=== PATIENT | male | born 1945 | race Caucasian/White ===

== ENCOUNTER → 2016-06-12 | Outpatient (CLI) | payer OTHER, MEDICARE ==
[2016-06-12 10:16] LABS: BASO % 0.6 %; BASO ABS # 0.04 K/uL (0-0.2); COMPLETE YES; EOS % 1.4 %; IG% 0.3 %; LYMPH % 20.5 %; LYMPH ABS # 1.35 K/uL (1.2-3.4); MEAN CELL VOLUME 90.6 fL (80-100); MEAN CORPUSCULAR HEMOGLOBIN 31.3 pg (25-34); MEAN CORPUSCULAR HGB CONC 34.6 g/dl (32-36); MEAN PLATELET VOLUME 12.4 fL (7.4-10.4); MONO % 7.2 %; PLATELET COUNT 133 K/uL (130-400); RED BLOOD COUNT 5.08 M/uL (4.7-6.1); WHITE BLOOD COUNT 6.57 K/uL (4.8-10.8)
[2016-06-12 10:56] LABS: ALT/SGPT 29 U/L (12-78); AST/SGOT 14 U/L (15-37); BLOOD UREA NITROGEN 16 mg/dl (7-18); BUN/CREATININE RATIO 18.9 (10-20); CALCIUM 9.3 mg/dl (8.5-10.1); CARBON DIOXIDE 27 mmol/L (21-32); CHLORIDE 107 mmol/L (98-107); CREATININE 0.86 mg/dl (0.60-1.40); GLUCOSE 99 mg/dl (70-99); HDL CHOLESTEROL 58 mg/dl; POTASSIUM 4.3 mmol/L (3.5-5.1); SODIUM 141 mmol/L (136-145)
[2016-06-12 10:57] LABS: CHOLESTEROL 175 mg/dl (0-200); ESTIMATED AVERAGE GLUCOSE 111 mg/dl; HA1C FLAG Normal (Normal); LDL CHOLESTEROL CALCULATED 99 mg/dl; TRIGLYCERIDES 91 mg/dl (0-150); VERY LOW DENSITY LIPOPROT CALC 18 mg/dl
[2016-06-12 11:22] LABS: URINE APPEARANCE CLEAR (CLEAR); URINE BILIRUBIN NEG (NEG); URINE COLOR YELLOW; URINE NITRITE NEG (NEG); URINE SPECIFIC GRAVITY 1.017 (1.000-1.030); UROBILINOGEN NEG (NEG)
[2016-06-12 11:24] LABS: MANUAL MICROSCOPIC REQUIRED? NO; REVIEW REQ? NO
--- NOTE | 2016-06-16 13:52 | CODING QUERY MEDICAL NECESSITY ---
SUPPORTING DIAGNOSIS NEEDED Dr. Iniguez, A supporting diagnosis is required for the test/procedure performed on this patient in order for us to be reimbursed by the patient's insurance. Please provide a supporting diagnosis for the following test/procedure listed below next to the test name along with your signature. *If there is no additional diagnosis for this patient that would support the following test/procedure please document that below next to the test/procedure. Test(s)/Procedure(s) that require a supporting diagnosis: * 65037 GLYCATED HEMOGLOBIN DIAGNOSIS: DATE OF SERVICE: 06/12/16 Provider Signature: Date: Thank you Jaime And[facility] Information Management Once completed, please kindly fax back to [phone] For questions please call [phone]
== END | disposition home or self-care (01) ==
LOC: C.LAB1850 09:35
PROVIDERS: ATTEND Internal Medicine
DX: E78.00 Pure hypercholesterolemia, unspecified (principal); R73.9 Hyperglycemia, unspecified

== ENCOUNTER → 2017-06-22 | Outpatient (CLI) | payer OTHER, MEDICARE ==
[2017-06-22 10:33] LABS: HEMOGLOBIN A1C 5.4 % (4.5-5.6)
[2017-06-22 10:34] LABS: ALT/SGPT 32 U/L (12-78); AST/SGOT 16 U/L (15-37); BLOOD UREA NITROGEN 20 mg/dl (7-18); CALCIUM 9.6 mg/dl (8.5-10.1); CARBON DIOXIDE 27 mmol/L (21-32); CHOLESTEROL 159 mg/dl (0-200); CREATININE 0.84 mg/dl (0.60-1.40); GLUCOSE 82 mg/dl (70-99); POTASSIUM 4.5 mmol/L (3.5-5.1); SODIUM 139 mmol/L (136-145)
[2017-06-22 10:37] LABS: LDL CHOLESTEROL CALCULATED 94 mg/dl
[2017-06-22 10:46] LABS: BASO % 0.4 %; BASO ABS # 0.03 K/uL (0-0.2); EOS % 2.7 %; EOS ABS # 0.19 K/uL (0-0.5); HEMATOCRIT 46.7 % (42-52); HEMOGLOBIN 16.2 g/dL (14.0-18.0); IG# 0.02 K/uL (0.00-0.02); LYMPH % 18.8 %; LYMPH ABS # 1.32 K/uL (1.2-3.4); MEAN CELL VOLUME 93.6 fL (80-100); MEAN CORPUSCULAR HEMOGLOBIN 32.5 pg (25-34); MEAN CORPUSCULAR HGB CONC 34.7 g/dl (32-36); MONO % 7.5 %; MONO ABS # 0.53 K/uL (0.11-0.59); NEUT % 70.3 %; NEUT ABS # 4.94 K/uL (1.4-6.5); PLATELET COUNT 127 K/uL (130-400); RED CELL DISTRIBUTION WIDTH CV 12.6 % (11.5-14.5); RED CELL DISTRIBUTION WIDTH SD 42.7 fL (36.4-46.3); WHITE BLOOD COUNT 7.03 K/uL (4.8-10.8)
== END | disposition home or self-care (01) ==
LOC: C.LAB1850 09:18
PROVIDERS: ATTEND Internal Medicine
DX: E78.00 Pure hypercholesterolemia, unspecified (principal); R73.9 Hyperglycemia, unspecified

== ENCOUNTER 2022-01-20 13:55 | Inpatient (IN) ==
--- NOTE | 2022-01-20 14:33 | CT Scan Report ---
CT SCAN OF THE BRAIN WITHOUT IV CONTRAST CLINICAL HISTORY: Left upper and lower extremity numbness. COMPARISON STUDY: No priors. TECHNIQUE: Unenhanced axial CT scan of the brain is performed from the vertex to the skull base. A do se lowering technique was utilized adhering to the principles of ALARA. CT DOSE: 614.27 mGy.cm FINDINGS: Brain parenchyma: There is age-related involutional change noting moderate subcortical and periventri cular microangiopathic disease. There is no hemorrhage, mass effect, or evidence of acute territorial ischemia by CT criteria. A chronic lacunar infarct is noted in the left thalamus. Calixto-white matter differentiation is preserved. No extra-axial fluid collection is seen. Ventricles, sulci, cisterns: Prominent secondary to involutional change. Intracranial vasculature: There is atherosclerotic calcification of the cavernous carotid and vertebr al artery. Calvarium: Unremarkable. Sinuses and mastoids: The visualized paranasal sinuses are clear. The mastoid air cells are well pneu matized. Orbits: The bony orbits are grossly intact. IMPRESSION: There is no hemorrhage, mass effect, or evidence of acute territorial ischemia by CT antelmo olmedo. ACT 112: Negative or not required by law. Electronically signed by: Dewayne Cevallos M.D. 01/20/2022 2:30 PM
[2022-01-20 14:42] LABS: Hematocrit (blood only) 47.2 % (40.1-51.0); Hemoglobin 16.5 g/dl (14.0-18.0); Mean Corpuscular Hemoglobin 31.6 pg (25.0-34.0); Mean Corpuscular Volume 90.4 fL (80.0-100.0); Mean Platelet Volume 11.9 fL (9.4-12.4); Platelet Count 147 K/uL (130-400); RDW Coefficient of Variation 12.2 % (11.5-14.5); RDW Standard Deviation 40.4 fL (36.4-46.3); Red Blood Count 5.22 M/uL (4.63-6.08)
[2022-01-20 15:01] LABS: Partial Thromboplastin Ratio 1.1; Partial Thromboplastin Time 29.8 Seconds (21.0-31.0); Prothrombin Time 10.7 Seconds (9.0-12.0)
[2022-01-20 15:05] LABS: Alanine Aminotransferase 19 U/L (7-52); Albumin Globulin Ratio 1.7 (0.9-2); Albumin Level 4.7 gm/dl (3.4-5.0); Alkaline Phosphatase 99 U/L (34-104); Anion Gap 9 (3-11); Aspartate Aminotransferase 20 U/L (13-39); BUN Creatinine Ratio 20.5 (10-20); Blood Urea Nitrogen 17 mg/dl (6-23); Calcium 9.9 mg/dl (8.5-10.1); Carbon Dioxide 22 mmol/L (21-32); Chloride 106 mmol/L (98-107); Est GFR (African American) 100.5 ml/min; Est GFR (Non-African American) 86.7 ml/min; Globulin 2.7 gm/dl (2.5-4.0); Glucose 101 mg/dl (70-99(Fasting)); Magnesium 1.8 mg/dl (1.7-2.4); Potassium 4.1 mmol/L (3.5-5.1); Sodium 137 mmol/L (136-145); Total Protein 7.4 gm/dl (6.0-8.3)
--- NOTE | 2022-01-20 17:00 | Electrocardiogram Report ---
Test Reason : Blood Pressure : / mmHG Vent. Rate : 098 BPM Atrial Rate : 098 BPM P-R Int : 188 ms QRS Dur : 090 ms QT Int : 356 ms P-R-T Axes : 051 016 067 degrees QTc Int : 454 ms Poor data quality, interpretation may be adversely affected Sinus rhythm with occasional Premature ventricular complexes Possible Left atrial enlargement Left ventricular hypertrophy Nonspecific ST and T wave abnormality Abnormal ECG No previous ECGs available Confirmed by Vadim Mora ([id number]) on 01/20/2022 4:59:45 PM Referred By: Confirmed By:Kirt Mora
[2022-01-20] MEDS: SODIUM CHLORIDE 0.9% 1000ML 1,000 ML IV SCH ×2 (17:01→23:43)
--- NOTE | 2022-01-20 17:01 | Emergency Department Note ---
Impression & Plan Stroke-like symptoms, Hypertension, Acute left-sided muscle weakness ED Provider Note INFORMANT: Patient and family ED PROVIDER(S): Addi Ibrahim MD CHIEF COMPLAINT: Numbness and weakness PLAN: Disposition: Admitted Condition: Good Outpatient prescription management: none Referral: None MEDICAL DECISION MAKING: Patient presented because of left-sided weakness that had some mild numbness. This occurred yesterday. Patient is not within the window for TNKase. His physical examination was concerning for weakness. He had slight drift in the left upper and left lower extremities. There was some drooping of the left nasolabial fold. A CT scan did not show any acute evidence of ischemia. His CBC and chemistry panel were unremarkable. The patient's ECG showed a sinus rhythm. I discussed the patient's findings with him and family. In light of his symptoms and the concern that he may have had a CVA and it is just not seen on CT imaging. Further management in the hospital was felt to be appropriate. Patient and family were in agreement. Patient had taken aspirin prior to arrival. He was given gentle saline hydration. He was noted to be moderately hypertensive. No medications for his blood pressure were given. The patient had a consultation placed with the [facility]. I did discuss the case with Dr. Lopez. He excepted the patient for admission. He did request CT angiography performed of the head and neck. This was ordered. The patient was found to have stenosis in the left carotid and incidental aneurysm noted. Patient was admitted by internal medicine for further management. Triage Nursing notes reviewed and agree them. Vital Signs: reviewed and remarkable for hypertension Differential diagnosis: CVA, TIA, infection, dehydration, metabolic abnormality, hypo/hyperglycemia, electrolyte disturbance, anemia, hypoxia, cardiac sources, intracerebral event, toxicologic, neurologic, as well as other pathologies. Diagnostics interpreted by me: ECG: Twelve-lead ECG reveals a sinus rhythm at 90 bpm. PVCs present. Left atrial enlargement and LVH present. Nonspecific ST and T wave abnormality. No acute ST elevation. Cardiac Monitoring: Cardiac monitoring ordered by me: The patient was placed on continuous cardiac monitoring and observed. It revealed a sinus rhythm at 78 beats per minute without ectopy or evidence of dysrhythmia. Imaging studies: Head CT: A noncontrast CT scan of the head was performed and was negative for tumor, fracture, intracranial hemorrhage, or other acute pathology. HPI: The patient is a 76year old male who presents to the Emergency Room with complaints of left-sided weakness. This started yesterday and is noted in the arm and leg. Patient states that the leg started first and then by the evening he noted some difficulty with the left arm. The patient also notes the following associated symptoms, none. The patient has taken a dose of aspirin prior to arrival for relieving factors. Current pain is rated as 0/10. Patient has a history of hypertension but no history of CVA/TIA. Pt denies LOC, headache, fevers, chills, diaphoresis, visual changes, neck pain, chest pain, breathing difficulties, nausea, vomiting, abdominal pain, back pain, melena, hematochezia, urinary symptoms, lymphadenopathy, rash, or other complaints. ROS: See above HPI for pertinent positives & negatives. A total of 10 systems reviewed and were otherwise negative. 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 Oropharynx unremarkable. EYES: Normal conjunctiva. Sclera non-icteric. PERRLA. EOMI. NECK: Inspection normal. Non-tender. Supple. No nuchal rigidity. FROM. No masses. RESPIRATORY: Clear to auscultation. No wheezes. No rales. Normal respiratory effort. CARDIAC: Normal rate. Normal rhythm. No murmurs. No rubs. Extremities warm and well perfused. Pulses equal. No JVD. GI: Soft, non-distended. No tenderness to palpation. No rebound or guarding. No masses. RECTAL: Deferred. MUSCULOSKELETAL: Atraumatic. Chest examination reveals no tenderness. The back is symmetrical on inspection without obvious abnormality. There is no CVA tenderness to palpation. No joint edema. LOWER EXTREMITIES: Calves are equal size bilaterally and non-tender. No edema. No discoloration. NEURO: Normal sensorium. There is mild flattening of the left nasolabial fold. The patient has some slight drift in the left upper and left lower extremities. 4 out of 5 strength in the left upper and left lower extremity. No other sensory or motor deficits noted. SKIN: No rash or jaundice noted. Addi Ibrahim MD Past Med/Surg History Medical History BPH (benign prostatic hyperplasia) Dry skin History of colon polyps Hypercholesterolemia Hyperglycemia Hyperlipidemia Hypertension Hypertension Seborrheic keratosis Surgical History History of colonoscopy History of esophagogastroduodenoscopy (EGD) with polyp removal History of wisdom tooth extraction Laryngeal polyp benign polypectomy in the late Family History Mother Breast cancer Cancer Some urothilial cancer Father Heart disease Myocardial infarction Sister Multiple sclerosis Other No family history of adverse response to anesthesia Denies family history of Prostate cancer Coronary heart disease Colorectal cancer Social History Smoking Status: Never smoker Age Started Using Tobacco: 22; Age Quit Using Tobacco: 42; packs per day: 0.5; Second Hand Exposure: No; Hx Alcohol Use: Yes Alcohol type: beer Alcohol Intake Frequency Comment: about 3-4 beers on Fridays and Saturdays. 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 Feels Safe at Home: Yes Childhood Exposure to Second-Hand Smoke: Yes caffeine: Yes Dental Care, Regularly: Yes Physical Activity Frequency: 5-6 Times per Week Seatbelt Use: always Sunscreen Use: Yes Assistive Devices: Glasses Allergies Allergies Allergy/AdvReac Type Severity Reaction Status Date / Time No Known Allergies Allergy Verified 07/05/21 08:49 Home Meds Home Medications Medication Instructions Recorded Confirmed acetaminophen 500 mg tablet 1,000 mg PO Q6H PRN Pain 06/17/20 01/20/22 (Tylenol Extra Strength) Previous Rx's Medication Instructions Recorded ibuprofen 600 mg tablet 600 mg PO Q8H PRN pain #10 tabs 05/27/20 amoxicillin 500 mg tablet 2,000 mg PO UD PRN prior to dental 06/10/20 procedures #16 tabs lisinopril 20 mg tablet See Rx Instructions .Route 09/26/21 .COMPLEX #90 tabs simvastatin 80 mg tablet 80 mg PO .COMPLEX #90 tabs 11/25/21 Results & Data (ED) Vital Signs Vital Signs - 24 hr 01/20/22 14:03 01/20/22 14:26 01/20/22 16:18 Temperature 36.8 C Temperature Source Temporal Artery Scan Pulse Rate 98 H Pulse Rate [Right Finger] 90 Respiratory Rate 20 19 Respiratory Effort / Characteristics Non-Labored Respiratory Depth Normal Normal Blood Pressure 151/101 H Blood Pressure [Right Arm] 184/123 H Blood Pressure Mean 117 Blood Pressure Mean [Right Arm] 143 Pulse Oximetry 95 94 Oxygen Delivery Method Room Air Room Air Room Air Sepsis Recent Fever Within 48 Hours No Sepsis New/Unexplained Change in Mental Status N/A Sepsis Action Taken by Nursing No Action Required 01/20/22 16:18 01/20/22 16:39 Temperature Temperature Source Pulse Rate Pulse Rate [Right Finger] Respiratory Rate Respiratory Effort / Characteristics Respiratory Depth Blood Pressure Blood Pressure [Right Arm] 173/112 H Blood Pressure Mean Blood Pressure Mean [Right Arm] 132 Pulse Oximetry 94 Oxygen Delivery Method Room Air Sepsis Recent Fever Within 48 Hours Sepsis New/Unexplained Change in Mental Status Sepsis Action Taken by Nursing Laboratory Data Result diagrams: 01/20/22 14:20 01/20/22 14:20 Lab Results 01/20/22 01/20/22 01/20/22 Range/Units 14:20 14:20 14:20 WBC 8.30 (4.8-10.8) K/ul RBC 5.22 (4.63-6.08) M/uL Hgb 16.5 (14.0-18.0) g/dl Hct 47.2 (40.1-51.0) % MCV 90.4 (80.0-100.0) fL MCH 31.6 (25.0-34.0) pg MCHC 35.0 (32.0-36.0) g/dL RDW Std Deviation 40.4 (36.4-46.3) fL RDW Coeff of Tam 12.2 (11.5-14.5) % Plt Count 147 (130-400) K/uL MPV 11.9 (9.4-12.4) fL PT 10.7 (9.0-12.0) Seconds INR 1.0 (0.9-1.1) APTT 29.8 (21.0-31.0) Seconds PTT Ratio 1.1 Sodium 137 (136-145) mmol/L Potassium 4.1 (3.5-5.1) mmol/L Chloride 106 (98-107) mmol/L Carbon Dioxide 22 (21-32) mmol/L Anion Gap 9 (3-11) BUN 17 (6-23) mg/dl Creatinine 0.83 (0.6-1.4) mg/dl Est Cr Clr Drug Dosing Not Reportable Est GFR ( Amer) 100.5 ml/min Est GFR (Non-Af Amer) 86.7 ml/min BUN/Creatinine Ratio 20.5 H (10-20) Glucose 101 H (70-99(Fasting)) mg/dl Calcium 9.9 (8.5-10.1) mg/dl Magnesium 1.8 (1.7-2.4) mg/dl Total Bilirubin 1.0 (0.2-1.0) mg/dl AST 20 (13-39) U/L ALT 19 (7-52) U/L Alkaline Phosphatase 99 (34-104) U/L Total Protein 7.4 (6.0-8.3) gm/dl Albumin 4.7 (3.4-5.0) gm/dl Globulin 2.7 (2.5-4.0) gm/dl Albumin/Globulin Ratio 1.7 (0.9-2) Urine Color Urine Appearance (Clear) Urine pH (4.5-7.5) Ur Specific [place] (1.000-1.030) Urine Protein (Negative) Urine Glucose (UA) (Negative) Urine Ketones (Negative) Urine Blood (Negative) Urine Nitrite (Negative) Urine Bilirubin (Negative) Urine Urobilinogen (Negative) Ur Leukocyte Esterase (Negative) Urine WBC (Auto) (0-5) /hpf Urine RBC (Auto) (0-4) /hpf U Hyaline Cast (Auto) (0-5) /lpf U Epithel Cells (Auto) (0-5) /lpf Urine Bacteria (Auto) (Negative) SARS-CoV-2, RNA, NAAT (NEGATIVE) 01/20/22 01/20/22 Range/Units 16:59 17:20 WBC (4.8-10.8) K/ul RBC (4.63-6.08) M/uL Hgb (14.0-18.0) g/dl Hct (40.1-51.0) % MCV (80.0-100.0) fL MCH (25.0-34.0) pg MCHC (32.0-36.0) g/dL RDW Std Deviation (36.4-46.3) fL RDW Coeff of Tam (11.5-14.5) % Plt Count (130-400) K/uL MPV (9.4-12.4) fL PT (9.0-12.0) Seconds INR (0.9-1.1) APTT (21.0-31.0) Seconds PTT Ratio Sodium (136-145) mmol/L Potassium (3.5-5.1) mmol/L Chloride (98-107) mmol/L Carbon Dioxide (21-32) mmol/L Anion Gap (3-11) BUN (6-23) mg/dl Creatinine (0.6-1.4) mg/dl Est Cr Clr Drug Dosing Est GFR ( Amer) ml/min Est GFR (Non-Af Amer) ml/min BUN/Creatinine Ratio (10-20) Glucose (70-99(Fasting)) mg/dl Calcium (8.5-10.1) mg/dl Magnesium (1.7-2.4) mg/dl Total Bilirubin (0.2-1.0) mg/dl AST (13-39) U/L ALT (7-52) U/L Alkaline Phosphatase (34-104) U/L Total Protein (6.0-8.3) gm/dl Albumin (3.4-5.0) gm/dl Globulin (2.5-4.0) gm/dl Albumin/Globulin Ratio (0.9-2) Urine Color Dark Yellow Urine Appearance Clear (Clear) Urine pH 6.5 (4.5-7.5) Ur Specific [place] 1.026 (1.000-1.030) Urine Protein Trace H (Negative) Urine Glucose (UA) Negative (Negative) Urine Ketones 1+ H (Negative) Urine Blood Negative (Negative) Urine Nitrite Negative (Negative) Urine Bilirubin Negative (Negative) Urine Urobilinogen Negative (Negative) Ur Leukocyte Esterase Negative (Negative) Urine WBC (Auto) 1-5 (0-5) /hpf Urine RBC (Auto) 0-4 (0-4) /hpf U Hyaline Cast (Auto) 1-5 (0-5) /lpf U Epithel Cells (Auto) 10-20 H (0-5) /lpf Urine Bacteria (Auto) Negative (Negative) SARS-CoV-2, RNA, NAAT NEGATIVE (NEGATIVE) Administered Medications Sodium Chloride (Nss 1000ml) 1,000 mls @ 80 mls/hr IV .[id number] PATRICIO Stop: 02/19/22 16:59 Last Admin: 01/20/22 17:01 Dose: 80 mls/hr Documented By: LEANDRO Discontinued Medications Ioversol (Optiray 300 500ml) 104 ml IV ONCE ONE Stop: 01/20/22 17:28 Last Admin: 01/20/22 17:28 Dose: 104 ml Documented By: MODE Lisinopril (Lisinopril 20 Mg Tab) 20 mg PO NOW STA Stop: 01/20/22 20:23 Last Admin: 01/20/22 21:31 Dose: 20 mg Documented By: SAUMYA Imaging Data Radiologist's Impression: Head CT 01/20/22 14:08 CT SCAN OF THE BRAIN WITHOUT IV CONTRAST CLINICAL HISTORY: Left upper and lower extremity numbness. COMPARISON STUDY: No priors. TECHNIQUE: Unenhanced axial CT scan of the brain is performed from the vertex to the skull base. A dose lowering technique was utilized adhering to the principles of ALARA. CT DOSE: 614.27 mGy.cm FINDINGS: Brain parenchyma: There is age-related involutional change noting moderate subcortical and periventricular microangiopathic disease. There is no hemorrhage, mass effect, or evidence of acute territorial ischemia by CT criteria. A chronic lacunar infarct is noted in the left thalamus. Calixto-white matter differentiation is preserved. No extra-axial fluid collection is seen. Ventricles, sulci, cisterns: Prominent secondary to involutional change. Intracranial vasculature: There is atherosclerotic calcification of the cavernous carotid and vertebral artery. Calvarium: Unremarkable. Sinuses and mastoids: The visualized paranasal sinuses are clear. The mastoid air cells are well pneumatized. Orbits: The bony orbits are grossly intact. IMPRESSION: There is no hemorrhage, mass effect, or evidence of acute territorial ischemia by CT criteria. ACT 112: Negative or not required by law. Electronically signed by: Dewayne Cevallos M.D. 01/20/2022 2:30 PM Chest X-Ray 01/20/22 16:52 XR chest 1V portable CLINICAL HISTORY: stroke like symptoms TECHNIQUE: Single frontal radiograph of the chest was obtained. Comparison: Comparison is made to chest and abdomen radiograph 06/17/2020 FINDINGS: No lines and tubes are seen. Cardiomegaly is noted. There is prominence and cephalization of the vasculature with Jess B lines seen. No evidence of pleural effusion or pneumothorax. Stable obscuration of the left costophrenic angle is favored to represent prominent epicardial fat pad. IMPRESSION: Cardiomegaly and mild pulmonary edema. ACT 112: Negative or not required by law. Electronically signed by: Jacek Pena M.D. 01/20/2022 5:18 PM Head CTA 01/20/22 17:12 CT angio head w con CLINICAL HISTORY: left weakness, stroke symptoms TECHNIQUE: CT angiography of the head was performed following intravenous administration of iodinated contrast. Coronal and sagittal MIPS were obtained from the axial data set and were submitted for review. Automated dose lowering techniques and/or adjustment according to patient size were utilized for this examination. All measurements were calculated based on NASCET criteria. Comparison: Comparison is made to CT head 01/20/[address] neck 01/20/2022 FINDINGS: CTA Head: The anterior and posterior cerebral circulations are patent. Triple anterior cerebral arteries are noted. There is a 4 mm anterior inferiorly oriented aneurysm from the anterior communicating artery. Nonhemodynamically significant stenosis is seen in the left V4 segment. Atherosclerotic disease is noted. IMPRESSION: 1. No occlusion is seen. 2. 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 3. Additional findings as above. Assessment of stenosis of the internal carotid arteries is based on NASCET criteria. ACT 112: Negative or not required by law. Electronically signed by: Jacek Pena M.D. 01/20/2022 6:16 PM Neck CTA 01/20/22 17:12 NECK CTA HISTORY: left weakness, stroke symptoms TECHNIQUE: Multiaxial CT images of the neck were performed following the intravenous administration of contrast to evaluate the major cervical vessels. Maximum intensity projection images were also obtained. All measurements were calculated based on NASCET criteria. A dose lowering technique was utilized adhering to the principles of ALARA. COMPARISON STUDY: None. FINDINGS: The aortic arch and proximal great vessels are widely patent. Moderate focal narrowing of approximately 50% within the distal intracranial portion of the left vertebral artery. There is moderate to severe narrowing with in the proximal 2 cm of the right vertebral artery. The bilateral common carotid arteries are patent. No evidence for carotid or vertebral artery dissection. There is moderate atherosclerotic plaque within the bilateral carotid bifurcations resulting in up to 50% stenosis within the proximal 1.5 cm of the right internal carotid artery. There is high-grade stenosis of up to 90% narrowing at the takeoff of the left internal carotid artery best seen on image 241. The mid to distal bilateral internal carotid arteries are widely patent. A 1 cm nodular density within the right lung apex on image 108. This favors an area of scarring. However, follow-up chest CT in 6 months is recommended to ensure stability. IMPRESSION: 1. Focal high-grade stenosis of up to 90% narrowing at the takeoff of the left internal carotid artery. 2. There is approximately 50% narrowing at the proximal right internal carotid artery. 3. Moderate to severe narrowing within the proximal right vertebral artery. ACT 112: Negative or not required by law. Electronically signed by: Seng Lezama M.D. 01/20/2022 6:02 PM Discharge Plan Visit Data Chief Complaint: TIA Symptoms Stated Complaint: LEFT SIDE TINGLING AND LEG NUMB ED Provider: Addi Ibrahim Discharge Problem: Stroke-like symptoms, Hypertension, Acute left-sided muscle weakness Patient Disposition: Admitted As Inpatient Discharge Instructions Interventions: ED Discharge Assessment Last Done: 01/20/22 21:17
--- NOTE | 2022-01-20 17:20 | XRay Report ---
XR chest 1V portable CLINICAL HISTORY: stroke like symptoms TECHNIQUE: Single frontal radiograph of the chest was obtained. Comparison: Comparison is made to chest and abdomen radiograph 06/17/2020 FINDINGS: No lines and tubes are seen. Cardiomegaly is noted. There is prominence and cephalization of the vasc ulature with Jess B lines seen. No evidence of pleural effusion or pneumothorax. Stable obscuration of the left costophrenic angle is favored to represent prominent epicardial fat pad. IMPRESSION: Cardiomegaly and mild pulmonary edema. ACT 112: Negative or not required by law. Electronically signed by: Jacek Pena M.D. 01/20/2022 5:18 PM
[2022-01-20] MEDS ORDERED: OPTIRAY 300 500mL IV ONE (17:27)
--- NOTE | 2022-01-20 18:03 | CT Scan Report ---
NECK CTA HISTORY: left weakness, stroke symptoms TECHNIQUE: Multiaxial CT images of the neck were performed following the intravenous administration o f contrast to evaluate the major cervical vessels. Maximum intensity projection images were also obta ined. All measurements were calculated based on NASCET criteria. A dose lowering technique was utili zed adhering to the principles of ALARA. COMPARISON STUDY: None. FINDINGS: The aortic arch and proximal great vessels are widely patent. Moderate focal narrowing of approximately 50% within the distal intracranial portion of the left vertebral artery. There is moder ate to severe narrowing within the proximal 2 cm of the right vertebral artery. The bilateral common carotid arteries are patent. No evidence for carotid or vertebral artery dissection. There is moderat e atherosclerotic plaque within the bilateral carotid bifurcations resulting in up to 50% stenosis wi thin the proximal 1.5 cm of the right internal carotid artery. There is high-grade stenosis of up to 90% narrowing at the takeoff of the left internal carotid artery best seen on image 241. The mid to d istal bilateral internal carotid arteries are widely patent. A 1 cm nodular density within the right lung apex on image 108. This favors an area of scarring. However, follow-up chest CT in 6 months is r ecommended to ensure stability. IMPRESSION: 1. Focal high-grade stenosis of up to 90% narrowing at the takeoff of the left internal carotid arter y. 2. There is approximately 50% narrowing at the proximal right internal carotid artery. 3. Moderate to severe narrowing within the proximal right vertebral artery. ACT 112: Negative or not required by law. Electronically signed by: Seng Lezama M.D. 01/20/2022 6:02 PM
--- NOTE | 2022-01-20 18:19 | CT Scan Report ---
CT angio head w con CLINICAL HISTORY: left weakness, stroke symptoms TECHNIQUE: CT angiography of the head was performed following intravenous administration of iodinate d contrast. Coronal and sagittal MIPS were obtained from the axial data set and were submitted for re view. Automated dose lowering techniques and/or adjustment according to patient size were utilized f or this examination. All measurements were calculated based on NASCET criteria. Comparison: Comparison is made to CT head 01/20/[address] neck 01/20/2022 FINDINGS: CTA Head: The anterior and posterior cerebral circulations are patent. Triple anterior cerebral ambrocio michael are noted. There is a 4 mm anterior inferiorly oriented aneurysm from the anterior communicating artery. Nonhemodynamically significant stenosis is seen in the left V4 segment. Atherosclerotic dise ase is noted. IMPRESSION: 1. No occlusion is seen. 2. 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 3. Additional findings as above. Assessment of stenosis of the internal carotid arteries is based on NASCET criteria. ACT 112: Negative or not required by law. Electronically signed by: Jacek Pena M.D. 01/20/2022 6:16 PM
--- NOTE | 2022-01-20 18:20 | History & Physical Report ---
Date of Service January 20, 2022 Assessment & Plan (1) Stroke-like symptoms: Plan: - 24 hours of left hand and left leg weakness with decreased prominence of left nasolabial fold, let facial droop. - Took full dose of aspirin before presenting to ED today. - He is is out of the window for TNKase for mechanical thrombectomy. - Head CT without evidence of hemorrhage, ischemia, or mass. 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 - Risk factors for stroke include age, hypertension, hyperlipidemia. - MRI completed, results pending. - Echo in a.m. - CBC, BMP, HbA1c, PT/INR, lipid panel in a.m. - N.p.o. for now. - PT, OT, ST to evaluate. (2) Hypertension: Plan: - Patient takes lisinopril 20 mg daily, takes this in the morning, however this morning did not. - He is quite hypertensive in the ED, we will give his missed dose of lisinopril and can add on prn medications if he continues to be hypertensive overnight. - As he is 24+ hours from symptom onset, there is no longer a need to allow for permissive hypertension. (3) Hypercholesterolemia: Plan: - Continue simvastatin for now, dose recorded as 80 mg but max dose for this is 40 mg - As this is moderate intensity statin, he may benefit from being placed on high intensity stain such as atorvastatin or rosuvastatin. Will defer for now pending lipid panel in AM. (4) Hyperglycemia: Plan: - Reported history of by PCP of intermittently elevated blood sugars. - HgbA1c will be check in the AM as part of TIA/CVA workup. - BG 101 on admission--no need for Accucheks or SSI presently. Plan - OBS on med/tele. - SCDs, Lovenox for VTE ppx. - Full Code. History of Present Illness Chief Complaint: Left-sided weakness x 1 day Primary Care Provider: Vadim Wang MD Mr. Davis is a 76-year-old male with past medical history significant for hyp ertension and hyperlipidemia who presents today for evaluation of left-sided weakness since yesterday afternoon. At the end of workday, he was typing on his computer and noticed clumsiness with his left hand. Later on when he got up to walk, he also noticed that his left leg seemed to be dragging more. He chose to monitor to see if they would resolve by the morning, however when they did not he chose to present to the ED this afternoon for further evaluation. He did go to work today and was in several meetings and denies any difficulty with word finding or speech, he has had no falls has intact sensation, however feels like he is just a little off balance due to the left-sided weakness. He does thinks his symptoms have partially gotten better. In hindsight, he does think he had some difficulty buttoning his shirt yesterday morning due to left hand clumsiness. He said no visual changes or headache, nausea, or vomiting. Denies any chest pain or palpitations He has no history of strokes. He does take lisinopril in the morning and he reports compliance with these forget to take lisinopril this morning. BP is usually 130s/80s when he checks it at home, which he does often. Quit smoking 38 years ago, has occasional alcohol on the weekends. On presentation is hypertensive, otherwise vital signs within normal limits, he is hemodynamically stable. Labs unrevealing. Head CT is without evidence of hemorrhage, mass-effect, or for acute territorial ischemia. 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 neck CTA shows focal high- grade stenosis of the 90% narrowing at the takeoff of the left ICA, approximately 50% narrowing at the proximal right ICA, moderate to severe narrowing within the proximal right vertebral artery. He reports he did take a full dose of aspirin this afternoon before coming to the ED. Allergies Allergy/AdvReac Type Severity Reaction Status Date / Time No Known Allergies Allergy Verified 07/05/21 08:49 Home Medications Medication Instructions Recorded Confirmed Type ibuprofen 600 mg tablet 600 mg PO Q8H PRN pain #10 tabs 05/27/20 01/20/22 Rx amoxicillin 500 mg tablet 2,000 mg PO UD PRN prior to dental 06/10/20 01/20/22 Rx procedures #16 tabs acetaminophen 500 mg tablet 1,000 mg PO Q6H PRN Pain 06/17/20 01/20/22 History (Tylenol Extra Strength) lisinopril 20 mg tablet See Rx Instructions .Route 09/26/21 01/20/22 Rx .COMPLEX #90 tabs simvastatin 80 mg tablet 80 mg PO .COMPLEX #90 tabs 11/25/21 01/20/22 Rx Past Med/Surg History Medical History BPH (benign prostatic hyperplasia) Dry skin History of colon polyps Hypercholesterolemia Hyperglycemia Hyperlipidemia Hypertension Hypertension Seborrheic keratosis Surgical History History of colonoscopy History of esophagogastroduodenoscopy (EGD) with polyp removal History of wisdom tooth extraction Laryngeal polyp benign polypectomy in the late 1979' Family History Mother , age 86 of breast cancer Breast cancer Cancer Some urothilial cancer Father , age 57 of heart failure Heart disease Myocardial infarction Sister Multiple sclerosis Other No family history of adverse response to anesthesia Denies family history of Prostate cancer Coronary heart disease Colorectal cancer Social History Smoking Status: Former smoker Age Started Using Tobacco: 22; Age Quit Using Tobacco: 42; packs per day: 0.5; Second Hand Exposure: No; Hx Alcohol Use: Yes Alcohol type: beer and wine Alcohol Intake Frequency Comment: about 3-4 beers on Fridays and Saturdays. 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 Other Information That Helps Us Care for You: No Feels Safe at Home: No Is there a partner from a previous relationship who is making you feel unsafe now?: No Safety Concerns: Feels Safe At This Time Childhood Exposure to Second-Hand Smoke: Yes caffeine: Yes Dental Care, Regularly: Yes Physical Activity Frequency: 5-6 Times per Week Seatbelt Use: always Sunscreen Use: Yes Assistive Devices: Glasses Review of Systems Review of Systems: Constitutional: No fever/chills, weakness, fatigue, myalgias, anorexia, night sweats Eyes: No diplopia, no worsening or blurred vision ENT: normal hearing, no trouble swallowing Respiratory: No cough, sputum, dyspnea at rest or on exertion Cardiovascular: No chest pain, tightness or palpitations Abdomen: No pain, nausea, vomiting, diarrhea or constipation : Denies dysuria, hematuria, increased urgency/frequency, urinary retention Musculoskeletal: No joint pain, calf pain, swelling Neurologic: left leg and left hand "clumsiness" since afternoon; numbness/tingling, or balance problems Psychiatric: No anxiety or depression Skin: No rash or itch Physical Exam Physical Exam: General: awake, alert, no apparent distress Head: Normocephalic, atraumatic ENT: PERRL, EOMI, no pharyngeal exudate, mucous membranes moist Chest: Clear to auscultation, on room air, no adventitious breath sounds Cardiac: Regular rate and rhythm, no murmur, no JVD, normal peripheral pulses, good capillary refill Abdominal: NABS x 4 quadrants, soft, nontender to palpation, no rebound, guarding or tenderness Extremities: Normal inspection, no peripheral edema or erythema, calfs nontender to palpation Psych: Normal mood and affect Neuro: Left upper and lower extremity strength intact, however with some drift, there is some flattening of the left nasolabial fold droop; strength 5/5 on right side, both upper and lower extremities; AAO x 3,speech is clear, no peripheral sensory deficits Skin: no rash or erythema Results & Data Results & Data ([facility]) Vital Signs (Past 12 Hours) Vital Signs Temp Pulse Pulse Resp BP BP Pulse Ox 01/20/22 16:39 173/112 H 01/20/22 16:18 94 01/20/22 16:18 90 19 184/123 H 94 01/20/22 14:26 01/20/22 14:03 36.8 C 98 H 20 151/101 H 95 O2 Del Method 01/20/22 16:39 01/20/22 16:18 Room Air 01/20/22 16:18 Room Air 01/20/22 14:26 Room Air 01/20/22 14:03 Room Air Laboratory Results Abnormal lab results 01/20/22 Range/Units 14:20 BUN/Creatinine Ratio 20.5 H (10-20) Glucose 101 H (70-99(Fasting)) mg/dl Diagnostic Findings Head CT 01/20/22 14:08 CT SCAN OF THE BRAIN WITHOUT IV CONTRAST CLINICAL HISTORY: Left upper and lower extremity numbness. COMPARISON STUDY: No priors. TECHNIQUE: Unenhanced axial CT scan of the brain is performed from the vertex to the skull base. A dose lowering technique was utilized adhering to the principles of ALARA. CT DOSE: 614.27 mGy.cm FINDINGS: Brain parenchyma: There is age-related involutional change noting moderate subcortical and periventricular microangiopathic disease. There is no hemorrhage, mass effect, or evidence of acute territorial ischemia by CT criteria. A chronic lacunar infarct is noted in the left thalamus. Calixto-white matter differentiation is preserved. No extra-axial fluid collection is seen. Ventricles, sulci, cisterns: Prominent secondary to involutional change. Intracranial vasculature: There is atherosclerotic calcification of the cavernous carotid and vertebral artery. Calvarium: Unremarkable. Sinuses and mastoids: The visualized paranasal sinuses are clear. The mastoid air cells are well pneumatized. Orbits: The bony orbits are grossly intact. IMPRESSION: There is no hemorrhage, mass effect, or evidence of acute territorial ischemia by CT criteria. ACT 112: Negative or not required by law. Electronically signed by: Dewayne Cevallos M.D. 01/20/2022 2:30 PM Chest X-Ray 01/20/22 16:52 XR chest 1V portable CLINICAL HISTORY: stroke like symptoms TECHNIQUE: Single frontal radiograph of the chest was obtained. Comparison: Comparison is made to chest and abdomen radiograph 06/17/2020 FINDINGS: No lines and tubes are seen. Cardiomegaly is noted. There is prominence and cephalization of the vasculature with Jess B lines seen. No evidence of pleural effusion or pneumothorax. Stable obscuration of the left costophrenic angle is favored to represent prominent epicardial fat pad. IMPRESSION: Cardiomegaly and mild pulmonary edema. ACT 112: Negative or not required by law. Electronically signed by: Jacek Pena M.D. 01/20/2022 5:18 PM Head CTA 01/20/22 17:12 CT angio head w con CLINICAL HISTORY: left weakness, stroke symptoms TECHNIQUE: CT angiography of the head was performed following intravenous administration of iodinated contrast. Coronal and sagittal MIPS were obtained from the axial data set and were submitted for review. Automated dose lowering techniques and/or adjustment according to patient size were utilized for this examination. All measurements were calculated based on NASCET criteria. Comparison: Comparison is made to CT head 01/20/[address] neck 01/20/2022 FINDINGS: CTA Head: The anterior and posterior cerebral circulations are patent. Triple anterior cerebral arteries are noted. There is a 4 mm anterior inferiorly oriented aneurysm from the anterior communicating artery. Nonhemodynamically significant stenosis is seen in the left V4 segment. Atherosclerotic disease is noted. IMPRESSION: 1. No occlusion is seen. 2. 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 3. Additional findings as above. Assessment of stenosis of the internal carotid arteries is based on NASCET criteria. ACT 112: Negative or not required by law. Electronically signed by: Jacek Pena M.D. 01/20/2022 6:16 PM Neck CTA 01/20/22 17:12 NECK CTA HISTORY: left weakness, stroke symptoms TECHNIQUE: Multiaxial CT images of the neck were performed following the intravenous administration of contrast to evaluate the major cervical vessels. Maximum intensity projection images were also obtained. All measurements were calculated based on NASCET criteria. A dose lowering technique was utilized adhering to the principles of ALARA. COMPARISON STUDY: None. FINDINGS: The aortic arch and proximal great vessels are widely patent. Moderate focal narrowing of approximately 50% within the distal intracranial portion of the left vertebral artery. There is moderate to severe narrowing within the proximal 2 cm of the right vertebral artery. The bilateral common carotid arteries are patent. No evidence for carotid or vertebral artery dissection. There is moderate atherosclerotic plaque within the bilateral carotid bifurcations resulting in up to 50% stenosis within the proximal 1.5 cm of the right internal carotid artery. There is high-grade stenosis of up to 90% narrowing at the takeoff of the left internal carotid artery best seen on image 241. The mid to distal bilateral internal carotid arteries are widely patent. A 1 cm nodular density within the right lung apex on image 108. This favors an area of scarring. However, follow-up chest CT in 6 months is recommended to ensure stability. IMPRESSION: 1. Focal high-grade stenosis of up to 90% narrowing at the takeoff of the left internal carotid artery. 2. There is approximately 50% narrowing at the proximal right internal carotid artery. 3. Moderate to severe narrowing within the proximal right vertebral artery. ACT 112: Negative or not required by law. Electronically signed by: Seng Lezama M.D. 01/20/2022 6:02 PM Code Status & VTE Plan Code Status Full Code. Supervising Physician Co-Signing Physician Notes I personally saw and examined the patient. I verified all reyes points and agree with Jane Lawson PA-C with the following exceptions and/or additions: 76 year old right handed male admission for left sided weakness. Improving symptoms but still with some weakness in left leg and clumsiness of left hand O/E A&Ox3, HS1+2, no murmurs, Chest CTAB, Abdo SNT, CN2-> 12 intact, left proposal engineer strength 4/5, left sided pronator drift, left hip flexion 4/5 otherwise 5/5 b/l equal strength A/P Suspected CVA - not for tPA given duration of symptoms, CTA head/neck, MRI brain, HbA1C and lipid panel with AM labs. ASA 324mg PO took at home then 81mg PO daily, consult neuro, PT/OT PG Care Time/CCT Total # of Minutes Spent Total Time Spent with Patient: Total time spent is greater than 50% in coordination of care (as documented) at patient's floor/unit and/or counseling patient: Coding Level of Care Code INT OBSERVATION CARE 70M LVL 3 Diagnoses Stroke-like symptoms R29.90 Hypertension I10 Hypercholesterolemia E78.00 Hyperglycemia R73.9
[2022-01-20] MEDS ORDERED: lisinopril 20 MG TAB PO STA (20:22)
[2022-01-20] MEDS ORDERED: SIMVASTATIN 80 MG TAB PO SCH (21:15)
[2022-01-20] MEDS ORDERED: ACETAMINOPHEN 500 MG TAB PO PRN (21:15)
[2022-01-20] MEDS ORDERED: PHARMACIST DISCHARGE MED REC CONSULT PRN (21:15)
[2022-01-20 22:02] LABS: Appearance Urine Clear (Clear); Bacteria Urine Automated Negative (Negative); Bilirubin Urine Negative (Negative); Blood Urine Negative (Negative); Color Urine Dark Yellow; Glucose Urine UA Negative (Negative); Ketones Urine 1+ (Negative); Leukocyte Esterase Urine Negative (Negative); Nitrite Urine Negative (Negative); Protein Urine Trace (Negative); RBC Urine Automated 0-4 /hpf (0-4); Specific Gravity Urine 1.026 (1.000-1.030); Urobilinogen Urine Negative (Negative); pH Urine 6.5 (4.5-7.5)
--- NOTE | 2022-01-20 23:13 | Magnetic Resonance Report ---
MR brain wo con CLINICAL HISTORY: left sided weakness TECHNIQUE: Multiplanar and multisequence MR images of the brain were obtained without intravenous con trast. Comparison: Comparison is made to CT head 01/20/2022 FINDINGS: Focal restricted diffusion is in the right periventricular white matter with associated,. Foci of T2 and FLAIR hyperintensity are noted in the paraventricular areas consistent with chronic small vessel ischemic disease. Ex vacuo ventriculomegaly and sulcal enlargement is noted compatible with diffuse e ncephalomalacia. No mass is seen. There is no mass effect or midline shift. There is no evidence of a cute intraparenchymal hemorrhage. No extra axial fluid collections are seen. The corpus callosum, pit uitary gland, and cerebellar tonsils appear grossly unremarkable. Flow voids of the major intracranial arterial vessels are identified. The imaged portions of the para nasal sinuses, mastoid air cells, and orbits are unremarkable. IMPRESSION: There is an acute infarct in the right supraventricular white matter without evidence of hemorrhagic transformation. ACT 112: Negative or not required by law. Results were communicated to patient's physician Dr. Holguin at the time of the dictation. Electronically signed by: Jacek Pena M.D. 01/20/2022 11:10 PM
--- NOTE | 2022-01-21 04:48 | Communication Note ---
Date of Service: January 21, 2022 MRI brain showed acute right supraventricular stroke. Patient is out of window for tPA. Updated the patient. Patient states he took a full aspirin yesterday at home. Baby aspirin ordered for subsequent mornings. Holding BP meds for permissive HTN. L ICA w/ 90% stenosis noted on CTA.
[2022-01-21 06:37] LABS: Basophils # (auto) 0.04 K/uL (0-0.2); Basophils % (auto) 0.6 %; Eosinophils % (auto) 1.5 %; Hematocrit (blood only) 46.2 % (40.1-51.0); Immature Granulocytes # (auto) 0.02 K/uL (0.00-0.02); Immature Granulocytes % (auto) 0.3 %; Lymphocytes # (auto) 1.25 K/uL (1.2-3.4); Lymphocytes % (auto) 18.5 %; Mean Corpuscular Hemoglobin 32.1 pg (25.0-34.0); Mean Corpuscular Hgb Conc 34.6 g/dL (32.0-36.0); Mean Corpuscular Volume 92.6 fL (80.0-100.0); Mean Platelet Volume 12.2 fL (9.4-12.4); Monocytes # (auto) 0.49 K/uL (0.24-0.82); Monocytes % (auto) 7.2 %; Neutrophils # (auto) 4.87 K/uL (1.4-6.5); Neutrophils % (auto) 71.9 %; Platelet Count 137 K/uL (130-400); RDW Coefficient of Variation 12.2 % (11.5-14.5); RDW Standard Deviation 41.8 fL (36.4-46.3); Red Blood Count 4.99 M/uL (4.63-6.08); White Blood Count 6.77 K/ul (4.8-10.8)
[2022-01-21 06:56] LABS: BUN Creatinine Ratio 22.7 (10-20); Calcium 9.5 mg/dl (8.5-10.1); Chol HDL Ratio 3.7 (0-5); Creatinine Clr Calc Pharmacy 100.5 ml/min; Est GFR (African American) 104.7 ml/min; Est GFR (Non-African American) 90.4 ml/min; Potassium 3.9 mmol/L (3.5-5.1)
[2022-01-21 07:52] LABS: Estimated Average Glucose 117 mg/dl; Hemoglobin A1C 5.7 % (4.5-5.6)
[2022-01-21] MEDS: ENOXAPARIN INJ 40 MG/0.4 ML SYR SQ SCH (08:21)
[2022-01-21] MEDS: ASPIRIN 81 MG ECTAB PO SCH (08:21)
[2022-01-21] MEDS ORDERED: lisinopril 20 MG TAB PO SCH ×2 (09:00→21:00)
[2022-01-21] MEDS ORDERED: INSULIN ASPART PER UNIT ONE ×2 (09:12→11:05)
--- NOTE | 2022-01-21 11:00 | Neurology Consultation ---
Date of Consultation January 21, 2022 Assessment & Plan (1) Acute CVA (cerebrovascular accident): (2) Acute left hemiparesis: (3) Hypertension: (4) Aneurysm, cerebral, nonruptured: (5) Carotid stenosis, bilateral: Plan this patient has suffered a small, linear right periventricular acute stroke January 19 resulting in some mild left-sided ba paresis (mostly distal weakness/clumsiness). This is most likely small vessel ischemic in nature. The patient has considerable old diffuse small vessel ischemic disease noted on MRI . He has 90% stenosis at the origin of the left internal carotid artery and 50% on the right internal carotid artery. Vertebral is stenotic as well. Finally, his a 4 mm (incidental ) SHAUN aneurysm The etiology of his cerebral vascular disease is likely secondary to hypertensive small vessel ischemic disease. He does have a history of dysli pidemia which is controlled on simvastatin and he has a remote history of cigarette smoking. Recommendations: 1. given the extent of his small-vessel ischemic disease and stenosis, I would initiate clopidogrel 75 mg daily along with aspirin 81 mg daily for 3 weeks, then switch to clopidogrel alone. 2. Awaiting echocardiogram results. 3. Control blood pressure as you are doing, aiming for a mean arterial pressure of 95-100. 4. His lipids are controlled on current dose of simvastatin. 5. his aneurysm is tiny and likely incidental. This could be followed up as an outpatient over time. I do not believe he needs a neurosurgeon for this. 6. although the left internal carotid artery stenosis is severe it was not responsible for the stroke. He could get a vascular surgery opinion as an outpatient. 7. Increase activity as able. Overall, I spent a total of 75 minutes with this case including review of records, review of MRI films, direct evaluation the patient at bedside, and di scussing the case with the patient and RN at bedside, and Dr. Lopez, including differential diagnosis and treatment options. History of Present Illness Reason for Consultation: Patient is a 76-year-old, who I was asked to see at the request of Dr. Lopez, for neurologic consultation regarding stroke. Requesting Physician: Dr. Lopez Attending Physician: Pradeep Lopez MD History of Present Illness this patient has a 25+ year history of hypertension. He is on lisinopril 20 mg daily. He also has a 20 year history of dyslipidemia on simvastatin 80 mg daily. he was a cigarette smoker since high school quitting about 40 years ago. 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 He noticed that his left leg was a little weak in that it was hard to knot picker cloth his foot particularly going up stairs. He really did not have any other symptoms and went to bed with these issues. He woke up the morning of January 20 had the weakness of the left hand and foot were still present. He had some tingling in the left upper extremity with some numbness but no vision issues, speech problems, or cognitive difficulties. He did not believe his face was weak and he was not drooling. He had no pain. He arrived to the emergency room on January 20 at 2:03 p.m. with a temperature 36.8, pulse 90 and regular, respiratory rate 20, blood pressure 151/101 but her remained elevated in the emergency room. Okay to saturation was 95%. On neurologic examination there was flattening of the left nasolabial fold and drift in the left arm and leg. His strength is graded as 4/5 in the left arm and leg. CBC, Chem profile, and urinalysis were largely unremarkable. Chest x-ray shows some cardiomegaly. CT scan of the head was unremarkable for acute changes. CT angiography of the head showed no significant vascular stenoses but there was a 4 mm SHAUN aneurysm present. CT angiography of the neck revealed a 90% stenosis at the origin of the left internal carotid artery with 50% stenosis proximally in the right internal carotid artery. There was stenosis in the right vertebral artery as well. MRI of the brain showed a small linear right acute stroke in the periventricular white matter. Additionally there was moderate old small vessel ischemic change and mild generalized atrophy. I reviewed these films with the patient. echocardiogram is pending This morning, he has no numbness or tingling in the left arm but still has the weakness and clumsiness as before. There is nothing new. CBC and Chem profile largely unremarkable. Total cholesterol is 146 and triglycerides 78. hemoglobin A1c is 5.7. Blood pressure remains elevated at 180 9/96. Allergies Allergy/AdvReac Type Severity Reaction Status Date / Time No Known Allergies Allergy Verified 07/05/21 08:49 Home Medications Medication Instructions Recorded Confirmed Type ibuprofen 600 mg tablet 600 mg PO Q8H PRN pain #10 tabs 05/27/20 01/20/22 Rx amoxicillin 500 mg tablet 2,000 mg PO UD PRN prior to dental 06/10/20 01/20/22 Rx procedures #16 tabs acetaminophen 500 mg tablet 1,000 mg PO Q6H PRN Pain 06/17/20 01/20/22 History (Tylenol Extra Strength) lisinopril 20 mg tablet See Rx Instructions .Route 09/26/21 01/20/22 Rx .COMPLEX #90 tabs simvastatin 80 mg tablet 80 mg PO .COMPLEX #90 tabs 11/25/21 01/20/22 Rx Patient History Medical History BPH (benign prostatic hyperplasia) Dry skin History of colon polyps Hypercholesterolemia Hyperglycemia Hyperlipidemia Hypertension Hypertension Seborrheic keratosis Surgical History History of colonoscopy History of esophagogastroduodenoscopy (EGD) with polyp removal History of wisdom tooth extraction Laryngeal polyp benign polypectomy in the late Family History Mother , age 86 of breast cancer Breast cancer Cancer Some urothilial cancer Father , age 57 of heart failure Heart disease Myocardial infarction Sister Multiple sclerosis Other No family history of adverse response to anesthesia Denies family history of Prostate cancer Coronary heart disease Colorectal cancer Social History Smoking Status: Former smoker Age Started Using Tobacco: 22; Age Quit Using Tobacco: 42; packs per day: 0.5; Second Hand Exposure: No; Hx Alcohol Use: Yes Alcohol type: beer and wine Alcohol Intake Frequency Comment: about 3-4 beers on Fridays and Saturdays. Hx Substance Use: No Preferred Language: [place] Communication Ability: Effective Hearing Ability: Normal General Farmer Required: No Beliefs That Will Affect Care: None marital status: Current Living Situation: Alone current occupational status: employed current occupation: [employer] Other Information That Helps Us Care for You: No Feels Safe at Home: No Is there a partner from a previous relationship who is making you feel unsafe now?: No Safety Concerns: Feels Safe At This Time Childhood Exposure to Second-Hand Smoke: Yes caffeine: Yes Dental Care, Regularly: Yes Physical Activity Frequency: 5-6 Times per Week Seatbelt Use: always Sunscreen Use: Yes Assistive Devices: Glasses Review of Systems Constitutional: no fever, no fatigue and no weakness Eyes: no diplopia, no eye pain and no worsening vision Ear, Nose, Mouth, Throat: no ear pain, no tinnitus, no hearing loss, no dizziness, no snoring, no hoarseness and no dysphagia Respiratory: no cough and no dyspnea Cardiovascular: no chest pain, no palpitations and no lightheadedness Gastrointestinal: no abdominal pain, no nausea and no vomiting Musculoskeletal: no back pain, no neck pain, no radicular pain, no joint pain and no myalgia Integumentary: no rash and no lesions Neurologic: + gait abnormality and + localized weakness; no generalized weakness, no tingling, no numbness, no tremor(s), no abnormal movements, no headache(s), no abnormal speech, no confusion and no memory loss Psychiatric: no depression, no irritability, no anxiety, no difficulty concentrating, no confusion and no hallucinations Endocrine: no fatigue and no flushing Hematologic / Lymphatic: no easy bleeding and no easy bruising Allergy / Immunological: no urticaria and no problem reported Exam (Neuro) Physical Exam: The patient is right-handed. The patient is awake, alert, and attentive. Speech is normal without any aphasia or dysarthria. The patient can name objects, repeat phrases, and has normal spontaneous speech. Mentation and thought processes are intact, with orientat ion to person, place and time, and normal fund of knowledge. Attention and concentration are normal. Mood and affect are normal and appropriate. General appearance and grooming are normal. Short and long-term memory are intact. Pupils are 4 mm bilaterally and reactive to light. Extraocular eye muscles are intact without nystagmus. Visual acuity and visual schneider seem normal grossly to confrontation. There are no deficits to sensation in the face in all 3 distributions of the fifth cranial nerve bilaterally. Corneal reflexes are positive bilaterally. Facial movement and strength seems normal diffusely although there is a slight droop /weakness of the corner of the mouth On the left. Hearing seems normal bilaterally. Palate moves well without asymmetry. There is normal sternocleidomastoid and trapezius (shoulder shrug) strength bilaterally. Tongue is midline with good strength bilaterally. Neck has a full range of motion without discomfort. There are no cervical bruits bilaterally. There are no cranial or ocular bruits. Heart is without murmur. There is a regular rhythm and rate. Cervical, thoracic, and lumbar spine are nontender to palpation. Gait is narrow based and cautious and he limps favoring the left leg. He is somewhat unstable because of the foot clumsiness. Stance is reasonable eyes open. With outstretched arms there is no drift. There are no resting, postural, or action tremors. There is no ataxia with finger to nose testing. There is Decreased facility in the left hand compared to the right which is normal. No other abnormal involuntary movements are noted. Motor strength is 5/5 diffusely in the right arm and leg both proximally distally diffusely. Strength is closer to 5/5 proximally in the left arm and leg but distally in the hand and foot strength is 4/5 and the left foot is clumsy. The limbs have good tone without rigidity or spasticity. There is no atrophy noted in the muscles. Muscle bulk is normal, there is no tenderness to pal pation, no myotonia to percussion, and no fasciculations seen. Sensory examination is intact to touch and pin throughout all 4 limbs diffusely. Vibratory and position sense testing is normal bilaterally as well. There is normal sensation to temperature. Reflexes are 2/4 in the biceps, triceps, brachioradialis, quadriceps, and Achilles tendons bilaterally. There is no clonus bilaterally. Toes are downgoing with plantar stimulation On the right and upgoing on plantar stimulation on the left. Peripheral pulses are present and of normal quality distally in all 4 limbs. There is no peripheral edema noted in the limbs. Results [facility] Data ([facility]) Vital Signs (Past 12 Hours) Vital Signs Temp Pulse Pulse Resp BP BP Pulse Ox 01/21/22 07:37 36.7 C 63 18 189/96 H 95 01/21/22 06:26 88 01/21/22 04:45 77 01/21/22 03:55 36.6 C 60 18 160/73 H 98 01/20/22 23:06 177/88 H O2 Del Method 01/21/22 07:37 Room Air 01/21/22 06:26 01/21/22 04:45 01/21/22 03:55 Room Air 01/20/22 23:06 PG Care Time/CCT Total # of Minutes Spent Total Time Spent with Patient: Total time spent is greater than 50% in coordination of care (as documented) at patient's floor/unit and/or counseling patient: Coding Level of Care Code 21919 Initial Inpt Care Lvl 3 Diagnoses Acute CVA (cerebrovascular accident) I63.9 Acute left hemiparesis G81.94 Hypertension I10 Aneurysm, cerebral, nonruptured I67.1 Carotid stenosis, bilateral I65.23 Time Spent (min) 75
--- NOTE | 2022-01-21 11:51 | Hospitalist Progress Note ---
Date of Service January 21, 2022 Assessment & Plan (1) Acute CVA (cerebrovascular accident): Plan: - 24 hours of left hand and left leg weakness with decreased prominence of left nasolabial fold, let facial droop. - Took full dose of aspirin before presenting to ED. Continue ASA 81mg PO daily - Add clopidogrel 75mg PO daily for 21 days - He is is out of the window for TNKase for mechanical thrombectomy. - Head CT without evidence of hemorrhage, ischemia, or mass. - Risk factors for stroke include age, hypertension, hyperlipidemia. - TTE without embolus - HbA1C 5.7 - at risk for diabetes, LDL 90 -> will switch simvastatin to atorvastatin 80mg - OT recommending rehab although patient wishes to go home - recommend staying overnight to see if hypertension is just stroke related and after allowing permissive HTN unknown if we need to increase his BP medications (2) Carotid stenosis, bilateral: Plan: Not consider contributory to current CVA but left sided stenosis will need vascular outpatient follow up on discharge ASA, clopidogrel + atorvastatin (3) Hypertension: Plan: - Patient takes lisinopril 20 mg daily, takes this in the morning, however this morning did not. - Continue his usual lisinopril dosing, will aim to slowly lower his BP and increase this tomorrow if still elevated (4) Hypercholesterolemia: Plan: - Switch to atorvastatin 80mg PO daily as above (5) Hyperglycemia: Plan: - Reported history of by PCP of intermittently elevated blood sugars. - HgbA1c 5.7 at risk of diabetes. Will consider metformin on discharge - BG 101 on admission--no need for Accucheks or SSI presently. (6) Aneurysm, cerebral, nonruptured: Plan: Incidental finding. Does not need neurosurg follow up per neurology Plan - continue admission to med/tele. - SCDs, Lovenox for VTE ppx. - Full Code. Admission and Anticipated Discharge Date Admission Date: January 21, 2022 Subjective Patient reports improvement in his weakness in leg and hand. Still having some clumsiness. Discussed with Dr Vanessa and adding clopidogrel. Review of Systems Review of Systems: All systems reviewed & are unremarkable except as noted in Subjective Physical Exam Constitutional: WD/WN, vitals as above Eyes: PERRL, conjunctivae normal, anicteric sclerae ENMT: external ear and nose normal, oropharynx normal Neck: trachea midline, no thyromegaly Respiratory: normal respiratory effort, lungs clear to auscultation Cardiovascular: RRR, no murmur, no edema Gastrointestinal (Abdomen): normal bowel sounds, soft, nontender, no hepatosplenomegaly Skin: no rashes, warm and dry Neurologic: moves all extremities, + focal motor deficit (left hip flexion 4+, left maintenance associate strength 4+) and awake; not confused Speech / Cognition: normal speech Motor/Sensory: + pronator drift (left); no sensory deficit Psychiatric: A+Ox3, euthymic affect Results & Data Results & Data ([facility]) Vital Signs (Past 12 Hours) Vital Signs Temp Pulse Pulse Resp BP BP Pulse Ox 01/21/22 11:39 83 17 169/97 H 96 01/21/22 07:37 36.7 C 63 18 189/96 H 95 01/21/22 06:26 88 01/21/22 04:45 77 01/21/22 03:55 36.6 C 60 18 160/73 H 98 O2 Del Method 01/21/22 11:39 Room Air 01/21/22 07:37 Room Air 01/21/22 06:26 01/21/22 04:45 01/21/22 03:55 Room Air PG Care Time/CCT Total # of Minutes Spent Total Time Spent with Patient: Total time spent is greater than 50% in coordination of care (as documented) at patient's floor/unit and/or counseling patient: Coding Level of Care Code 11789 Subseq Hosp Care Lvl 2 Diagnoses Acute CVA (cerebrovascular accident) I63.9 Carotid stenosis, bilateral I65.23 Hypertension I10 Hypercholesterolemia E78.00 Hyperglycemia R73.9 Aneurysm, cerebral, nonruptured I67.1
[2022-01-21] MEDS ORDERED: GLUCAGON FOR INJ 1 MG VIAL SQ PRN (11:54)
[2022-01-21] MEDS ORDERED: GLUCOSE 10 TAB/TUBE PO PRN (11:54)
[2022-01-21] MEDS ORDERED: DEXTROSE 50% 50 ML SYRINGE IV PRN (11:54)
[2022-01-21] MEDS ORDERED: CARBOHYDRATES FOR HYPOGLYCEMIA PO PRN (11:54)
[2022-01-21] MEDS ORDERED: GLUCOSE 40% GEL 15 GM TUBE PO PRN (11:54)
[2022-01-21] MEDS: CLOPIDOGREL BISULFATE 75 MG TAB PO SCH (12:49)
--- NOTE | 2022-01-21 12:49 | XCELERA ---
[id number]
[2022-01-21] MEDS: ATORVASTATIN 40 MG TAB PO SCH (19:46)
[2022-01-21] MEDS ORDERED: CALCIUM CARBONATE 500 MG CHEWABLE TAB PO PRN (20:47)
[2022-01-22 07:04] LABS: Basophils # (auto) 0.03 K/uL (0-0.2); Basophils % (auto) 0.4 %; Eosinophils # (auto) 0.08 K/uL (0-0.50); Eosinophils % (auto) 1.1 %; Hematocrit (blood only) 46.6 % (40.1-51.0); Hemoglobin 15.9 g/dl (14.0-18.0); Immature Granulocytes # (auto) 0.02 K/uL (0.00-0.02); Immature Granulocytes % (auto) 0.3 %; Lymphocytes # (auto) 1.29 K/uL (1.2-3.4); Mean Corpuscular Hemoglobin 31.8 pg (25.0-34.0); Mean Corpuscular Hgb Conc 34.1 g/dL (32.0-36.0); Mean Corpuscular Volume 93.2 fL (80.0-100.0); Mean Platelet Volume 12.1 fL (9.4-12.4); Monocytes # (auto) 0.55 K/uL (0.24-0.82); Monocytes % (auto) 7.3 %; Neutrophils # (auto) 5.61 K/uL (1.4-6.5); Neutrophils % (auto) 73.9 %; Platelet Count 125 K/uL (130-400); RDW Coefficient of Variation 12.3 % (11.5-14.5); RDW Standard Deviation 42.4 fL (36.4-46.3); White Blood Count 7.58 K/ul (4.8-10.8)
[2022-01-22 07:25] LABS: BUN Creatinine Ratio 27.2 (10-20); Calcium 9.8 mg/dl (8.5-10.1); Est GFR (African American) 101.5 ml/min; Est GFR (Non-African American) 87.6 ml/min
[2022-01-22] MEDS: ENOXAPARIN INJ 40 MG/0.4 ML SYR SQ SCH (08:29)
[2022-01-22] MEDS: ASPIRIN 81 MG ECTAB PO SCH (08:30)
[2022-01-22] MEDS: CLOPIDOGREL BISULFATE 75 MG TAB PO SCH (08:30)
[2022-01-22] MEDS: lisinopril 20 MG TAB PO SCH ×2 (10:33→19:47)
--- NOTE | 2022-01-22 12:13 | Hospitalist Progress Note ---
Date of Service January 22, 2022 Assessment & Plan (1) Acute CVA (cerebrovascular accident): Plan: - 24 hours of left hand and left leg weakness with decreased prominence of left nasolabial fold, let facial droop. - Took full dose of aspirin before presenting to ED. Continue ASA 81mg PO daily - Add clopidogrel 75mg PO daily for 21 days - He is is out of the window for TNKase for mechanical thrombectomy. - Head CT without evidence of hemorrhage, ischemia, or mass. - Risk factors for stroke include age, hypertension, hyperlipidemia. - TTE without embolus - HbA1C 5.7 - at risk for diabetes, LDL 90 -> will switch simvastatin to atorvastatin 80mg - Patient now wishing to go to inpatient rehab. (2) Carotid stenosis, bilateral: Plan: Not consider contributory to current CVA but left sided stenosis will need vascular outpatient follow up on discharge ASA, clopidogrel + atorvastatin (3) Hypertension: Plan: - Despite increase of lisinopril 20 mg twice daily he still remains significantly hypertensive with systolic blood pressure greater than 180. We will add amlodipine 5 mg p.o. daily (4) Hypercholesterolemia: Plan: - Switch to atorvastatin 80mg PO daily as above (5) Hyperglycemia: Plan: - Reported history of by PCP of intermittently elevated blood sugars. - HgbA1c 5.7 at risk of diabetes. Will consider metformin on discharge - BG 101 on admission--no need for Accucheks or SSI presently. (6) Aneurysm, cerebral, nonruptured: Plan: Incidental finding. Does not need neurosurg follow up per neurology Plan - continue admission to med/tele. Likely will be medically stable for discharge tomorrow. - SCDs, Lovenox for VTE ppx. - Full Code. Admission and Anticipated Discharge Date Admission Date: January 21, 2022 Subjective Patient reports not wanting to go to acute inpatient rehab. Significant improvement in his left leg weakness. However his left applications coordinator strength and pronator drift is still significant present. Still remains hypertensive. Review of Systems Review of Systems: All systems reviewed & are unremarkable except as noted in Subjective Physical Exam Constitutional: WD/WN, vitals as above ENMT: external ear and nose normal, oropharynx normal Neck: trachea midline, no thyromegaly Respiratory: normal respiratory effort, lungs clear to auscultation Cardiovascular: RRR, no murmur, no edema Gastrointestinal (Abdomen): normal bowel sounds, soft, nontender, no hepatosplenomegaly Skin: no rashes, warm and dry Neurologic: moves all extremities, + focal motor deficit (left hip flexion 4+, left applications coordinator strength 4) and awake; not confused Speech / Cognition: normal speech Motor/Sensory: + pronator drift (left); no sensory deficit Psychiatric: A+Ox3, euthymic affect Results & Data Results & Data ([facility]) Vital Signs (Past 12 Hours) Vital Signs Temp Pulse Pulse Resp BP BP Pulse Ox 01/22/22 11:55 178/96 H 01/22/22 11:46 37.1 C 93 H 18 205/106 H 97 01/22/22 07:25 61 01/22/22 06:57 36.5 C 66 18 175/85 H 95 01/22/22 03:42 36.7 C 66 18 137/60 97 O2 Del Method 01/22/22 11:55 01/22/22 11:46 Room Air 01/22/22 07:25 01/22/22 06:57 Room Air 01/22/22 03:42 Room Air PG Care Time/CCT Total # of Minutes Spent Total Time Spent with Patient: Total time spent is greater than 50% in coordination of care (as documented) at patient's floor/unit and/or counseling patient: Coding Level of Care Code 54868 Subseq Hosp Care Lvl 2 Diagnoses Acute CVA (cerebrovascular accident) I63.9 Carotid stenosis, bilateral I65.23 Hypertension I10 Hypercholesterolemia E78.00 Hyperglycemia R73.9 Aneurysm, cerebral, nonruptured I67.1
[2022-01-22] MEDS: amLODIPine BESYLATE 5 MG TAB PO SCH (19:46)
[2022-01-22] MEDS: ATORVASTATIN 40 MG TAB PO SCH (19:48)
[2022-01-23] MEDS: DOCUSATE SODIUM 100 MG CAP PO PRN (06:24)
[2022-01-23 06:36] LABS: Basophils # (auto) 0.04 K/uL (0-0.2); Basophils % (auto) 0.5 %; Eosinophils # (auto) 0.08 K/uL (0-0.50); Hematocrit (blood only) 46.8 % (40.1-51.0); Hemoglobin 16.3 g/dl (14.0-18.0); Immature Granulocytes # (auto) 0.03 K/uL (0.00-0.02); Immature Granulocytes % (auto) 0.4 %; Lymphocytes # (auto) 1.26 K/uL (1.2-3.4); Lymphocytes % (auto) 15.3 %; Mean Corpuscular Hemoglobin 32.1 pg (25.0-34.0); Mean Corpuscular Hgb Conc 34.8 g/dL (32.0-36.0); Mean Corpuscular Volume 92.1 fL (80.0-100.0); Mean Platelet Volume 12.1 fL (9.4-12.4); Monocytes # (auto) 0.58 K/uL (0.24-0.82); Neutrophils # (auto) 6.25 K/uL (1.4-6.5); Neutrophils % (auto) 75.8 %; Platelet Count 141 K/uL (130-400); RDW Coefficient of Variation 12.2 % (11.5-14.5); RDW Standard Deviation 41.4 fL (36.4-46.3); Red Blood Count 5.08 M/uL (4.63-6.08); White Blood Count 8.24 K/ul (4.8-10.8)
[2022-01-23 06:55] LABS: BUN Creatinine Ratio 35.1 (10-20); Calcium 9.8 mg/dl (8.5-10.1); Creatinine Clr Calc Pharmacy 101.8 ml/min; Est GFR (African American) 105.3 ml/min; Est GFR (Non-African American) 90.9 ml/min; Potassium 3.7 mmol/L (3.5-5.1)
[2022-01-23] MEDS: ENOXAPARIN INJ 40 MG/0.4 ML SYR SQ SCH (07:41)
[2022-01-23] MEDS: lisinopril 20 MG TAB PO SCH ×2 (07:41→19:57)
[2022-01-23] MEDS: ASPIRIN 81 MG ECTAB PO SCH (07:41)
[2022-01-23] MEDS: CLOPIDOGREL BISULFATE 75 MG TAB PO SCH (07:41)
--- NOTE | 2022-01-23 12:17 | Neurology Progress Note ---
Date of Service January 23, 2022 Assessment & Plan (1) Acute CVA (cerebrovascular accident): (2) Acute left hemiparesis: (3) Hypertension: (4) Aneurysm, cerebral, nonruptured: (5) Carotid stenosis, bilateral: Plan This patient has suffered a small, linear, right periventricular acute stroke January 19, resulting in some mild left-sided ba paresis (mostly distal weakness/clumsiness). This is most likely small vessel ischemic in nature. The patient has considerable old diffuse small vessel ischemic disease noted on MRI . He has 90% stenosis at the origin of the left internal carotid artery and 50% on the right internal carotid artery. Vertebral is stenotic as well. Finally, his a 4 mm (incidental ) SHAUN aneurysm The etiology of his cerebral vascular disease is likely secondary to hypertensive small vessel ischemic disease. He does have a history of dyslipide sagar which is controlled on simvastatin and he has a remote history of cigarette smoking. Recommendations: 1. Continue clopidogrel 75 mg daily along with aspirin 81 mg daily for 3 weeks total, then switch to clopidogrel alone. 2. Control blood pressure as you are doing, aiming for a mean arterial pressure of 95-100. 3. His lipids are controlled on current dose of simvastatin. 4. The SHAUN aneurysm is tiny and likely incidental. This could be followed up as an outpatient. I do not believe he needs a neurosurgeon for this at this time. 5. Although the left internal carotid artery stenosis is severe, it was not responsible for the stroke. He could get a vascular surgery opinion as an outpatient. 7. Increase activity as able. he still has significant weakness and I believe he would benefit from a rehabilitation hospital stay. Otherwise continue physical and occupational therapy Overall, I spent a total of 40 minutes with this case including review of records, direct evaluation the patient at bedside, and discussion of the case with the patient and RN at bedside, including differential diagnosis and treatment options. Admission and Anticipated Discharge Date Admission Date: January 21, 2022 Subjective patient feels that his left arm may be slightly weaker than it was before. His left leg is doing better. He is speaking and swallowing without difficulty. He has no pain or headache. Blood pressure is 152/84 this morning. Previously was 163/85. CBC and Chem profile were unremarkable today. Echocardiogram showed no significant abnormalities. Nursing reports no new issues. Results & Data ([facility]) Vital Signs (Past 12 Hours) Vital Signs Temp Pulse Pulse Resp BP Pulse Ox O2 Del Method 01/23/22 12:03 36.8 C 73 18 152/84 H 96 Room Air 01/23/22 08:25 83 01/23/22 07:43 36.7 C 87 18 163/85 H 95 Room Air 01/23/22 03:43 36.8 C 79 18 148/91 H 97 Room Air Exam (Neuro) Physical Exam: He is awake and alert. Speech is without aphasia or dysarthria. Mood and affect seem normal appropriate. Thought processes are intact with good long and short-term memory. extraocular muscles are intact without nystagmus. He has no facial droop on the left. His strength and symmetry are normal. Tongue is midline. Coordination is normal in the right upper extremity and he has a drift on the left arm with decreased facility in the hand. Strength is 4/5 diffusely in the left arm and seems close to 5/5 diffusely in the left lower extremity. His foot is improved compared to 2 days ago. He needs a walker to help support his gait. their no abnormal involuntary movements. PG Care Time/CCT Total # of Minutes Spent Total Time Spent with Patient: Total time spent is greater than 50% in coordination of care (as documented) at patient's floor/unit and/or counseling patient: Coding Level of Care Code 48029 Subseq Hosp Care Lvl 3 Diagnoses Acute CVA (cerebrovascular accident) I63.9 Acute left hemiparesis G81.94 Hypertension I10 Aneurysm, cerebral, nonruptured I67.1 Carotid stenosis, bilateral I65.23 Time Spent (min) 40
--- NOTE | 2022-01-23 13:22 | Hospitalist Progress Note ---
Date of Service January 23, 2022 Assessment & Plan (1) Acute CVA (cerebrovascular accident): Plan: - 24 hours of left hand and left leg weakness with decreased prominence of left nasolabial fold, let facial droop. - Took full dose of aspirin before presenting to ED. Continue ASA 81mg PO daily - Added clopidogrel 75mg PO daily for 21 days - He is is out of the window for TNKase for mechanical thrombectomy. - Head CT without evidence of hemorrhage, ischemia, or mass. - Risk factors for stroke include age, hypertension, hyperlipidemia. - TTE without embolus - HbA1C 5.7 - at risk for diabetes, LDL 90 -> will switch simvastatin to atorvastatin 80mg - Patient now wishing to go to inpatient rehab. He is medically stable pending rehab placement at this time. Suspect his increased weakness is combination of evolving infarct and tiredness from PT exercises. (2) Carotid stenosis, bilateral: Plan: Not consider contributory to current CVA but left sided stenosis will need vascular outpatient follow up on discharge ASA, clopidogrel + atorvastatin (3) Hypertension: Plan: - Appears improved with MAP aim 95-100 er neurology with increased dose of lisinopril 20mg PO BID and addition of amlodipine 5mg PO daily (4) Hypercholesterolemia: Plan: - Switch to atorvastatin 80mg PO daily as above (5) Hyperglycemia: Plan: - Reported history of by PCP of intermittently elevated blood sugars. - HgbA1c 5.7 at risk of diabetes. Will consider metformin on discharge - BG 101 on admission--no need for Accucheks or SSI presently. (6) Aneurysm, cerebral, nonruptured: Plan: Incidental finding. Does not need neurosurg follow up per neurology Plan - continue admission to med/tele. Medically stable for discharge pending placement at this time. - SCDs, Lovenox for VTE ppx. - Full Code. Admission and Anticipated Discharge Date Admission Date: January 21, 2022 Subjective Left hand and arm he feels are weaker today. BP appears improved and more at goal after introduction of amlodipine. He has been walking around the wards without significant foot drop but also hasn't tried stairs yet. Review of Systems Review of Systems: All systems reviewed & are unremarkable except as noted in Subjective Physical Exam Constitutional: WD/WN, vitals as above Respiratory: normal respiratory effort, lungs clear to auscultation Cardiovascular: RRR, no murmur, no edema Gastrointestinal (Abdomen): normal bowel sounds, soft, nontender, no hepatosplenomegaly Skin: no rashes, warm and dry Neurologic: moves all extremities, + focal motor deficit (left hip flexion 4+, left carboy filler strength 4) and awake; not confused Speech / Cognition: normal speech Motor/Sensory: + pronator drift (left, more pronounced than yesterday); no sensory deficit Psychiatric: A+Ox3, euthymic affect Results & Data Results & Data ([facility]) Vital Signs (Past 12 Hours) Vital Signs Temp Pulse Pulse Resp BP Pulse Ox O2 Del Method 01/23/22 12:03 36.8 C 73 18 152/84 H 96 Room Air 01/23/22 08:25 83 01/23/22 07:43 36.7 C 87 18 163/85 H 95 Room Air 01/23/22 03:43 36.8 C 79 18 148/91 H 97 Room Air PG Care Time/CCT Total # of Minutes Spent Total Time Spent with Patient: Total time spent is greater than 50% in coordination of care (as documented) at patient's floor/unit and/or counseling patient: Coding Level of Care Code 06848 Subseq Hosp Care Lvl 2 Diagnoses Acute CVA (cerebrovascular accident) I63.9 Carotid stenosis, bilateral I65.23 Hypertension I10 Hypercholesterolemia E78.00 Hyperglycemia R73.9 Aneurysm, cerebral, nonruptured I67.1
[2022-01-23] MEDS: ATORVASTATIN 40 MG TAB PO SCH (19:58)
[2022-01-23] MEDS: amLODIPine BESYLATE 5 MG TAB PO SCH (19:58)
[2022-01-24] MEDS: DOCUSATE SODIUM 100 MG CAP PO PRN (05:34)
[2022-01-24] MEDS: ENOXAPARIN INJ 40 MG/0.4 ML SYR SQ SCH (09:07)
[2022-01-24] MEDS: CLOPIDOGREL BISULFATE 75 MG TAB PO SCH (09:07)
[2022-01-24] MEDS: lisinopril 20 MG TAB PO SCH (09:07)
[2022-01-24] MEDS: ASPIRIN 81 MG ECTAB PO SCH (09:07)
--- NOTE | 2022-01-24 11:42 | Hospitalist Progress Note ---
Date of Service January 24, 2022 Assessment & Plan (1) Acute CVA (cerebrovascular accident): Plan: - 24 hours of left hand and left leg weakness with decreased prominence of left nasolabial fold, let facial droop. - Took full dose of aspirin before presenting to ED. Continue ASA 81mg PO daily - Added clopidogrel 75mg PO daily for 21 days - He is is out of the window for TNKase for mechanical thrombectomy. - Head CT without evidence of hemorrhage, ischemia, or mass. - Risk factors for stroke include age, hypertension, hyperlipidemia. - TTE without embolus - HbA1C 5.7 - at risk for diabetes, LDL 90 -> will switch simvastatin to atorvastatin 80mg - Patient now wishing to go to inpatient rehab. He is medically stable pending rehab placement at this time. Suspect his increased weakness is combination of evolving infarct and tiredness from PT exercises. (2) Carotid stenosis, bilateral: Plan: Not consider contributory to current CVA but left sided stenosis will need vascular outpatient follow up on discharge ASA, clopidogrel + atorvastatin (3) Hypertension: Plan: - Appears improved with MAP aim 95-100 er neurology with increased dose of lisinopril 20mg PO BID and addition of amlodipine 5mg PO daily (4) Hypercholesterolemia: Plan: - Switch to atorvastatin 80mg PO daily as above (5) Hyperglycemia: Plan: - Reported history of by PCP of intermittently elevated blood sugars. - HgbA1c 5.7 at risk of diabetes. Will consider metformin on discharge - BG 101 on admission--no need for Accucheks or SSI presently. (6) Aneurysm, cerebral, nonruptured: Plan: Incidental finding. Does not need neurosurg follow up per neurology Plan - continue admission to med/tele. Medically stable for discharge pending placement at this time. - SCDs, Lovenox for VTE ppx. - Full Code. Admission and Anticipated Discharge Date Admission Date: January 21, 2022 Subjective He feels his left hand is slightly improved from yesterday but still significantly weak. No problems noticed walking but is yet to try stairs. Review of Systems Review of Systems: All systems reviewed & are unremarkable except as noted in Subjective Physical Exam Constitutional: WD/WN, vitals as above Eyes: PERRL, conjunctivae normal, anicteric sclerae ENMT: external ear and nose normal, oropharynx normal Neck: trachea midline, no thyromegaly Respiratory: normal respiratory effort, lungs clear to auscultation Cardiovascular: RRR, no murmur, no edema Gastrointestinal (Abdomen): normal bowel sounds, soft, nontender, no hepatosplenomegaly Skin: no rashes, warm and dry Neurologic: moves all extremities, + focal motor deficit (left hip flexion 4+, left button bradder strength 4) and awake; not confused Speech / Cognition: normal speech Motor/Sensory: + pronator drift (left, more pronounced than yesterday); no sensory deficit Psychiatric: A+Ox3, euthymic affect Results & Data Results & Data ([facility]) Vital Signs (Past 12 Hours) Vital Signs Temp Pulse Pulse Resp BP Pulse Ox O2 Del Method 01/24/22 07:48 36.7 C 69 18 155/72 H 95 Room Air 01/24/22 07:22 65 01/24/22 02:51 36.7 C 81 20 171/93 H 96 Room Air PG Care Time/CCT Total # of Minutes Spent Total Time Spent with Patient: Total time spent is greater than 50% in coordination of care (as documented) at patient's floor/unit and/or counseling patient: Coding Diagnoses Acute CVA (cerebrovascular accident) I63.9 Carotid stenosis, bilateral I65.23 Hypertension I10 Hypercholesterolemia E78.00 Hyperglycemia R73.9 Aneurysm, cerebral, nonruptured I67.1
[2022-01-24] MEDS ORDERED: STROKE PATIENT DISCHARGE STA (12:29)
[2022-01-24] MEDS ORDERED: lisinopril 20 MG TAB PO STA (12:30)
[2022-01-25] MEDS ORDERED: lisinopril 40 MG TAB PO SCH (09:00)
--- NOTE | 2022-01-27 13:58 | Discharge Summary ---
Date of Service January 24, 2022 Admission HPI Per Admitting Provider Mr. Davis is a 76-year-old male with past medical history significant for hypertension and hyperlipidemia who presents today for evaluation of left-sided weakness since yesterday afternoon. At the end of workday, he was typing on his computer and noticed clumsiness with his left hand. Later on when he got up to walk, he also noticed that his left leg seemed to be dragging more. He chose to monitor to see if they would resolve by the morning, however when they did not he chose to present to the ED this afternoon for further evaluation. He did go to work today and was in several meetings and denies any difficulty with word finding or speech, he has had no falls has intact sensation, however feels like he is just a little off balance due to the left-sided weakness. He does thinks his symptoms have partially gotten better. In hindsight, he does think he had some difficulty buttoning his shirt yesterday morning due to left hand clumsiness. He said no visual changes or headache, nausea, or vomiting. Denies any chest pain or palpitations He has no history of strokes. He does take lisinopril in the morning and he reports compliance with these forget to take lisinopril this morning. BP is usually 130s/80s when he checks it at home, which he does often. Quit smoking 38 years ago, has occasional alcohol on the weekends. On presentation is hypertensive, otherwise vital signs within normal limits, he is hemodynamically stable. Labs unrevealing. Head CT is without evidence of hemorrhage, mass-effect, or for acute territorial ischemia. 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 neck CTA shows focal high- grade stenosis of the 90% narrowing at the takeoff of the left ICA, approximately 50% narrowing at the proximal right ICA, moderate to severe narrowing within the proximal right vertebral artery. He reports he did take a full dose of aspirin this afternoon before coming to the ED. Principal Diagnosis Right periventricular acute stroke Left carotid artery stenosis Discharge Exam He feels his left hand is slightly improved from yesterday but still signi ficantly weak. No problems noticed walking but is yet to try stairs. 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, otherwise 5/5 throughout) and awake; not confused Motor/Sensory: + pronator drift (left) Cranial Nerves: normal facial strength Coordination: + abnormal [id number] test (left) Psychiatric A+Ox3, euthymic affect Discharge Data Allergies Allergy/AdvReac Type Severity Reaction Status Date / Time No Known Allergies Allergy Verified 07/05/21 08:49 Consultations 01/20/22 17:14 ED Decision to Admit Stat 01/20/22 21:15 Consult Neurology Routine Ordered Studies 01/20/22 14:08 CT head/brain wo con Stat IMPRESSION: There is no hemorrhage, mass effect, or evidence of acute territorial ischemia by CT criteria. 01/20/22 17:07 MRI Brain [MR brain wo con] Routine IMPRESSION: There is an acute infarct in the right supraventricular white matter without evidence of hemorrhagic transformation. 01/20/22 17:12 CTA head w con [CT angio head w con] Stat IMPRESSION: 1. No occlusion is seen. 2. 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 3. Additional findings as above. CTA neck with con [CT angio neck with con] Stat IMPRESSION: 1. Focal high-grade stenosis of up to 90% narrowing at the takeoff of the left internal carotid artery. 2. There is approximately 50% narrowing at the proximal right internal carotid artery. 3. Moderate to severe narrowing within the proximal right vertebral artery. Hospital Course (1) Acute CVA (cerebrovascular accident): Yakov Davis is a 76 year old male admitted to [facility] from January 20 - 2021 due to left sided weakness. He was diagnosed with a right periventricular acute stroke. He arrived outside the time window for thrombolytics therefore this was treated with aspirin and clopidogrel alone. He should continue on both of these for 21 days then aspirin alone. His simvastatin was switched to atorvastatin to increase the intensity given significant plaque disease on CT angiogram. No atrial fibrillation was seen on telemetry. He should follow up with neurology in approximately 4 weeks on discharge. His blood pressure remained elevated after 48 hours therefore his lisinopril was increased to 40mg PO daily and he was subsequently started on amlodipine 5mg PO daily. Recommend BP is further controlled over the next week at [facility] to aim systolic blood pressure <= 130 diastolic blood pressure <=90. He was advised to follow up with his PCP for ongoing management on discharge from physical rehabilitation. CT neck angiogram showed an incidental severe left sided carotid artery stenosis. This is the opposite side to his stroke therefore just recommend outpatient follow up with vascular surgery in 2-4 weeks. His symptoms improved over the course of admission but he still has significant left hand and arm weakness and difficulty ambulating with his left leg weakness. Therefore he was discharged for further inpatient rehabilitation to [facility]. (2) Carotid stenosis, bilateral: (3) Hypertension: (4) Hypercholesterolemia: (5) Hyperglycemia: (6) Aneurysm, cerebral, nonruptured: Total Time Total Time Spent Total Time Spent (In Minutes): 40 Discharge Plan Discharge Items Patient Disposition: Transfer Inpatient Rehab Fac Reason For Visit: LEFT SIDE TINGLING AND LEG NUMB Discharge Diagnosis: Right periventricular acute stroke Left carotid artery stenosis Activity: Resume your previous activity Non-emergency contact: Neurologist Call non-emergency contact if: you have any medication questions and your symptoms worsen Follow-up/Referrals: Vadim Wang MD [Primary Care Provider] - Eduardo Vanessa MD [Physician] - (Follow up in 4 weeks for stroke) Dawood Mejia MD [Physician] - (Follow up in 2-4 weeks for severe carotid artery stenosis) Diet: Heart Healthy Addtl Attending Provider Instructions: You were admitted to [facility] from January 20 - 2021 due to left sided weakness. You were diagnosed with a right periventricular acute stroke. You were outside the time window for thrombolytics therefore this was treated with aspirin and clopidogrel alone. You should continue on both of these for 21 days then aspirin alone. Your simvastatin was switched to atorvastatin to increase the intensity given significant plaque disease. No atrial fibrillation was seen on telemetry. Please follow up with neurology in approximately 4 weeks on discharge. Your lisinopril was increased to 40mg PO daily and you were started on amlodipine 5mg PO daily to help with blood pressure control to decrease your risk of a further stroke. Recommend BP is further controlled over the next week at [facility] to aim systolic blood pressure <= 130 diastolic blood pressure <=90. Please continue to follow up with your primary care provider for blood pressure management. You were also noted to have severe left sided carotid artery stenosis. This did not cause your stroke but recommend following up with vascular surgery for this. The number for Dr Mejia is included above. Please call the office to arrange a follow up appointment in 2-4 weeks. Pending Studies at Discharge: No Stand-Alone Forms: Medications to Prevent Stroke, [facility] Skilled Items Patient informed of condition?: Yes DNR: No Discharge Level of Care: Acute rehab Communicable Disease: No Discharge Prognosis: Stable Lines: None Urinary Catheter: No Medications and DC Order Prescriptions: New clopidogrel 75 mg Tablet 75 mg PO QAM 17 Days Qty: 17 0RF lisinopril 40 mg tablet 40 mg PO DAILY Qty: 30 0RF amlodipine 5 mg tablet 5 mg PO HS Qty: 30 0RF aspirin 81 mg Tablet,Delayed Release (Dr/Ec) 81 mg PO QAM Qty: 30 0RF atorvastatin 80 mg tablet 80 mg PO HS Qty: 30 0RF Continued amoxicillin 500 mg tablet 2,000 mg PO UD PRN (Reason: prior to dental procedures) Qty: 16 2RF acetaminophen [Tylenol Extra Strength] 500 mg Tablet 1,000 mg PO Q6H PRN (Reason: Pain) Discontinued lisinopril 20 mg tablet See Rx Instructions .ROUTE .COMPLEX Qty: 90 3RF Dose Instruction: TAKE 1 TABLET BY MOUTH IN THE MORNING Rx Instructions: TAKE 1 TABLET BY MOUTH IN THE MORNING simvastatin 80 mg tablet 80 mg PO .COMPLEX Qty: 90 1RF Rx Instructions: 80 mg PO at bedtime; 1 tablet every night ibuprofen 600 mg tablet 600 mg PO Q8H PRN (Reason: pain) Qty: 10 0RF Rx Instructions: 1 tablet with food every 8 hours x 2-3 days as needed Discharge Orders: Discharge Order (Routine); Ordered 01/24/22 Ordered By: Pradeep Hartman/Other Patient Handouts: Discharge Instructions for Stroke Admission Data Admit Date/Time: 01/21/22 09:05 Attending Provider: Pradeep Lopez Admit Provider: Pradeep Lopez Primary Care Provider: Vadim Wang Other Providers: Pradeep Lopez ; [facility] ; Eduardo Vanessa Coding Level of Care Code D/C DAY MANAGEMENT >30 MINS Diagnoses Acute CVA (cerebrovascular accident) I63.9 Carotid stenosis, bilateral I65.23 Hypertension I10 Hypercholesterolemia E78.00 Hyperglycemia R73.9 Aneurysm, cerebral, nonruptured I67.1
== END 2022-01-24 14:30 | DRG 65 ==
LOC: ED 13:55 → EDINP 13:55 → 2N 21:17

== ENCOUNTER 2023-10-25 00:20 | Inpatient (IN) ==
[2023-10-25] MEDS: SODIUM CHLORIDE 0.9% 1,000 ML IV ONE ×2 (00:35→01:12)
--- NOTE | 2023-10-25 00:36 | Emergency Department Note ---
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 Patient reports he had an appointment with his PCP today which he changed for tomorrow. He reports he figured he was having a flare of musculoskeletal pain which tends to happen when he is sick. He reports he went to go to the bathroom today and got up from bed and felt lightheaded where he fell but did not completely lose consciousness but landed with his sternum on the edge of his nightstand. Reports he was able to eventually set himself back up using the better support. He denies any head strike. He denies any cough, congestion, nausea, vomiting, diarrhea patient has any blood in his urine or burning with urination. Patient reports he did have a tick that he found on his body 2 weeks ago that was present for no more than a day. On evaluation the patient is fatigued appearing but no distress, afebrile with heart in the 100s and atrial fibrillation with blood pressure 90s-100s/60s-90s. He appears clinically dry. He has no focal neurologic deficits. He has a minor skin tear to the dorsum of the left forearm without gross deformity or hematoma. EKG demonstrates atrial fibrillation which appears to be new and otherwise no overt ST elevation or depression. WBC within normal limits. H/H similar to prior. Platelets low at 70 K. VBG with pH of 7.3 with component of respiratory compensation with pCO2 of 30. Chemistry demonstrates increased anion gap metabolic acidosis with anion gap of 16 and bicarbonate of 17. Creatinine is acutely elevated at 6.4 with BUN of 118. Lactic acid 1.2, within normal limits. Total liver 1.6, AST 68 and ALT 87, nonspecific but in setting of the patient's thrombocytopenia raises suspicion for tickborne illness such as anaplasmosis. Lipase is not elevated. Procalcitonin is elevated 8.4. TSH within normal limits. CT of the head, C-spine, chest and pelvis were performed. CT of the head and C- spine negative for acute abnormalities. CT of the chest demonstrates fracture involving the lower aspect of the sternum with mild separation through the fracture line with mild retrosternal swelling/hematoma. CT of the abdomen pelvis demonstrates mild bilateral perinephric stranding is nonspecific. Description of tiny calcifications on the posterior right bladder wall suggestive of previously passed small calculi. Given thrombocytopenia with transaminitis and elevated procalcitonin testing for tickborne illness was ordered and peripheral smear for anaplasmosis was positive. Patient had been ordered empiric cefepime as well as doxycycline. The patient was treated with 30+cc/kg of IV fluid with normal saline and LR and was subsequently fluid responsive. Levophed was ordered to the bedside, but did not require initiation current patient was updated and agrees with plan for admission for further management. Zazueta catheter was placed. UA subsequently with 2+ bacteria though with epithelial cells present and negative nitrites. Case was discussed with Dr. De León [facility] hospitalist, who will evaluate the patient for admission. Further management per admitting team. Triage Nursing notes reviewed and agree them. Prior/external medical records reviewed Vital Signs: reviewed Differential diagnosis: Vasovagal event, dehydration, infection, hypoglycemia, electrolyte abnormalities, cardiac sources, intracerebral event, pulmonary embolism, seizure, toxicologic, neurologic, as well as other pathologies. ER treatment provided: See below. Diagnostics interpreted by me: ECG: Atrial fibrillation with RVR, 102 bpm, PVCs, nonspecific T wave abnormality, no overt ST elevation or depression. QTc 463, QRS 120. Cardiac Monitoring: An order for continuous cardiac monitoring was placed and demonstrated Atrial fibrillation with RVR, 102 bpm, PVCs. Laboratory studies: See below Imaging studies: See below Consultation(s): JIM [place] hospitalist. 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 Patient reports he had an appointment with his PCP today which he changed for tomorrow. He reports he figured he was having a flare of musculoskeletal pain which tends to happen when he is sick. He reports he went to go to the bathroom today and got up from bed and felt lightheaded where he fell but did not completely lose consciousness but landed with his sternum on the edge of his nightstand. Reports he was able to eventually set himself back up using the better support. He denies any head strike. He denies any cough, congestion, nausea, vomiting, diarrhea patient has any blood in his urine or burning with urination. Patient reports he did have a tick that he found on his body 2 weeks ago that was present for no more than a day. ROS: See above HPI for pertinent positives & negatives. A total of 10 systems reviewed and were otherwise negative. VITALS:See Below PHYSICAL EXAMINATION: GENERAL: Awake, alert, fatigued-appearing, in no distress HENT: Normocephalic, atraumatic. Oropharynx with dry mucous membranes and otherwise unremarkable. EYES: Normal conjunctiva. Sclera non-icteric. EOMI. No nystamgus. PEARRL. NECK: Supple. No nuchal rigidity. FROM. No JVD. RESPIRATORY: Clear to auscultation. CARDIAC: Tachycardic rate, irregular rhythm. Extremities warm and well perfused. Pulses equal. ABDOMEN: Soft, non-distended. No tenderness to palpation. No rebound or guarding. No masses. MUSCULOSKELETAL: Chest examination reveals no tenderness. The back is symmetrical on inspection without obvious abnormality. There is no CVA tenderness to palpation. No joint edema. LOWER EXTREMITIES: Calves are equal size bilaterally and non-tender. No edema. No discoloration. NEURO: Normal sensorium. No sensory or motor deficits noted. 5/5 strength in bilateral upper and right lower extremities. 4+/5 of left lower extremity. SKIN: No rash or jaundice noted. ED COURSE: Critical Care: I have personally spent greater than 45 minutes of critical care time in the direct management of this patient. This includes bedside care, interpretation of diagnostic studies, and testing, discussion with consultants, patient, and family members, and other required patient management activities. This 45 minutes is in excess of all separately billable procedures. 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 cerebrovascular accident History of CVA (cerebrovascular accident) January 2022 Carotid stenosis, bilateral Aneurysm, cerebral, nonruptured Hypercholesterolemia (Chronic) Hyperglycemia (Chronic) Hypertension (Chronic) History of colon polyps Mitral regurgitation Medical History Dry skin Seborrheic keratosis BPH (benign prostatic hyperplasia) Hypertension Hyperlipidemia Surgical History Laryngeal polyp benign polypectomy in the late History of colonoscopy History of esophagogastroduodenoscopy (EGD) with polyp removal History of wisdom tooth extraction Family History Mother , age 86 of breast cancer Breast cancer Cancer Some urothilial cancer Father , age 57 of heart failure Heart disease Myocardial infarction Sister Multiple sclerosis Other No family history of adverse response to anesthesia Denies family history of Prostate cancer Coronary heart disease Colorectal cancer Social History Smoking Status: Former smoker Age Started Using Tobacco: 22; Age Quit Using Tobacco: 42; packs per day: 0.5; Second Hand Exposure: No; Do You Dip or Chew Tobacco: No; Hx Alcohol Use: Yes Alcohol type: beer and wine Alcohol Intake Frequency Comment: about 3-4 beers on Fridays and Saturdays. 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 Feels Safe at Home: Yes Safety Concerns: Feels Safe At This Time Childhood Exposure to Second-Hand Smoke: Yes Diet: regular caffeine: Yes Dental Care, Regularly: Yes Physical Activity Frequency: 5-6 Times per Week Seatbelt Use: always Sunscreen Use: Yes Assistive Devices: Cane Allergies Allergies Allergy/AdvReac Type Severity Reaction Status Date / Time No Known Allergies Allergy Verified 10/25/23 01:10 Home Meds Home Medications Medication Instructions Recorded Confirmed acetaminophen 500 mg tablet 1,000 mg PO Q6H PRN Pain 06/17/20 10/25/23 (Tylenol Extra Strength) chlorthalidone 25 mg tablet 25 mg PO HS 10/25/23 10/25/23 ezetimibe 10 mg tablet (Zetia) 10 mg PO HS 10/25/23 10/25/23 rosuvastatin 40 mg tablet 40 mg PO HS 10/25/23 10/25/23 triamcinolone acetonide 0.025 % 1 applic topical BID PRN Skin 10/25/23 10/25/23 topical cream Irritation Previous Rx's Medication Instructions Recorded mecobalamin (vitamin B12) 1,000 1,000 mcg PO DAILY #30 tabs 06/09/22 mcg chewable tablet clopidogrel 75 mg tablet (Plavix) 75 mg PO DAILY #90 tabs 12/22/22 amoxicillin 500 mg tablet 2,000 mg (4 x 500 mg) PO UD PRN 05/09/23 prior to dental procedures #16 tabs amlodipine 10 mg tablet 10 mg PO DAILY #90 tabs 08/08/23 lisinopril 40 mg tablet 40 mg PO DAILY #90 tabs 09/05/23 Results & Data (ED) Vital Signs Vital Signs - 24 hr 10/25/23 00:26 10/25/23 00:28 10/25/23 00:45 Pulse Rate 103 H 98 H 86 Pulse Rate [Apical] Pulse Rate from SpO2 Sensor 90 Respiratory Rate 19 20 Respiratory Effort / Characteristics Non-Labored Respiratory Depth Normal Respiratory Pattern Regular Blood Pressure 109/93 104/59 L Blood Pressure [Right Arm] Blood Pressure Mean 98 61 Blood Pressure Mean [Right Arm] Pulse Oximetry 95 96 Oxygen Delivery Method Room Air Sepsis Recent Fever Within 48 Hours No Sepsis New/Unexplained Change in Mental Status N/A Sepsis Action Taken by Nursing No Action Required 10/25/23 00:53 10/25/23 00:53 10/25/23 00:53 Pulse Rate Pulse Rate [Apical] 95 H Pulse Rate from SpO2 Sensor Respiratory Rate 18 Respiratory Effort / Characteristics Non-Labored Spontaneous Respiratory Depth Normal Respiratory Pattern Regular Blood Pressure Blood Pressure [Right Arm] 104/59 L Blood Pressure Mean Blood Pressure Mean [Right Arm] 74 Pulse Oximetry 95 95 95 Oxygen Delivery Method Room Air Room Air Room Air Sepsis Recent Fever Within 48 Hours Sepsis New/Unexplained Change in Mental Status Sepsis Action Taken by Nursing 10/25/23 01:00 10/25/23 01:39 10/25/23 02:03 Pulse Rate 90 98 H 86 Pulse Rate [Apical] Pulse Rate from SpO2 Sensor 101 H 77 Respiratory Rate 20 24 22 Respiratory Effort / Characteristics Respiratory Depth Respiratory Pattern Blood Pressure 97/68 L 89/67 L Blood Pressure [Right Arm] Blood Pressure Mean 75 74 Blood Pressure Mean [Right Arm] Pulse Oximetry 96 97 95 Oxygen Delivery Method Sepsis Recent Fever Within 48 Hours Sepsis New/Unexplained Change in Mental Status Sepsis Action Taken by Nursing 10/25/23 02:30 10/25/23 03:00 10/25/23 03:15 Pulse Rate 92 H 95 H 93 H Pulse Rate [Apical] Pulse Rate from SpO2 Sensor 92 H 95 H 93 H Respiratory Rate 22 20 22 Respiratory Effort / Characteristics Respiratory Depth Respiratory Pattern Blood Pressure 89/67 L 107/58 L 112/60 Blood Pressure [Right Arm] Blood Pressure Mean 72 60 87 Blood Pressure Mean [Right Arm] Pulse Oximetry 95 96 95 Oxygen Delivery Method Sepsis Recent Fever Within 48 Hours Sepsis New/Unexplained Change in Mental Status Sepsis Action Taken by Nursing 10/25/23 03:30 10/25/23 03:45 10/25/23 04:03 Pulse Rate 92 H 100 H 104 H Pulse Rate [Apical] Pulse Rate from SpO2 Sensor 96 H 104 H Respiratory Rate 20 22 20 Respiratory Effort / Characteristics Respiratory Depth Respiratory Pattern Blood Pressure 108/53 L 96/54 L 97/63 L Blood Pressure [Right Arm] Blood Pressure Mean 71 75 74 Blood Pressure Mean [Right Arm] Pulse Oximetry 95 98 97 Oxygen Delivery Method Sepsis Recent Fever Within 48 Hours Sepsis New/Unexplained Change in Mental Status Sepsis Action Taken by Nursing Laboratory Data Attestation: I reviewed the patient's lab results. 10/25/23 07:21 10/25/23 07:21 Lab Results 10/25/23 10/25/23 10/25/23 Range/Units 00:37 02:43 02:49 WBC 8.04 (4.8-10.8) K/ul RBC 4.00 L (4.70-6.10) M/uL Hgb 12.5 L (14.0-18.0) g/dl Hct 35.1 L (42.0-52.0) % MCV 87.8 (80.0-100.0) fL MCH 31.3 (25.0-34.0) pg MCHC 35.6 (32.0-36.0) g/dL RDW Std Deviation 40.4 (36.4-46.3) fL RDW Coeff of Tam 12.5 (11.5-14.5) % Plt Count 70 L (130-400) K/uL MPV 14.4 H (9.4-12.4) fL Immature Gran % (Auto) 0.6 % Neut % (Auto) 78.7 % Lymph % (Auto) 15.4 % [place] % (Auto) 5.1 % Eos % (Auto) 0.0 % Baso % (Auto) 0.2 % Neut # (Auto) 6.32 (1.40-6.50) K/uL Lymph # (Auto) 1.24 (1.20-3.40) K/uL [place] # (Auto) 0.41 (0.11-0.59) K/uL Eos # (Auto) 0.00 (0.00-0.50) K/uL Baso # (Auto) 0.02 (0.00-0.20) K/uL Immature Gran # (Auto) 0.05 (0.01-0.20) K/uL Platelet Estimate Decreased L (Normal) Ovalocytes 1+ Echinocytes 3+ PT 11.3 (9.0-12.0) Seconds INR 1.0 (0.9-1.1) VBG pH 7.31 L (7.36-7.41) VBG pCO2 30 L (38-50) mmHg VBG pO2 35 mmHg VBG HCO3 15 mmol/L VBG O2 Saturation < 60.0 % VBG Base Excess -9.8 mEq/L Sodium 134 L (136-145) mmol/L Potassium 3.4 L (3.5-5.1) mmol/L Chloride 101 (98-107) mmol/L Carbon Dioxide 17 L (21-32) mmol/L Anion Gap 16 H (3-11) BUN 118 H (6-23) mg/dl Creatinine 6.47 H* (0.6-1.4) mg/dl Est Cr Clr Drug Dosing 17.6 ml/min Est GFR ( Amer) 8.8 ml/min Est GFR (Non-Af Amer) 7.6 ml/min BUN/Creatinine Ratio 18.2 (10-20) Glucose 164 H (70-99(Fasting)) mg/dl Lactate 1.2 (0.4-2.0) mmol/L Calcium 8.2 L (8.6-10.3) mg/dl Total Bilirubin 1.6 H (0.2-1.0) mg/dl AST 68 H (13-39) U/L ALT 87 H (7-52) U/L Alkaline Phosphatase 138 H (34-104) U/L Total Creatine Kinase 102 (30-223) U/L Troponin I High Sens 15.8 (0-20) pg/ml Total Protein 6.3 (6.0-8.3) gm/dl Albumin 3.4 (3.4-5.0) gm/dl Globulin 2.9 (2.5-4.0) gm/dl Albumin/Globulin Ratio 1.2 (0.9-2) Lipase 69 (11-82) U/L Procalcitonin 8.47 H (0-0.5) ng/ml TSH 1.216 (0.300-4.500) uIu/ml Urine Color Urine Appearance (Clear) Urine pH (4.5-7.5) Ur Specific [place] (1.000-1.030) Urine Protein (Negative) Urine Glucose (UA) (Negative) Urine Ketones (Negative) Urine Blood (Negative) Urine Nitrite (Negative) Urine Bilirubin (Negative) Urine Urobilinogen (Negative) Ur Leukocyte Esterase (Negative) Urine WBC (Auto) (0-5) /hpf Urine RBC (Auto) (0-2) /hpf U Hyaline Cast (Auto) (0-2) /lpf U Epithel Cells (Auto) (0-2) /hpf Urine Bacteria (Auto) (None Seen) Amorphous Sediment (None Prsent) Granular Casts (None Prsent) /lpf Ur Random Creatinine mg/dl Ur Random Sodium mmol/L Nasal Screen MRSA (PCR) (Negative) Adenovirus (PCR) Not Detected (NotDetected) Anaplasma Smear See Comment A Cancelled Babesia Smear See Comment Cancelled B. pertussis DNA (PCR) Not Detected (NotDetected) B.parapertussis DNA PCR Not Detected (NotDetected) Lyme Disease Screen Cancelled Negative C. pneumoniae DNA (PCR) Not Detected (NotDetected) Coronavirus OC43 (PCR) Not Detected (NotDetected) Coronavirus HKU1 (PCR) Not Detected (NotDetected) Coronavirus 229E (PCR) Not Detected (NotDetected) SARS-CoV-2 (PCR) Not Detected (NotDetected) Coronavirus NL63 (PCR) Not Detected (NotDetected) Human Metapneumovir PCR Not Detected (NotDetected) Influenza Type A (PCR) Not Detected (NotDetected) Influenza Type B (PCR) Not Detected (NotDetected) M. pneumoniae (PCR) Not Detected (NotDetected) Parainfluenza 1 (PCR) Not Detected (NotDetected) Parainfluenza 2 (PCR) Not Detected (NotDetected) Parainfluenza 3 (PCR) Not Detected (NotDetected) Parainfluenza 4 (PCR) Not Detected (NotDetected) RSV (PCR) Not Detected (NotDetected) Entero/Rhino (PCR) Not Detected (NotDetected) 10/25/23 10/25/23 Range/Units 03:17 03:45 WBC (4.8-10.8) K/ul RBC (4.70-6.10) M/uL Hgb (14.0-18.0) g/dl Hct (42.0-52.0) % MCV (80.0-100.0) fL MCH (25.0-34.0) pg MCHC (32.0-36.0) g/dL RDW Std Deviation (36.4-46.3) fL RDW Coeff of Tam (11.5-14.5) % Plt Count (130-400) K/uL MPV (9.4-12.4) fL Immature Gran % (Auto) % Neut % (Auto) % Lymph % (Auto) % [place] % (Auto) % Eos % (Auto) % Baso % (Auto) % Neut # (Auto) (1.40-6.50) K/uL Lymph # (Auto) (1.20-3.40) K/uL [place] # (Auto) (0.11-0.59) K/uL Eos # (Auto) (0.00-0.50) K/uL Baso # (Auto) (0.00-0.20) K/uL Immature Gran # (Auto) (0.01-0.20) K/uL Platelet Estimate (Normal) Ovalocytes Echinocytes PT (9.0-12.0) Seconds INR (0.9-1.1) VBG pH (7.36-7.41) VBG pCO2 (38-50) mmHg VBG pO2 mmHg VBG HCO3 mmol/L VBG O2 Saturation % VBG Base Excess mEq/L Sodium (136-145) mmol/L Potassium (3.5-5.1) mmol/L Chloride (98-107) mmol/L Carbon Dioxide (21-32) mmol/L Anion Gap (3-11) BUN (6-23) mg/dl Creatinine (0.6-1.4) mg/dl Est Cr Clr Drug Dosing ml/min Est GFR ( Amer) ml/min Est GFR (Non-Af Amer) ml/min BUN/Creatinine Ratio (10-20) Glucose (70-99(Fasting)) mg/dl Lactate (0.4-2.0) mmol/L Calcium (8.6-10.3) mg/dl Total Bilirubin (0.2-1.0) mg/dl AST (13-39) U/L ALT (7-52) U/L Alkaline Phosphatase (34-104) U/L Total Creatine Kinase (30-223) U/L Troponin I High Sens (0-20) pg/ml Total Protein (6.0-8.3) gm/dl Albumin (3.4-5.0) gm/dl Globulin (2.5-4.0) gm/dl Albumin/Globulin Ratio (0.9-2) Lipase (11-82) U/L Procalcitonin (0-0.5) ng/ml TSH (0.300-4.500) uIu/ml Urine Color Dark Yellow Urine Appearance Turbid A (Clear) Urine pH 5.0 (4.5-7.5) Ur Specific [place] 1.018 (1.000-1.030) Urine Protein 2+ H (Negative) Urine Glucose (UA) Negative (Negative) Urine Ketones Trace H (Negative) Urine Blood 2+ H (Negative) Urine Nitrite Negative (Negative) Urine Bilirubin 1+ H (Negative) Urine Urobilinogen Negative (Negative) Ur Leukocyte Esterase Trace H (Negative) Urine WBC (Auto) 0-5 (0-5) /hpf Urine RBC (Auto) 6-10 H (0-2) /hpf U Hyaline Cast (Auto) >20 H (0-2) /lpf U Epithel Cells (Auto) >20 H (0-2) /hpf Urine Bacteria (Auto) 2+ H (None Seen) Amorphous Sediment Present A (None Prsent) Granular Casts Present A (None Prsent) /lpf Ur Random Creatinine 149.6 mg/dl Ur Random Sodium 41 mmol/L Nasal Screen MRSA (PCR) Negative (Negative) Adenovirus (PCR) (NotDetected) Anaplasma Smear Babesia Smear B. pertussis DNA (PCR) (NotDetected) B.parapertussis DNA PCR (NotDetected) Lyme Disease Screen C. pneumoniae DNA (PCR) (NotDetected) Coronavirus OC43 (PCR) (NotDetected) Coronavirus HKU1 (PCR) (NotDetected) Coronavirus 229E (PCR) (NotDetected) SARS-CoV-2 (PCR) (NotDetected) Coronavirus NL63 (PCR) (NotDetected) Human Metapneumovir PCR (NotDetected) Influenza Type A (PCR) (NotDetected) Influenza Type B (PCR) (NotDetected) M. pneumoniae (PCR) (NotDetected) Parainfluenza 1 (PCR) (NotDetected) Parainfluenza 2 (PCR) (NotDetected) Parainfluenza 3 (PCR) (NotDetected) Parainfluenza 4 (PCR) (NotDetected) RSV (PCR) (NotDetected) Entero/Rhino (PCR) (NotDetected) Administered Medications Acetaminophen (Acetaminophen 325 Mg Tab) 650 mg PO Q4H PRN PRN Reason: Pain or Fever Stop: 11/24/23 04:05 Last Admin: 10/25/23 09:08 Dose: 650 mg Documented By: GRADY Hydromorphone HCl (Hydromorphone Inj 0.5 Mg/0.5 Ml Syr) 0.5 mg IV Q3H PRN PRN Reason: Pain (6,7,8,9,10) Stop: 11/08/23 07:13 Last Admin: 10/25/23 11:06 Dose: 0.5 mg Documented By: Admin: 10/25/23 07:35 Dose: 0.5 mg Documented By: TANIYA Lactated Ringer's (Lr) 1,000 mls @ 125 mls/hr IV .Q8H PATRICIO Stop: 10/25/23 20:59 Last Admin: 10/25/23 05:25 Dose: 125 mls/hr Documented By: VANESSA Discontinued Medications Sodium Chloride (Nss) 1,000 mls @ 999 mls/hr IV .Q1H1M ONE Stop: 10/25/23 01:26 Last Infusion: 10/25/23 01:47 Dose: Infused Documented By: Admin: 10/25/23 00:35 Dose: 999 mls/hr Documented By: VANESSA Sodium Chloride (Nss) 1,000 mls @ 999 mls/hr IV .Q1H1M ONE Stop: 10/25/23 01:51 Last Infusion: 10/25/23 01:12 Dose: Infused Documented By: Admin: 10/25/23 01:12 Dose: 999 mls/hr Documented By: SANJAY Acetaminophen (Ofirmev) 1,000 mg in 100 mls @ 400 mls/hr IV NOW STA Stop: 10/25/23 01:06 Last Infusion: 10/25/23 01:26 Dose: Infused Documented By: Admin: 10/25/23 01:12 Dose: 400 mls/hr Documented By: SANJAY Sodium Chloride (Nss) 500 mls @ 999 mls/hr IV .Q31M ONE Stop: 10/25/23 03:04 Last Infusion: 10/25/23 03:46 Dose: Infused Documented By: Admin: 10/25/23 02:51 Dose: 999 mls/hr Documented By: VANESSA Cefepime HCl (Maxipime) 2,000 mg in 20 mls @ 5 mls/min IV NOW STA; Protocol Stop: 10/25/23 02:37 Last Admin: 10/25/23 02:51 Dose: 5 mls/min Documented By: VANESSA Norepinephrine Bitartrate (Levophed/D5w) 4 mg in 250 mls @ 36.938 mls/hr IV .Q6H47M [facility]; Protocol Stop: 11/24/23 02:44 Last Admin: 10/25/23 04:29 Dose: Not Given Documented By: VANESSA Doxycycline Hyclate 100 mg/ (Dextrose) 100 mls @ 50 mls/hr IV NOW STA Stop: 10/25/23 04:39 Last Infusion: 10/25/23 04:39 Dose: Infused Documented By: Admin: 10/25/23 02:52 Dose: 50 mls/hr Documented By: VANESSA Lactated Ringer's (Lr) 500 mls @ 999 mls/hr IV .Q31M ONE Stop: 10/25/23 03:42 Last Infusion: 10/25/23 04:20 Dose: Infused Documented By: Admin: 10/25/23 03:44 Dose: 999 mls/hr Documented By: VANESSA Lidocaine (Lidocaine 5% 1 Patch) 1 patch TD NOW STA Stop: 10/25/23 04:32 Last Admin: 10/25/23 05:08 Dose: 1 patch Documented By: VANESSA Miscellaneous (Stat Iv Infusion Titration Per Protocol) 1 each N/A NOW STA Stop: 10/25/23 02:39 Last Admin: 10/25/23 04:29 Dose: Not Given Documented By: VANESSA Imaging Data Radiologist's Impression: Chest X-Ray 10/25/23 00:25 XR chest 1V portable HISTORY: syncope COMPARISON: Chest 01/20/2022. FINDINGS: No pneumothorax. The heart remains enlarged. No new focal lung consolidations to suggest a pneumonia. No evidence for pulmonary edema. No pleural effusions. IMPRESSION: Stable cardiomegaly. Otherwise, no acute process within the chest. ACT 112: Negative or not required by law. Electronically signed by: Seng Lezama M.D. 10/25/2023 7:[address] 10/25/23 00:51 Exam(s): CT C SPINE EXAM: CT Cervical Spine Without Intravenous Contrast CLINICAL HISTORY: Reason for exam: syncope/fall/pain. TECHNIQUE: Axial computed tomography images of the cervical spine without intravenous contrast. CTDI is 26.96 mGy and DLP is 495.77 mGy-cm. Automated exposure control was utilized for the study. A dose lowering technique was utilized adhering to the principles of ALARA. COMPARISON: None. FINDINGS: Vertebrae: Diffuse osteopenia with multilevel disc degenerative disease, more significant at C5-C6 with narrowing of disc height and vacuum phenomenon. Normal cervical lordosis with normal alignment of the vertebral bodies. Normal vertebral body height and posterior elements with no acute fracture. Discs/spinal canal/neural foramina: Calcified disc disease of bilateral carotid arteries. No central canal stenosis or neuroforaminal encroachment. Soft tissues: Unremarkable. IMPRESSION: Degenerative disease as described with no acute fracture or subluxation. Electronically signed by: Julite Lambert MD 10/25/23 02:[address] 10/25/23 00:51 Exam(s): CT HEAD Without Contrast EXAM: CT Head Without Intravenous Contrast CLINICAL HISTORY: Reason for exam: syncope/fall/pain. TECHNIQUE: Axial computed tomography images of the head/brain without intravenous contrast. CTDI is 38.55 mGy and DLP is 624.41 mGy-cm. Automated exposure control was utilized for the study. A dose lowering technique was utilized adhering to the principles of ALARA. COMPARISON: None. FINDINGS: Brain: Moderate generalized brain atrophy. Decreased attenuation within the deep right matter compatible with microangiopathic disease. No hemorrhage. No significant white matter disease. Ventricles: Unremarkable. No ventriculomegaly. Bones/joints: Unremarkable. No acute fracture. Soft tissues: Unremarkable. Sinuses: Unremarkable as visualized. No acute sinusitis. Mastoid air cells: Unremarkable as visualized. No mastoid effusion. IMPRESSION: Chronic changes as described with no acute intracranial hemorrhage or space-occupying lesion. Electronically signed by: Juliet Lambert MD 10/25/23 02:37 AM Abdomen/Pelvis CT 10/25/23 01:37 Exam(s): CT ABDOMEN + PELVIS Without Contrast EXAM: CT Abdomen and Pelvis Without Intravenous Contrast CLINICAL HISTORY: Reason for exam: syncope/fall/lumbar pain, ARF. TECHNIQUE: Axial computed tomography images of the abdomen and pelvis without intravenous contrast. CTDI is 24.66 mGy and DLP is 1400.36 mGy-cm. Automated exposure control was utilized for the study. A dose lowering technique was utilized adhering to the principles of ALARA. COMPARISON: None. FINDINGS: Lung bases: Bilateral lower lobe atelectasis. Heart: Unremarkable. No cardiomegaly. No significant pericardial effusion. Normal cardiac size with coronary artery calcifications. ABDOMEN: Liver: Unremarkable. Gallbladder and bile ducts: Slightly over distended gallbladder. No calcified stones. No ductal dilation. Pancreas: Unremarkable. No ductal dilation. Spleen: Splenic granulomata. Adrenals: Unremarkable. No mass. Kidneys and ureters: Mild bilateral perinephric stranding otherwise normal bilateral kidneys. No obstructing stones. No hydronephrosis. Stomach and bowel: Unremarkable. No obstruction. No mucosal thickening. PELVIS: Appendix: Normal appendix. Bladder: Tiny calcifications along the posterior aspect of the urinary bladder suggestive of previously passed. No stones. Reproductive: Unremarkable as visualized. ABDOMEN and PELVIS: Intraperitoneal space: Unremarkable. No free air. No significant fluid collection. Bones/joints: Multilevel degenerative disease of the spine, bilateral SI joints and hips with no distinct fracture or subluxation. Soft tissues: Unremarkable. Vasculature: Atherosclerotic disease of aorta with no aneurysm. Lymph nodes: Unremarkable. No enlarged lymph nodes. IMPRESSION: 1. No evidence of visceral or intra-abdominal injury. 2. Tiny calcifications along the posterior right bladder wall suggestive of previously passed small calculi. 3. Splenic granulomata suggestive of old blood in vomitus infection. Nonspecific bilateral perinephric stranding. Otherwise unremarkable abdominal viscera. Electronically signed by: Juliet Lambert MD 10/25/23 02:[address] 10/25/23 01:37 Exam(s): CT CHEST Without Contrast EXAM: CT Chest Without Intravenous Contrast CLINICAL HISTORY: Reason for exam: syncope/fall/sternal pain. TECHNIQUE: Axial computed tomography images of the chest without intravenous contrast. CTDI is 24.53 mGy and DLP is 988.32 mGy-cm. Automated exposure control was utilized for the study. A dose lowering technique was utilized adhering to the principles of ALARA. COMPARISON: 10/25/2023. FINDINGS: Lungs: Mild bilateral lower lobe atelectasis. No mass. Pleural space: Unremarkable. No pleural effusion or pneumothorax. Heart: Unremarkable. No cardiomegaly. No significant pericardial effusion. Normal cardiac size with coronary artery calcifications. Bones/joints: Diffuse osteopenia. There is a fracture involving the inferior aspect of the sternum with mild separation and adjacent soft tissue swelling/mild hematoma in the retrosternal region. Slight increased kyphosis of thoracic spinal degenerative disease. No distinct fracture or subluxation seen. Soft tissues: See above. Vasculature: Atherosclerotic disease of aorta with no aneurysm. Lymph nodes: Unremarkable. No enlarged lymph nodes. Spleen: Upper abdomen revealed splenic granulomata, remainder of the visualized upper abdominal structures are unremarkable. IMPRESSION: 1. Fracture involving the lower aspect of the sternum with mild separation through the fracture line and mild retrosternal swelling/hematoma. 2. Mild bilateral lower lobe atelectasis, otherwise no acute cardiopulmonary disease. 3. No pleural effusion or pneumothorax. Electronically signed by: Juliet Lambert MD 10/25/23 02:50 AM Discharge Plan Visit Data Chief Complaint: Weakness Stated Complaint: WEAKNESS X COUPLE DAYS, ?SYNCOPE TONIGHT ED Provider: Yohan Nath Discharge Problem: Sepsis, Anaplasmosis, Transaminitis, Metabolic acidosis, increased anion gap, Sternal fracture with retrosternal contusion, Acute renal failure, Syncope, Atrial fibrillation, new onset Patient Disposition: Admitted As Inpatient Discharge Instructions Interventions: ED Discharge Assessment Last Done: 10/25/23 08:09 Discharge Problem: Sepsis Qualifiers: Sepsis type: sepsis due to unspecified organism Sepsis acute organ dysfunction status: with acute organ dysfunction Severe sepsis acute organ dysfunction type: acute renal failure Acute renal failure type: unspecified Severe sepsis shock status: without septic shock Qualified Code(s): A41.9 - Sepsis, unspecified organism Sternal fracture with retrosternal contusion Qualifiers: Encounter type: initial encounter Fracture type: closed Qualified Code(s): S 22.20XA - Unspecified fracture of sternum, initial encounter for closed fracture Acute renal failure Qualifiers: Acute renal failure type: unspecified Qualified Code(s): N17.9 - Acute kidney failure, unspecified Syncope Qualifiers: Syncope type: unspecified Qualified Code(s): R55 - Syncope and collapse
[2023-10-25] MEDS: ACETAMINOPHEN 1,000 MG/100 ML VIAL IV STA (01:12)
[2023-10-25 01:25] LABS: Prothrombin Time 11.3 Seconds (9.0-12.0)
[2023-10-25 01:28] LABS: Basophils # (auto) 0.02 K/uL (0.00-0.20); Basophils % (auto) 0.2 %; Echinocytes 3+; Hematocrit (blood only) 35.1 % (42.0-52.0); Hemoglobin 12.5 g/dl (14.0-18.0); Immature Granulocytes # (auto) 0.05 K/uL (0.01-0.20); Immature Granulocytes % (auto) 0.6 %; Lymphocytes # (auto) 1.24 K/uL (1.20-3.40); Lymphocytes % (auto) 15.4 %; Mean Corpuscular Hemoglobin 31.3 pg (25.0-34.0); Mean Corpuscular Hgb Conc 35.6 g/dL (32.0-36.0); Mean Corpuscular Volume 87.8 fL (80.0-100.0); Mean Platelet Volume 14.4 fL (9.4-12.4); Monocytes # (auto) 0.41 K/uL (0.11-0.59); Monocytes % (auto) 5.1 %; Neutrophils # (auto) 6.32 K/uL (1.40-6.50); Neutrophils % (auto) 78.7 %; Platelet Count 70 K/uL (130-400); Platelet Estimate Decreased (Normal); RDW Coefficient of Variation 12.5 % (11.5-14.5); RDW Standard Deviation 40.4 fL (36.4-46.3); White Blood Count 8.04 K/ul (4.8-10.8)
[2023-10-25 01:34] LABS: Albumin Globulin Ratio 1.2 (0.9-2); Albumin Level 3.4 gm/dl (3.4-5.0); BUN Creatinine Ratio 18.2 (10-20); Bilirubin,Total 1.6 mg/dl (0.2-1.0); Calcium 8.2 mg/dl (8.6-10.3); Creatinine Clr Calc Pharmacy 17.6 ml/min; Est GFR (African American) 8.8 ml/min; Est GFR (Non-African American) 7.6 ml/min; Globulin 2.9 gm/dl (2.5-4.0); Potassium 3.4 mmol/L (3.5-5.1); Thyroid Stimulating Hormone 1.216 uIu/ml (0.300-4.500); Total Protein 6.3 gm/dl (6.0-8.3); Troponin I High Sensitivity 15.8 pg/ml (0-20)
[2023-10-25 01:51] LABS: Adenovirus PCR Not Detected (NotDetected); Bordetella parapertussis PCR Not Detected (NotDetected); Bordetella pertussis PCR Not Detected (NotDetected); Chlamydia pneumoniae PCR Not Detected (NotDetected); Coronavirus 229E PCR Not Detected (NotDetected); Coronavirus CoV-2 (COVID19)PCR Not Detected (NotDetected); Coronavirus HKU1 PCR Not Detected (NotDetected); Coronavirus NL63 PCR Not Detected (NotDetected); Coronavirus OC43PCR Not Detected (NotDetected); Human Metapneumovirus PCR Not Detected (NotDetected); Influenza A PCR Not Detected (NotDetected); Influenza B PCR Not Detected (NotDetected); Mycoplasma pneumoniae PCR Not Detected (NotDetected); Parainfluenza Virus 1 PCR Not Detected (NotDetected); Parainfluenza Virus 2 PCR Not Detected (NotDetected); Parainfluenza Virus 3 PCR Not Detected (NotDetected); Parainfluenza Virus 4 PCR Not Detected (NotDetected); Respiratory Syncytial VirusPCR Not Detected (NotDetected); Rhinovirus/Enterovirus PCR Not Detected (NotDetected)
--- NOTE | 2023-10-25 02:37 | CT Scan Report ---
Exam(s): CT HEAD Without Contrast EXAM: CT Head Without Intravenous Contrast CLINICAL HISTORY: Reason for exam: syncope/fall/pain. TECHNIQUE: Axial computed tomography images of the head/brain without intravenous contrast. CTDI is 38.55 mGy and DLP is 624.41 mGy-cm. Automated exposure control was utilized for the study. A dose lowering technique was utilized adhering to the principles of ALARA. COMPARISON: None. FINDINGS: Brain: Moderate generalized brain atrophy. Decreased attenuation within the deep right matter compatible with microangiopathic disease. No hemorrhage. No significant white matter disease. Ventricles: Unremarkable. No ventriculomegaly. Bones/joints: Unremarkable. No acute fracture. Soft tissues: Unremarkable. Sinuses: Unremarkable as visualized. No acute sinusitis. Mastoid air cells: Unremarkable as visualized. No mastoid effusion. IMPRESSION: Chronic changes as described with no acute intracranial hemorrhage or space-occupying lesion. Electronically signed by: Juliet Lambert MD 10/25/23 02:37 AM
--- NOTE | 2023-10-25 02:47 | CT Scan Report ---
Exam(s): CT C SPINE EXAM: CT Cervical Spine Without Intravenous Contrast CLINICAL HISTORY: Reason for exam: syncope/fall/pain. TECHNIQUE: Axial computed tomography images of the cervical spine without intravenous contrast. CTDI is 26.96 mGy and DLP is 495.77 mGy-cm. Automated exposure control was utilized for the study. A dose lowering technique was utilized adhering to the principles of ALARA. COMPARISON: None. FINDINGS: Vertebrae: Diffuse osteopenia with multilevel disc degenerative disease, more significant at C5-C6 with narrowing of disc height and vacuum phenomenon. Normal cervical lordosis with normal alignment of the vertebral bodies. Normal vertebral body height and posterior elements with no acute fracture. Discs/spinal canal/neural foramina: Calcified disc disease of bilateral carotid arteries. No central canal stenosis or neuroforaminal encroachment. Soft tissues: Unremarkable. IMPRESSION: Degenerative disease as described with no acute fracture or subluxation. Electronically signed by: Juliet Lambert MD 10/25/23 02:46 AM
[2023-10-25] MEDS: CEFEPIME 2,000 MG/20 ML VIAL IV STA (02:51)
[2023-10-25] MEDS: SODIUM CHLORIDE 0.9% 500 ML IV ONE (02:51)
--- NOTE | 2023-10-25 02:51 | CT Scan Report ---
Exam(s): CT CHEST Without Contrast EXAM: CT Chest Without Intravenous Contrast CLINICAL HISTORY: Reason for exam: syncope/fall/sternal pain. TECHNIQUE: Axial computed tomography images of the chest without intravenous contrast. CTDI is 24.53 mGy and DLP is 988.32 mGy-cm. Automated exposure control was utilized for the study. A dose lowering technique was utilized adhering to the principles of ALARA. COMPARISON: 10/25/2023. FINDINGS: Lungs: Mild bilateral lower lobe atelectasis. No mass. Pleural space: Unremarkable. No pleural effusion or pneumothorax. Heart: Unremarkable. No cardiomegaly. No significant pericardial effusion. Normal cardiac size with coronary artery calcifications. Bones/joints: Diffuse osteopenia. There is a fracture involving the inferior aspect of the sternum with mild separation and adjacent soft tissue swelling/mild hematoma in the retrosternal region. Slight increased kyphosis of thoracic spinal degenerative disease. No distinct fracture or subluxation seen. Soft tissues: See above. Vasculature: Atherosclerotic disease of aorta with no aneurysm. Lymph nodes: Unremarkable. No enlarged lymph nodes. Spleen: Upper abdomen revealed splenic granulomata, remainder of the visualized upper abdominal structures are unremarkable. IMPRESSION: 1. Fracture involving the lower aspect of the sternum with mild separation through the fracture line and mild retrosternal swelling/hematoma. 2. Mild bilateral lower lobe atelectasis, otherwise no acute cardiopulmonary disease. 3. No pleural effusion or pneumothorax. Electronically signed by: Juliet Lambert MD 10/25/23 02:50 AM
[2023-10-25] MEDS: DOXYCYCLINE HYCLATE 100 MG in DEXTROSE 5% MINI-B 100 ML IV STA (02:52)
--- NOTE | 2023-10-25 02:53 | CT Scan Report ---
Exam(s): CT ABDOMEN + PELVIS Without Contrast EXAM: CT Abdomen and Pelvis Without Intravenous Contrast CLINICAL HISTORY: Reason for exam: syncope/fall/lumbar pain, ARF. TECHNIQUE: Axial computed tomography images of the abdomen and pelvis without intravenous contrast. CTDI is 24.66 mGy and DLP is 1400.36 mGy-cm. Automated exposure control was utilized for the study. A dose lowering technique was utilized adhering to the principles of ALARA. COMPARISON: None. FINDINGS: Lung bases: Bilateral lower lobe atelectasis. Heart: Unremarkable. No cardiomegaly. No significant pericardial effusion. Normal cardiac size with coronary artery calcifications. ABDOMEN: Liver: Unremarkable. Gallbladder and bile ducts: Slightly over distended gallbladder. No calcified stones. No ductal dilation. Pancreas: Unremarkable. No ductal dilation. Spleen: Splenic granulomata. Adrenals: Unremarkable. No mass. Kidneys and ureters: Mild bilateral perinephric stranding otherwise normal bilateral kidneys. No obstructing stones. No hydronephrosis. Stomach and bowel: Unremarkable. No obstruction. No mucosal thickening. PELVIS: Appendix: Normal appendix. Bladder: Tiny calcifications along the posterior aspect of the urinary bladder suggestive of previously passed. No stones. Reproductive: Unremarkable as visualized. ABDOMEN and PELVIS: Intraperitoneal space: Unremarkable. No free air. No significant fluid collection. Bones/joints: Multilevel degenerative disease of the spine, bilateral SI joints and hips with no distinct fracture or subluxation. Soft tissues: Unremarkable. Vasculature: Atherosclerotic disease of aorta with no aneurysm. Lymph nodes: Unremarkable. No enlarged lymph nodes. IMPRESSION: 1. No evidence of visceral or intra-abdominal injury. 2. Tiny calcifications along the posterior right bladder wall suggestive of previously passed small calculi. 3. Splenic granulomata suggestive of old blood in vomitus infection. Nonspecific bilateral perinephric stranding. Otherwise unremarkable abdominal viscera. Electronically signed by: Juliet Lambert MD 10/25/23 02:52 AM
[2023-10-25 03:03] LABS: Base Excess VBG -9.8 mEq/L; HCO3 VBG 15 mmol/L; Oxygen Saturation VBG < 60.0 %; PCO2 VBG 30 mmHg (38-50); PO2 VBG 35 mmHg; pH VBG 7.31 (7.36-7.41)
[2023-10-25 03:29] LABS: Ovalocytes 1+
--- NOTE | 2023-10-25 03:39 | History & Physical Report ---
Date of Service October 25, 2023 Assessment & Plan (1) Anaplasmosis: Plan: Patient with recent tick bite and 4 days of generally feeling unwell. BioFire negative. Lyme negative. Edilia smear negative. Patient positive for anaplasmosis. Started on doxy in the ED Continue 100 mg BID for at least 14 days. f/u BCx/UCx f/u tick borne panel abx - doxycycline: start date 10/24 monitor transaminitis, anemia, thrombocytopenia (2) Hypotension: Plan: Presumed hypovolemic hypotension with compensatory tachycardia. Moderate improvement with 3L of fluid resuscitation. Could consider albumin infusion. May need vasopressive support if MAPs consistently < 65. Continue to monitor. (3) ELANA (acute kidney injury): Plan: No baseline kidney disease. Cr 6.47. Etiology unclear. Presumed pre-renal. No signs of obstruction on CT. Ordered urine lytes to calculate FeNa. Zazueta in place and draining. 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 f/u CK, urine lytes Continue to monitor Stricts Is and Os Zazueta placed in ED (4) Atrial fibrillation with rapid ventricular response: Plan: Reportedly patient in a fib about 25 years ago that self resolved. Not on blood thinners at that time. Did have a CVA about 2 years ago and is now back in a fib. Ventricular rate 90-100s at present. As patient hypotensive and HR < 120s would hold off on rate control for now. Likely in the setting of acute illness. Monitor on tele. Hold on starting DOAC as platelets 70 and patient has a retrosternal hematoma. Will also hold on ECHO for now. With patient's stroke history would strongly recommend some sort of anticoagulation plan prior to discharge. monitor on tele hold on rate control/DOAC initiation hold on ECHO (5) Metabolic acidosis, increased anion gap: Plan: Likely in the setting of significant ELANA. ABG acidotic with decreased CO2. Acute metabolic acidosis with partial respiratory compensation. Continue to monitor. (6) Sternal fracture with retrosternal contusion: Plan: Post traumatic sternal fracture with retrosternal contusion. Mild soft tissue swelling seen on CT. Ordered lidocaine patch. Avoid opioids while hypotensive and acidotic. Has Tylenol as needed. Repeat trop ordered for 06:00 to eval for cardiac contusion. f/u HsTrop (7) Hemiparesis affecting left side as late effect of cerebrovascular accident: Plan: Stable. Holding plavix for now as platelets 70. PT/OT ordered (8) Hypercholesterolemia: Plan: Hold statin for now. Can resume once HDS stable. (9) Hypertension: Plan: Hold antihypertensives for now. Can resume once HDS stable. (10) Transaminitis: Plan: Likely in the setting of Anaplasmosis (11) Anemia: Plan: Likely in the setting of Anaplasmosis Plan Code status: full DVT ppx: SCDs, ambulation, hold plavix as platelets 70 FENGI: heart healthy diet - s/p 3 L fluid resuscitation now mIVF @ 125 mL/hr LR x2L Dispo: PCU/Tele History of Present Illness Chief Complaint: malaise Primary Care Provider: Vadim Wang MD 78 y/o male with a PMHx of CVA with residual left sided weakness, HLD, and HTN presents with generalized weakness and malaise. Patient with MSK complaints started 3-4 days ago describes as lower back pain. Decreased appetite and PO intake. Did have some dizziness throughout the day and very slight shortness of breath. When getting out of bed today he felt dizzy and "collapsed" striking his chest on the bedside table. Did not strike his head. No LOC. Patient with significant pain in that area since the incident. No CP, nausea, vomiting, abdominal pain. Has not been eating much so he has not been moving his bowels. No pain or burning with urination. No blood in his urine. Allergies Allergy/AdvReac Type Severity Reaction Status Date / Time No Known Allergies Allergy Verified 10/25/23 01:10 Home Medications Medication Instructions Recorded Confirmed Type acetaminophen 500 mg tablet 1,000 mg PO Q6H PRN Pain 06/17/20 10/25/23 History (Tylenol Extra Strength) mecobalamin (vitamin B12) 1,000 1,000 mcg PO DAILY #30 tabs 06/09/22 10/25/23 Rx mcg chewable tablet clopidogrel 75 mg tablet (Plavix) 75 mg PO DAILY #90 tabs 12/22/22 10/25/23 Rx amoxicillin 500 mg tablet 2,000 mg (4 x 500 mg) PO UD PRN 05/09/23 10/25/23 Rx prior to dental procedures #16 tabs amlodipine 10 mg tablet 10 mg PO DAILY #90 tabs 08/08/23 10/25/23 Rx lisinopril 40 mg tablet 40 mg PO DAILY #90 tabs 09/05/23 10/25/23 Rx chlorthalidone 25 mg tablet 25 mg PO HS 10/25/23 10/25/23 History ezetimibe 10 mg tablet (Zetia) 10 mg PO HS 10/25/23 10/25/23 History rosuvastatin 40 mg tablet 40 mg PO HS 10/25/23 10/25/23 History triamcinolone acetonide 0.025 % 1 applic topical BID PRN Skin 10/25/23 10/25/23 History topical cream Irritation Past Med/Surg History Problem List (Updated 10/25/23 @ 11:50 by Yohan Nath MD) Sepsis (Acute) Atrial fibrillation, new onset (Acute) Syncope (Acute) Acute renal failure (Acute) Anaplasmosis (Acute) Sternal fracture with retrosternal contusion (Acute) Sternal fracture Atrial fibrillation with rapid ventricular response Metabolic acidosis, increased anion gap (Acute) Anemia Transaminitis (Acute) Hypotension ELANA (acute kidney injury) Anaplasmosis B12 deficiency High prostate specific antigen (PSA) Hemiparesis affecting left side as late effect of cerebrovascular accident History of CVA (cerebrovascular accident) January 2022 Carotid stenosis, bilateral Aneurysm, cerebral, nonruptured Hypercholesterolemia (Chronic) Hyperglycemia (Chronic) Hypertension (Chronic) History of colon polyps Mitral regurgitation Medical History Dry skin Seborrheic keratosis BPH (benign prostatic hyperplasia) Hypertension Hyperlipidemia Surgical History Laryngeal polyp benign polypectomy in the late History of colonoscopy History of esophagogastroduodenoscopy (EGD) with polyp removal History of wisdom tooth extraction Family History Mother , age 86 of breast cancer Breast cancer Cancer Some urothilial cancer Father , age 57 of heart failure Heart disease Myocardial infarction Sister Multiple sclerosis Other No family history of adverse response to anesthesia Denies family history of Prostate cancer Coronary heart disease Colorectal cancer Social History Smoking Status: Former smoker Age Started Using Tobacco: 22; Age Quit Using Tobacco: 42; packs per day: 0.5; Second Hand Exposure: No; Do You Dip or Chew Tobacco: No; Tobacco Cessation Education Requested by Patient: No Hx Alcohol Use: Yes Alcohol type: beer Alcohol Intake Frequency Comment: about 3-4 beers on Fridays and Saturdays. 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 Other Information That Helps Us Care for You: No Feels Safe at Home: Yes Safety Concerns: Feels Safe At This Time Childhood Exposure to Second-Hand Smoke: Yes Diet: regular caffeine: Yes Dental Care, Regularly: Yes Physical Activity Frequency: 5-6 Times per Week Seatbelt Use: always Sunscreen Use: Yes Assistive Devices: Cane and Glasses Review of Systems 2 Review of Systems: See HPI Physical Exam 2 Physical Exam: Gen: ill appearing, non-toxic patient in NAD HEENT: AT NC MMM OP clear no lymphadenopathy Resp: CTAB no wheezing no increased work of breathing CV: tachycardic, regular rate, no m/r/g clinically well perfused, TTP over the sternum with some swelling and light ecchymosis Abd: +BS, soft, non-tender, non-distended MSK: no obvious deformities Skin: no rashes or bruising Neuro: alert and oriented Psych: appropriate mood and affect Results & Data Results & Data Vital Signs (Past 12 Hours) Vital Signs Pulse Pulse Resp BP BP Pulse Ox O2 Del Method 10/25/23 03:30 92 H 20 108/53 L 95 10/25/23 03:15 93 H 22 112/60 95 10/25/23 03:00 95 H 20 107/58 L 96 10/25/23 02:30 92 H 22 89/67 L 95 10/25/23 02:03 86 22 89/67 L 95 10/25/23 01:39 98 H 24 97 10/25/23 01:00 90 20 97/68 L 96 10/25/23 00:53 95 Room Air 10/25/23 00:53 95 H 18 104/59 L 95 Room Air 10/25/23 00:53 95 Room Air 10/25/23 00:45 86 20 104/59 L 96 10/25/23 00:28 98 H 19 109/93 95 Room Air 10/25/23 00:26 103 H Laboratory Results 10/25/23 00:37 10/25/23 00:37 Diagnostic Findings Cervical Spine CT 10/25/23 00:51 FINDINGS: Vertebrae: Diffuse osteopenia with multilevel disc degenerative disease, more significant at C5-C6 with narrowing of disc height and vacuum phenomenon. Normal cervical lordosis with normal alignment of the vertebral bodies. Normal vertebral body height and posterior elements with no acute fracture. Discs/spinal canal/neural foramina: Calcified disc disease of bilateral carotid arteries. No central canal stenosis or neuroforaminal encroachment. Soft tissues: Unremarkable. IMPRESSION: Degenerative disease as described with no acute fracture or subluxation. Head CT 10/25/23 00:51 FINDINGS: Brain: Moderate generalized brain atrophy. Decreased attenuation within the deep right matter compatible with microangiopathic disease. No hemorrhage. No significant white matter disease. Ventricles: Unremarkable. No ventriculomegaly. Bones/joints: Unremarkable. No acute fracture. Soft tissues: Unremarkable. Sinuses: Unremarkable as visualized. No acute sinusitis. Mastoid air cells: Unremarkable as visualized. No mastoid effusion. IMPRESSION: Chronic changes as described with no acute intracranial hemorrhage or space- occupying lesion. Abdomen/Pelvis CT 10/25/23 01:37 FINDINGS: Lung bases: Bilateral lower lobe atelectasis. Heart: Unremarkable. No cardiomegaly. No significant pericardial effusion. Normal cardiac size with coronary artery calcifications. ABDOMEN: Liver: Unremarkable. Gallbladder and bile ducts: Slightly over distended gallbladder. No calcified stones. No ductal dilation. Pancreas: Unremarkable. No ductal dilation. Spleen: Splenic granulomata. Adrenals: Unremarkable. No mass. Kidneys and ureters: Mild bilateral perinephric stranding otherwise normal bilateral kidneys. No obstructing stones. No hydronephrosis. Stomach and bowel: Unremarkable. No obstruction. No mucosal thickening. PELVIS: Appendix: Normal appendix. Bladder: Tiny calcifications along the posterior aspect of the urinary bladder suggestive of previously passed. No stones. Reproductive: Unremarkable as visualized. ABDOMEN and PELVIS: Intraperitoneal space: Unremarkable. No free air. No significant fluid collection. Bones/joints: Multilevel degenerative disease of the spine, bilateral SI joints and hips with no distinct fracture or subluxation. Soft tissues: Unremarkable. Vasculature: Atherosclerotic disease of aorta with no aneurysm. Lymph nodes: Unremarkable. No enlarged lymph nodes. IMPRESSION: 1. No evidence of visceral or intra-abdominal injury. 2. Tiny calcifications along the posterior right bladder wall suggestive of previously passed small calculi. 3. Splenic granulomata suggestive of old blood in vomitus infection. Nonspecific bilateral perinephric stranding. Otherwise unremarkable abdominal viscera. Chest CT 10/25/23 01:37 FINDINGS: Lungs: Mild bilateral lower lobe atelectasis. No mass. Pleural space: Unremarkable. No pleural effusion or pneumothorax. Heart: Unremarkable. No cardiomegaly. No significant pericardial effusion. Normal cardiac size with coronary artery calcifications. Bones/joints: Diffuse osteopenia. There is a fracture involving the inferior aspect of the sternum with mild separation and adjacent soft tissue swelling/mild hematoma in the retrosternal region. Slight increased kyphosis of thoracic spinal degenerative disease. No distinct fracture or subluxation seen. Soft tissues: See above. Vasculature: Atherosclerotic disease of aorta with no aneurysm. Lymph nodes: Unremarkable. No enlarged lymph nodes. Spleen: Upper abdomen revealed splenic granulomata, remainder of the visualized upper abdominal structures are unremarkable. IMPRESSION: 1. Fracture involving the lower aspect of the sternum with mild separation through the fracture line and mild retrosternal swelling/hematoma. 2. Mild bilateral lower lobe atelectasis, otherwise no acute cardiopulmonary disease. 3. No pleural effusion or pneumothorax. Supervising Physician Co-Signing Physician Notes Patient seen and examined, chart reviewed, case discussed with Dr. Ruiz and I agree with the assessment and plan as documented above. In brief, patient is a 78yo male presenting with Anaplasmosis infection - known tick bite. Laboratory findings consistent with such - elevation of LFTs, Anemia and thrombocytopenia. Also with significant ELANA Patient with AF on EKG Fall resulting in fracture of sternum On exam he is in discomfort from sternal fracture, no additional complaints No rash NC/AT, PERRL, MMM +S1/S2, irregularly irregular, tachycardic, no m/r/g CTA, no rales/rhonchi Abd soft, NT/ND Assessment/Plan -Doxycycline -IVF -Closely monitor CBC, BMP and LFTs for resolution -Avoid nephrotoxins -Pain control for sternal fracture -Remainder as above -Will need anticoagulation with new AF - holding for now due to thrombocytopenia and sternal hematoma Resident Activity Tracking Resident Involvement: Resident Care Provided Care Provided: Adult Hospital Medicine
[2023-10-25] MEDS: LACTATED RINGER'S 500 ML IV ONE (03:44)
[2023-10-25] MEDS ORDERED: ALUMINUM/MAGNESIUM SUSP 30 ML UDC PO PRN (04:06)
[2023-10-25] MEDS: STAT IV Infusion **Titration per Protocol STA (04:29)
[2023-10-25] MEDS: NOREPINEPHRINE/D5W 4 MG/250 ML PLCT IV SCH (04:29)
[2023-10-25 04:41] LABS: Appearance Urine Turbid (Clear); Bilirubin Urine 1+ (Negative); Blood Urine 2+ (Negative); Cast Urine Automated >20 /lpf (0-2); Color Urine Dark Yellow; Epithelial Cell Urine Auto >20 /hpf (0-2); Glucose Urine UA Negative (Negative); Ketones Urine Trace (Negative); Leukocyte Esterase Urine Trace (Negative); Nitrite Urine Negative (Negative); Protein Urine 2+ (Negative); Specific Gravity Urine 1.018 (1.000-1.030); Urobilinogen Urine Negative (Negative); WBC Urine Automated 0-5 /hpf (0-5)
[2023-10-25 04:48] LABS: Creatinine Urine Random 149.6 mg/dl
[2023-10-25 04:50] LABS: Amorphous Sediment Urine Present (None Prsent); Bacteria Urine Automated 2+ (None Seen); Granular Casts Urine Present /lpf (None Prsent)
[2023-10-25] MEDS: LIDOCAINE 5% 1 PATCH TD STA (05:08)
[2023-10-25] MEDS: LACTATED RINGER'S 1,000 ML IV SCH (05:25)
--- NOTE | 2023-10-25 07:05 | XRay Report ---
XR chest 1V portable HISTORY: syncope COMPARISON: Chest 01/20/2022. FINDINGS: No pneumothorax. The heart remains enlarged. No new focal lung consolidations to suggest a pneumonia. No evidence for pulmonary edema. No pleural effusions. IMPRESSION: Stable cardiomegaly. Otherwise, no acute process within the chest. ACT 112: Negative or not required by law. Electronically signed by: Seng Lezama M.D. 10/25/2023 7:04 AM
[2023-10-25] MEDS ORDERED: HYDROmorphone INJ 0.5 MG/0.5 ML SYR IV PRN (07:14)
[2023-10-25] MEDS: HYDROmorphone INJ 0.5 MG/0.5 ML SYR IV PRN (07:35)
[2023-10-25 08:04] LABS: Albumin Level 3.1 gm/dl (3.4-5.0); Bilirubin,Total 1.5 mg/dl (0.2-1.0); Calcium 7.5 mg/dl (8.6-10.3); Magnesium 2.1 mg/dl (1.7-2.4); Potassium 3.4 mmol/L (3.5-5.1)
[2023-10-25 08:28] LABS: Albumin Globulin Ratio 1.1 (0.9-2); BUN Creatinine Ratio 18.6 (10-20); Creatinine Clr Calc Pharmacy 12.6 ml/min; Est GFR (Non-African American) 8.7 ml/min; Globulin 2.7 gm/dl (2.5-4.0); Total Protein 5.8 gm/dl (6.0-8.3); Troponin I High Sensitivity 15.4 pg/ml (0-20)
--- NOTE | 2023-10-25 08:36 | Hospitalist Progress Note ---
Date of Service October 25, 2023 Assessment & Plan (1) Anaplasmosis: (2) Hypotension: (3) ELANA (acute kidney injury): (4) Atrial fibrillation with rapid ventricular response: (5) Metabolic acidosis, increased anion gap: (6) Sternal fracture with retrosternal contusion: (7) Hemiparesis affecting left side as late effect of cerebrovascular accident: (8) Hypercholesterolemia: (9) Hypertension: (10) Transaminitis: (11) Anemia: Plan Anaplasmosis - Acute -Recent tick bite and 4 days of generally feeling unwell -BioFire negative. Lyme negative. Edilia smear negative. -Patient positive for anaplasmosis. -Monitor transaminitis, anemia, thrombocytopenia, leukopenia thought to be due to anaplasmosis -Started on doxy in the ED on 10/25/23 Continue 100 mg BID for 7-10 days -BCx/UCx: pending -Tick borne panel: pending Hypotension -Presumed hypovolemic hypotension with compensatory tachycardia. -Moderate improvement with 3L of fluid resuscitation. -Could consider albumin infusion, currently 31 -May need vasopressive support if MAPs consistently < 65. Continue to monitor. Acute Kidney Injury -Prior creatinine in 08/2022 was 1.47. Was 6.47 on admission -Most recent: 5.82, trending downward -Etiology unclear. Likely pre-renal and intrinsic: -No signs of obstruction on CT. -Urine: 2+ protein, 2+ blood, 1+ bili, trace leukocyte esterase and ketones. + Urine RBC, hyaline, urine bacteria, amorphous sediment, granular casts -CK: 102. FeNa:1.24% -Stricts Is and Os -Zazueta in place -If minimal improvement or high likelihood of needing ENVIR[employer]MENT[employer]IST, will consider nephrology consult -Continue to trend labs Anemia - Acute -Most recent: 7.9 -Likely in the setting of Anaplasmosis +/- concurrent babesiosis infection (results pending), and receiving 4 liters of fluid -Consider evaluating for hemolytic anemia -Lactate 1.2 -Consider repeating CBC; if Hgb still low, consider blood transfusion -Patient was 12.5 at admission, now 7.9. This is a 5.4 change -No signs of active bleeding, hemodynamically stable -Ordered reticulocyte count -Repeat H&H AFIB with RVR -Reportedly patient in a fib about 25 years ago that self resolved, no blood thinners -Had a CVA about 2 years ago -In the setting of acute illness -TSH wnl -Ventricular rate 90-100s at present -Hold -Rate control: patient hypotensive and HR < 120s -DOAC: platelets 70, patient has a retrosternal hematoma CHADS-VASc = 9.8% -Monitor on tele -Ordered echo -With patient's stroke history, consider anticoagulation plan prior to discharge. -Consider sleep study as outpatient Metabolic Acidosis, increase anion gap - acute -Acute metabolic acidosis with partial respiratory compensation - Likely in the setting of significant ELANA. -ABG acidotic with decreased CO2. -Continue to monitor Sternal fracture with retrosternal contusion -Post traumatic sternal fracture with retrosternal contusion -Mild soft tissue swelling seen on CT. Ordered lidocaine patch. -Repeat trop: 15.8 (wnl) -Avoid opioids while hypotensive and acidotic -Has Tylenol as needed History of CVA with Hemiparesis affecting left side -Stable -Hold plavix for now as platelets 70 -PT/OT ordered Hyperlipidemia -Hold statin -Resume once HDS stable Hypertension - Chronic, on Lisinopril 40 mg -Most recent 108/ -Hold antihypertensives -Resume once HDS stable Transaminitis - New -Likely in the setting of Anaplasmosis -Continue to trend Thrombocytopenia -On admission:70, current: 40 -Likely due to anaplasmosis FEN: heart healthy diet Code status: full code DVT ppx: SCDs, ambulation, hold plavix as platelets 70 Held home meds: Plavix, Statin, antihypertensives Consults: N/A PT/OT: Ordered Dispo: PCU/Tele Supervising Physician Co-Signing Physician Notes I personally examined the patient and verified all reyes points of history and exam, discussed case, and agree with decision making with Dr Sharp and D D'Richard MS4 feeling better. chest pain under reasonable control. updated on working dxs and plans, answered all questions to the best of my ability vitals noted nad heent nc at mmm breathing unlabored no accessory muscles good effort skin no rashes no pallor or icterus anaplasmosis/sepsis - doxy, supportive care, time. ARF - prerenal ?possibly some degree of ATN as well. improving. no indications for acute HD. continue to follow, hopefully ongoing improvement wtih fluids fall/sternal fracture - pain control, supportive care, time afib - rate control. start anticoagulation as soon as is safe with platelets DVT proph - goes hand in hand w afib as far as anticoagulation (right now plt too low) otherwise as above Subjective Yakov Davis is a 78 year old male with a PMHx of CVA (x2) with residual left sided weakness (first one was 2 years ago, second one was 2 months ago), HLD, and HTN who was admitted on 10/25/23 for concerns of generalized weakness and malaise. 1-2 weeks ago, he found a small black tick after a day of mowing grass. He removed it with tweezers immediately. He did not have a rash and has not developed a rash since that time. His symptoms started with lower back pain 4 days ago (10/21/23), accompanied by decrease appetite. On 10/24/23 he became dizzy when getting out of bed, resulting in a fall where his chest was hit on the bedside table. He did not hit his head or lose consciousness. He endorses dyspnea on exertion, specifically with stairs and on hot days. He has also had chronic lower back pain since his stroke. It is worse at night and with increased activity. He describes it as feeling like a muscle strain. He was supposed to have an appointment with his PCP today to discuss his low back pain. He has not had chest pain, nausea, vomiting, dysuria, hematuria, neck pain, n/v/d, abdominal pain, dysphagia. He was found to have multiple abnormalities in the ED, including: Sternal fracture with retrosternal contusion, Anaplasmosis, Transaminitis, Metabolic acidosis with increased anion gap, Acute renal failure, Syncope, Atrial fibrillation, new onset Pain control: Low back pain is poorly controlled, would like second lidocaine patch if possible Bowel/bladder concerns: No, but notes that he has intermittent constipation that he treats with Metamucil Mobility: Uses cane at baseline Review of Systems Review of Systems: See HPI, otherwise negative Physical Exam Physical Exam: Constitutional: well-appearing, no acute distress HEENT: NCAT, no conjunctival injection,no LE edema, eyes tearful bilaterally, more prominent on left Resp: CTABL, no wheezes/rales/rhonchi appreciated,no increased work of breathing GI: soft, nondistended, nontender, BS normoactive MSK: no gross deformities appreciated Skin: warm, dry, no rash appreciated, lidocaine patch in place over sternum Neuro: alert, oriented, no focal neurologic deficit appreciated other than left sided weakness consistent with history of CVA Results & Data Results & Data Vital Signs (Past 12 Hours) Vital Signs Pulse Pulse Resp BP BP Pulse Ox O2 Del Method 10/25/23 07:10 106 H 18 108/68 98 Room Air 10/25/23 06:42 99 H 22 109/60 95 10/25/23 06:00 91 H 23 104/63 96 10/25/23 05:53 103 H 22 101/61 96 10/25/23 05:30 96 H 23 96/56 L 95 10/25/23 05:26 102 H 18 102/66 95 Room Air 10/25/23 05:15 106 H 18 102/63 96 10/25/23 05:00 104 H 22 95/62 L 96 10/25/23 04:27 95 Room Air 10/25/23 04:15 105 H 16 104/68 95 10/25/23 04:14 97 H 10/25/23 04:03 104 H 20 97/63 L 97 10/25/23 03:45 100 H 22 96/54 L 98 10/25/23 03:30 92 H 20 108/53 L 95 10/25/23 03:15 93 H 22 112/60 95 10/25/23 03:00 95 H 20 107/58 L 96 10/25/23 02:30 92 H 22 89/67 L 95 10/25/23 02:03 86 22 89/67 L 95 10/25/23 01:39 98 H 24 97 10/25/23 01:00 90 20 97/68 L 96 10/25/23 00:53 95 Room Air 10/25/23 00:53 95 H 18 104/59 L 95 Room Air 10/25/23 00:53 95 Room Air 10/25/23 00:45 86 20 104/59 L 96 10/25/23 00:28 98 H 19 109/93 95 Room Air 10/25/23 00:26 103 H Laboratory Results Abnormal Lab Results 10/25/23 10/25/23 10/25/23 00:37 02:43 02:49 WBC 8.04 RBC 4.00 L Hgb 12.5 L Hct 35.1 L MCV 87.8 MCH 31.3 MCHC 35.6 RDW Std Deviation 40.4 RDW Coeff of Tam 12.5 Plt Count 70 L MPV 14.4 H Immature Gran % (Auto) 0.6 Neut % (Auto) 78.7 Lymph % (Auto) 15.4 Patrick % (Auto) 5.1 Eos % (Auto) 0.0 Baso % (Auto) 0.2 Neut # (Auto) 6.32 Lymph # (Auto) 1.24 Patrick # (Auto) 0.41 Eos # (Auto) 0.00 Baso # (Auto) 0.02 Immature Gran # (Auto) 0.05 Platelet Estimate Decreased L Polychromasia Ovalocytes 1+ Echinocytes 3+ PT 11.3 INR 1.0 VBG pH 7.31 L VBG pCO2 30 L VBG pO2 35 VBG HCO3 15 VBG O2 Saturation < 60.0 VBG Base Excess -9.8 Sodium 134 L Potassium 3.4 L Chloride 101 Carbon Dioxide 17 L Anion Gap 16 H BUN 118 H Creatinine 6.47 H* Est Cr Clr Drug Dosing 17.6 Est GFR ( Amer) 8.8 Est GFR (Non-Af Amer) 7.6 BUN/Creatinine Ratio 18.2 Glucose 164 H Lactate 1.2 Calcium 8.2 L Magnesium Total Bilirubin 1.6 H AST 68 H ALT 87 H Alkaline Phosphatase 138 H Total Creatine Kinase 102 Troponin I High Sens 15.8 Total Protein 6.3 Albumin 3.4 Globulin 2.9 Albumin/Globulin Ratio 1.2 Lipase 69 Procalcitonin 8.47 H TSH 1.216 Urine Color Urine Appearance Urine pH Ur Specific [place] Urine Protein Urine Glucose (UA) Urine Ketones Urine Blood Urine Nitrite Urine Bilirubin Urine Urobilinogen Ur Leukocyte Esterase Urine WBC (Auto) Urine RBC (Auto) U Hyaline Cast (Auto) U Epithel Cells (Auto) Urine Bacteria (Auto) Amorphous Sediment Granular Casts Ur Random Creatinine Ur Random Sodium Nasal Screen MRSA (PCR) Adenovirus (PCR) Not Detected Anaplasma Smear See Comment A Cancelled Babesia Smear See Comment Cancelled B. pertussis DNA (PCR) Not Detected B.parapertussis DNA PCR Not Detected Lyme Disease Screen Cancelled Negative C. pneumoniae DNA (PCR) Not Detected Coronavirus OC43 (PCR) Not Detected Coronavirus HKU1 (PCR) Not Detected Coronavirus 229E (PCR) Not Detected SARS-CoV-2 (PCR) Not Detected Coronavirus NL63 (PCR) Not Detected Human Metapneumovir PCR Not Detected Influenza Type A (PCR) Not Detected Influenza Type B (PCR) Not Detected M. pneumoniae (PCR) Not Detected Parainfluenza 1 (PCR) Not Detected Parainfluenza 2 (PCR) Not Detected Parainfluenza 3 (PCR) Not Detected Parainfluenza 4 (PCR) Not Detected RSV (PCR) Not Detected Entero/Rhino (PCR) Not Detected 10/25/23 10/25/23 10/25/23 03:17 03:45 07:21 WBC 4.67 L RBC 2.52 L Hgb 7.9 L D Hct 23.3 L MCV 92.5 D MCH 31.3 MCHC 33.9 RDW Std Deviation 43.8 RDW Coeff of Tam 13.0 Plt Count 41 L MPV 13.4 H Immature Gran % (Auto) 0.6 Neut % (Auto) 80.4 Lymph % (Auto) 13.9 Patrick % (Auto) 4.9 Eos % (Auto) 0.0 Baso % (Auto) 0.2 Neut # (Auto) 3.75 Lymph # (Auto) 0.65 L Patrick # (Auto) 0.23 Eos # (Auto) 0.00 Baso # (Auto) 0.01 Immature Gran # (Auto) 0.03 Platelet Estimate Polychromasia 1+ Ovalocytes Echinocytes 3+ PT INR VBG pH VBG pCO2 VBG pO2 VBG HCO3 VBG O2 Saturation VBG Base Excess Sodium 136 Potassium 3.4 L Chloride 108 H Carbon Dioxide 14 L Anion Gap 14 H BUN 108 H Creatinine 5.82 H* D Est Cr Clr Drug Dosing 12.6 Est GFR ( Amer) 10.0 Est GFR (Non-Af Amer) 8.7 BUN/Creatinine Ratio 18.6 Glucose 143 H Lactate Calcium 7.5 L Magnesium 2.1 Total Bilirubin 1.5 H AST 57 H ALT 73 H Alkaline Phosphatase 123 H Total Creatine Kinase Troponin I High Sens 15.4 Total Protein 5.8 L Albumin 3.1 L Globulin 2.7 Albumin/Globulin Ratio 1.1 Lipase Procalcitonin TSH Urine Color Dark Yellow Urine Appearance Turbid A Urine pH 5.0 Ur Specific [place] 1.018 Urine Protein 2+ H Urine Glucose (UA) Negative Urine Ketones Trace H Urine Blood 2+ H Urine Nitrite Negative Urine Bilirubin 1+ H Urine Urobilinogen Negative Ur Leukocyte Esterase Trace H Urine WBC (Auto) 0-5 Urine RBC (Auto) 6-10 H U Hyaline Cast (Auto) >20 H U Epithel Cells (Auto) >20 H Urine Bacteria (Auto) 2+ H Amorphous Sediment Present A Granular Casts Present A Ur Random Creatinine 149.6 Ur Random Sodium 41 Nasal Screen MRSA (PCR) Negative Adenovirus (PCR) Anaplasma Smear Babesia Smear B. pertussis DNA (PCR) B.parapertussis DNA PCR Lyme Disease Screen C. pneumoniae DNA (PCR) Coronavirus OC43 (PCR) Coronavirus HKU1 (PCR) Coronavirus 229E (PCR) SARS-CoV-2 (PCR) Coronavirus NL63 (PCR) Human Metapneumovir PCR Influenza Type A (PCR) Influenza Type B (PCR) M. pneumoniae (PCR) Parainfluenza 1 (PCR) Parainfluenza 2 (PCR) Parainfluenza 3 (PCR) Parainfluenza 4 (PCR) RSV (PCR) Entero/Rhino (PCR) Diagnostic Findings EXAM: CT Abdomen and Pelvis Without Intravenous Contrast CLINICAL HISTORY: Reason for exam: syncope/fall/lumbar pain, ARF. FINDINGS: Lung bases: Bilateral lower lobe atelectasis. Heart: Unremarkable. No cardiomegaly. No significant pericardial effusion. Normal cardiac size with coronary artery calcifications. ABDOMEN: Liver: Unremarkable. Gallbladder and bile ducts: Slightly over distended gallbladder. No calcified stones. No ductal dilation. Pancreas: Unremarkable. No ductal dilation. Spleen: Splenic granulomata. Adrenals: Unremarkable. No mass. Kidneys and ureters: Mild bilateral perinephric stranding otherwise normal bilateral kidneys. No obstructing stones. No hydronephrosis. Stomach and bowel: Unremarkable. No obstruction. No mucosal thickening. PELVIS: Appendix: Normal appendix. Bladder: Tiny calcifications along the posterior aspect of the urinary bladder suggestive of previously passed. No stones. Reproductive: Unremarkable as visualized. ABDOMEN and PELVIS: Intraperitoneal space: Unremarkable. No free air. No significant fluid collection. Bones/joints: Multilevel degenerative disease of the spine, bilateral SI joints and hips with no distinct fracture or subluxation. Soft tissues: Unremarkable. Vasculature: Atherosclerotic disease of aorta with no aneurysm. Lymph nodes: Unremarkable. No enlarged lymph nodes. IMPRESSION: 1. No evidence of visceral or intra-abdominal injury. 2. Tiny calcifications along the posterior right bladder wall suggestive of previously passed small calculi. 3. Splenic granulomata suggestive of old blood in vomitus infection. Nonspecific bilateral perinephric stranding. Otherwise unremarkable abdominal viscera. Exam(s): CT C SPINE FINDINGS: Vertebrae: Diffuse osteopenia with multilevel disc degenerative disease, more significant at C5-C6 with narrowing of disc height and vacuum phenomenon. Normal cervical lordosis with normal alignment of the vertebral bodies. Normal vertebral body height and posterior elements with no acute fracture. Discs/spinal canal/neural foramina: Calcified disc disease of bilateral carotid arteries. No central canal stenosis or neuroforaminal encroachment. Soft tissues: Unremarkable. IMPRESSION: Degenerative disease as described with no acute fracture or subluxation. Exam(s): CT CHEST Without Contrast FINDINGS: Lungs: Mild bilateral lower lobe atelectasis. No mass. Pleural space: Unremarkable. No pleural effusion or pneumothorax. Heart: Unremarkable. No cardiomegaly. No significant pericardial effusion. Normal cardiac size with coronary artery calcifications. Bones/joints: Diffuse osteopenia. There is a fracture involving the inferior aspect of the sternum with mild separation and adjacent soft tissue swelling/mild hematoma in the retrosternal region. Slight increased kyphosis of thoracic spinal degenerative disease. No distinct fracture or subluxation seen. Soft tissues: See above. Vasculature: Atherosclerotic disease of aorta with no aneurysm. Lymph nodes: Unremarkable. No enlarged lymph nodes. Spleen: Upper abdomen revealed splenic granulomata, remainder of the visualized upper abdominal structures are unremarkable. IMPRESSION: 1. Fracture involving the lower aspect of the sternum with mild separation through the fracture line and mild retrosternal swelling/hematoma. 2. Mild bilateral lower lobe atelectasis, otherwise no acute cardiopulmonary disease. 3. No pleural effusion or pneumothorax. XR chest 1V portable HISTORY: syncope COMPARISON: Chest 01/20/2022. FINDINGS: No pneumothorax. The heart remains enlarged. No new focal lung consolidations to suggest a pneumonia. No evidence for pulmonary edema. No pleural effusions. IMPRESSION: Stable cardiomegaly. Otherwise, no acute process within the chest. Exam(s): CT HEAD Without Contrast FINDINGS: Brain: Moderate generalized brain atrophy. Decreased attenuation within the deep right matter compatible with microangiopathic disease. No hemorrhage. No significant white matter disease. Ventricles: Unremarkable. No ventriculomegaly. Bones/joints: Unremarkable. No acute fracture. Soft tissues: Unremarkable. Sinuses: Unremarkable as visualized. No acute sinusitis. Mastoid air cells: Unremarkable as visualized. No mastoid effusion. IMPRESSION: Chronic changes as described with no acute intracranial hemorrhage or space- occupying lesion. Medications Administered Current Inpatient Medications Acetaminophen (Acetaminophen 325 Mg Tab) 650 mg PO Q4H PRN PRN Reason: Pain or Fever Stop: 11/24/23 04:05 Last Admin: 10/25/23 09:08 Dose: 650 mg Al Hydrox/Mg Hydrox/Simethicone (Aluminum/Magnesium Susp 30 Ml Udc) 15 ml PO Q4H PRN PRN Reason: Dyspepsia Stop: 11/24/23 04:05 Hydromorphone HCl (Hydromorphone Inj 0.5 Mg/0.5 Ml Syr) 0.25 mg IV Q3H PRN PRN Reason: Pain (1,2,3,4,5) & Pre PT Stop: 11/08/23 07:13 Hydromorphone HCl (Hydromorphone Inj 0.5 Mg/0.5 Ml Syr) 0.5 mg IV Q3H PRN PRN Reason: Pain (6,7,8,9,10) Stop: 11/08/23 07:13 Last Admin: 10/25/23 11:06 Dose: 0.5 mg Lactated Ringer's (Lr) 1,000 mls @ 125 mls/hr IV .Q8H PATRICIO Stop: 10/25/23 20:59 Last Admin: 10/25/23 05:25 Dose: 125 mls/hr Doxycycline Hyclate 100 mg/ (Dextrose) 100 mls @ 50 mls/hr IV Q12H PATRICIO Stop: 11/08/23 14:39 Magnesium Hydroxide (Magnesium Hydroxide Susp 30 Ml Udc) 30 ml PO Q12H PRN PRN Reason: Constipation Stop: 11/24/23 04:05 Miscellaneous (Remove Lidoderm Patch) 1 each N/A ONE ONE Stop: 10/25/23 17:01 Polyethylene Glycol (Polyethylene (Miralax) 17 Gm Pack) 17 gm PO DAILY PRN PRN Reason: Constipation Stop: 11/24/23 04:05 ECG Rate (beats per minute): 102 Rhythm: atrial fibrillation (w/ RVR) Findings: + prolonged QT (QTc 463) Comparison ECG Date: from (01/20/22) Change: the following changes noted (new afib, prolonged QTc)
[2023-10-25 08:43] LABS: Hematocrit (blood only) 23.3 % (42.0-52.0); Hemoglobin 7.9 g/dl (14.0-18.0); Mean Corpuscular Hemoglobin 31.3 pg (25.0-34.0); Mean Corpuscular Hgb Conc 33.9 g/dL (32.0-36.0); Mean Corpuscular Volume 92.5 fL (80.0-100.0); Mean Platelet Volume 13.4 fL (9.4-12.4); Platelet Count 41 K/uL (130-400); RDW Standard Deviation 43.8 fL (36.4-46.3); Red Blood Count 2.52 M/uL (4.70-6.10); White Blood Count 4.67 K/ul (4.8-10.8)
[2023-10-25 08:51] LABS: Basophils # (auto) 0.01 K/uL (0.00-0.20); Basophils % (auto) 0.2 %; Echinocytes 3+; Immature Granulocytes # (auto) 0.03 K/uL (0.01-0.20); Immature Granulocytes % (auto) 0.6 %; Lymphocytes # (auto) 0.65 K/uL (1.20-3.40); Lymphocytes % (auto) 13.9 %; Monocytes # (auto) 0.23 K/uL (0.11-0.59); Monocytes % (auto) 4.9 %; Neutrophils # (auto) 3.75 K/uL (1.40-6.50); Neutrophils % (auto) 80.4 %; Polychromasia 1+
[2023-10-25] MEDS: ACETAMINOPHEN 325 MG TAB PO PRN (09:08)
[2023-10-25 14:37] LABS: Anaplasmosis Smear(Rpt to DOH) Pos for Anaplasma
[2023-10-25] MEDS: DOXYCYCLINE HYCLATE 100 MG in DEXTROSE 5% MINI-B 100 ML IV SCH (14:44)
[2023-10-25 16:19] LABS: Hematocrit (blood only) 33.9 % (42.0-52.0); Hemoglobin 11.9 g/dl (14.0-18.0); Reticulocyte % 0.89 % (0.50-2.00); Reticulocytes # 0.03 10^6/uL (0.020-0.100)
--- NOTE | 2023-10-25 17:50 | Billing Data ---
Date of Service October 25, 2023 Coding Level of Care Code 65359 SUB INP/OBS CARE MIN
[2023-10-26] MEDS: LIDOCAINE 5% 1 PATCH TD SCH (05:11)
--- NOTE | 2023-10-26 09:07 | Hospitalist Progress Note ---
Date of Service October 26, 2023 Assessment & Plan (1) Anaplasmosis: (2) Hypotension: (3) ELANA (acute kidney injury): (4) Atrial fibrillation with rapid ventricular response: (5) Metabolic acidosis, increased anion gap: (6) Sternal fracture with retrosternal contusion: (7) Hemiparesis affecting left side as late effect of cerebrovascular accident: (8) Hypercholesterolemia: (9) Hypertension: (10) Transaminitis: (11) Anemia: Plan Anaplasmosis - Acute, improving -Recent tick bite and 4 days of generally feeling unwell -BioFire negative. Lyme negative. Edilia smear negative. Patient positive for anaplasmosis. -Started on doxy in the ED on 10/25/23. Continue 100 mg BID for 7-10 days -BCx/UCx: pending -Tick borne panel: pending -Monitor transaminitis, anemia, thrombocytopenia, leukopenia: thought to be due to anaplasmosis -Improving 10/25 Acute Kidney Injury - likely pre-renal and ATN in origin -Prior creatinine 08/2022 was 1.47. 6.47 on admission. -10/25/23: 5.82 -FeNa:1.24% -10/26/23: 6.86 -Improvement yesterday like due to dilution -In the context of prerenal and ATN, current baseline creatinine likely around 6.5 -Patient is perfusing well -Strict Is and Os -Zazueta in place -Consider nephrology consult -Continue to trend labs Sternal fracture with retrosternal contusion -Post traumatic sternal fracture with retrosternal contusion -Mild soft tissue swelling seen on CT. Ordered lidocaine patch. -Repeat trop: 15.8 (wnl) -Avoid opioids while hypotensive and acidotic -Continue Hydromorphone Inj 0.5 Mg/0.5 and 0.25 mg IV Q3H PRN and Hydromorphone Inj 0.5 Mg/0.5 Ml Syr) 0.5 mg IV Q3H PRN Anemia - Acute -Likely in the setting of Anaplasmosis +/- concurrent babesiosis infection (results pending) and fluids. No signs of active bleeding, hemodynamically stable -Most recent: 11.2 -Hgb 7.2 on 10/25/23, likely lab error. Hgb today was 11.9 and 11.2 on repeat -Reticulocyte count wnl -Trend with [employer] Hypotension -Presumed hypovolemic hypotension with compensatory tachycardia. -Moderate improvement with 3L of fluid resuscitation. -May need vasopressive support if MAPs consistently < 65. Continue to monitor. AFIB with RVR -Reportedly patient in a fib about 25 years ago that self resolved, no blood thinners -Had a CVA about 2 years ago -In the setting of acute illness -TSH wnl -Ventricular rate 90-100s at present -Hold -Rate control: patient hypotensive and HR < 120s -DOAC: platelets 70, patient has a retrosternal hematoma CHADS-VASc = 9.8% -Monitor on tele -Ordered echo -With patient's stroke history, consider anticoagulation plan prior to discharge. -Consider sleep study as outpatient Metabolic Acidosis, increase anion gap -Acute metabolic acidosis with partial respiratory compensation - Likely in the setting of significant ELANA. -Continue to monitor History of CVA with Hemiparesis affecting left side -Stable -Continue plavix 75 mg -PT/OT Hyperlipidemia -Continue rosuvastatin 40 mg PO and ezetimibe 10 mg PO Hypertension -Most recent -Continue lisinopril 40 mg PO, chlorthalidone 25 mg PO, amlodipine 10 mg PO Transaminitis - New -Likely in the setting of Anaplasmosis -Continue to trend Thrombocytopenia -On admission:70, current: 40 -Likely due to anaplasmosis FEN: heart healthy diet Code status: full code DVT ppx: SCDs, ambulation, plavix 75 mg Held home meds: None Consults: None PT/OT: Ordered Dispo: PCU/Tele Admission and Anticipated Discharge Date Admission Date: October 25, 2023 Supervising Physician Co-Signing Physician Notes I personally examined the patient and verified all reyes points of history and exam, discussed case, and agree with decision making with Dr Gross and D D'Richard MS4 Feels pretty good. Chest pain under reasonable control. Pain meds help well enough but seem to wear off may be a little bit too soon. No shortness of breath, decent urine output. vitals noted nad heent nc at mmm breathing unlabored no accessory muscles good effort skin no rashes no pallor or icterus anaplasmosis/sepsis - doxy, supportive care, time. This appears to be improving ARF - unfortunately appears to have been predominantly ATNthe improvement in his creatinine yesterday was likely dilution. Fortunately no hyperkalemia, good urine output and no dyspnea/other signs of pulmonary edematherefore no acute indication for dialysis. Continue to follow closely. Discussed with patient that unfortunately this will likely significantly prolong his hospital stay, but that also it is quite likely that his kidneys will improve with time and supportive care. fall/sternal fracture - pain control (tighten the frequency), supportive care, time afib - rate control. start anticoagulation as soon as is safe with plateletsprobably by tomorrowplatelets have rebounded nicely today, but I just want to make sure that it is a trend rather than an outlier. DVT proph - goes hand in hand w afib as far as anticoagulation ( As long as platelets stay stable or rise again tomorrow) otherwise as above Subjective Yakov Davis is a 78 year old male with a PMHx of CVA (x2) with residual left sided weakness (first one was 2 years ago, second one was 2 months ago), HLD, and HTN who was admitted on 10/25/23 for concerns of generalized weakness and malaise. 1-2 weeks ago, he found a small black tick after a day of mowing grass. He removed it with tweezers immediately. He did not have a rash and has not developed a rash since that time. His symptoms started with lower back pain 4 days ago (10/21/23), accompanied by decrease appetite. On 10/24/23 he became dizzy when getting out of bed, resulting in a fall where his chest was hit on the bedside table. He did not hit his head or lose consciousness. He endorses dyspnea on exertion, specifically with stairs and on hot days. He has also had chronic lower back pain since his stroke. It is worse at night and with increased activity. He describes it as feeling like a muscle strain. He was supposed to have an appointment with his PCP today to discuss his low back pain. He has not had chest pain, nausea, vomiting, dysuria, hematuria, neck pain, n/v/d, abdominal pain, dysphagia. He was found to have multiple abnormalities in the ED, including: Sternal fracture with retrosternal contusion, Anaplasmosis, Transaminitis, Metabolic acidosis with increased anion gap, Acute renal failure, Syncope, Atrial fibrillation, new onset Patient has been unable to ambulate, so he is unsure if he would be dizzy with movement. No CP, SOB, abd pain, n/v/d/c, headache. Pain control: Pain from sternum fracture and low back pain better controlled with Dilaudid, but sterum pain increases before following dose Mobility: Uses cane at baseline Review of Systems Review of Systems: See HPI, otherwise negative Physical Exam Physical Exam: Constitutional: well-appearing, no acute distress HEENT: NCAT, no conjunctival injection CV: regular rhythm, no murmur appreciated, extremities, well-perfused, no LE edema Resp: CTABL, no wheezes/rales/rhonchi appreciated,no increased work of breathing GI: soft, nondistended, nontender, BS normoactive MSK: no gross deformities appreciated Skin: warm, dry, no rash appreciated Neuro: alert, oriented, no focal neurologic deficit appreciated Results & Data Results & Data Vital Signs (Past 12 Hours) Vital Signs Temp Pulse Pulse Resp BP BP Pulse Ox 10/26/23 08:00 98.4 F 96 H 20 122/59 L 96 10/26/23 03:04 98.1 F 95 H 18 107/58 L 94 10/25/23 23:06 98.2 F 92 H 18 101/62 91 10/25/23 23:04 88 O2 Del Method 10/26/23 08:00 Room Air 10/26/23 03:04 Room Air 10/25/23 23:06 Room Air 10/25/23 23:04 Laboratory Results Laboratory Results - last 24 hr 10/25/23 10/25/23 10/26/23 00:37 15:44 08:42 WBC 8.51 RBC 3.66 L Hgb 11.9 L D 11.2 L Hct 33.9 L 32.1 L MCV 87.7 D MCH 30.6 MCHC 34.9 RDW Std Deviation 41.4 RDW Coeff of Tam 13.0 Plt Count 99 L D MPV 12.9 H Immature Gran % (Auto) 0.5 Neut % (Auto) 72.4 Lymph % (Auto) 18.4 [place] % (Auto) 8.5 Eos % (Auto) 0.1 Baso % (Auto) 0.1 Reticulocyte % (Auto) 0.89 Neut # (Auto) 6.16 Lymph # (Auto) 1.57 [place] # (Auto) 0.72 H Eos # (Auto) 0.01 Baso # (Auto) 0.01 Reticulocyte # 0.030 Immature Gran # (Auto) 0.04 Peripher Smr Path Cons Sodium 135 L Potassium 3.6 Chloride 106 Carbon Dioxide 15 L Anion Gap 14 H BUN 119 H Creatinine 6.86 H* D Est Cr Clr Drug Dosing 10.7 Est GFR ( Amer) 8.2 Est GFR (Non-Af Amer) 7.1 BUN/Creatinine Ratio 17.3 Glucose 116 H Calcium 7.9 L Total Bilirubin 1.1 H AST 71 H ALT 76 H Alkaline Phosphatase 161 H Total Protein 5.4 L Albumin 2.9 L Globulin 2.5 Albumin/Globulin Ratio 1.2 Anaplasma Comment Pos for Anaplasma Medications Administered Current Inpatient Medications Acetaminophen (Acetaminophen 325 Mg Tab) 650 mg PO Q4H PRN PRN Reason: Pain or Fever Stop: 11/24/23 04:05 Last Admin: 10/26/23 06:56 Dose: 650 mg Al Hydrox/Mg Hydrox/Simethicone (Aluminum/Magnesium Susp 30 Ml Udc) 15 ml PO Q4H PRN PRN Reason: Dyspepsia Stop: 11/24/23 04:05 Hydromorphone HCl (Hydromorphone Inj 0.5 Mg/0.5 Ml Syr) 0.25 mg IV Q3H PRN PRN Reason: Pain (1,2,3,4,5) & Pre PT Stop: 11/08/23 07:13 Hydromorphone HCl (Hydromorphone Inj 0.5 Mg/0.5 Ml Syr) 0.5 mg IV Q3H PRN PRN Reason: Pain (6,7,8,9,10) Stop: 11/08/23 07:13 Last Admin: 10/26/23 11:52 Dose: 0.5 mg Doxycycline Hyclate 100 mg/ (Dextrose) 100 mls @ 50 mls/hr IV Q12H PATRICIO Stop: 11/08/23 14:39 Last Infusion: 10/26/23 09:52 Dose: Infused Lactated Ringer's (Lr) 1,000 mls @ 125 mls/hr IV .Q8H PATRICIO Stop: 11/25/23 10:59 Last Admin: 10/26/23 11:13 Dose: 125 mls/hr Lidocaine (Lidocaine 5% 1 Patch) 1 patch TD DAILY@0500 [facility] Stop: 11/25/23 04:59 Last Admin: 10/26/23 05:11 Dose: 1 patch Magnesium Hydroxide (Magnesium Hydroxide Susp 30 Ml Udc) 30 ml PO Q12H PRN PRN Reason: Constipation Stop: 11/24/23 04:05 Miscellaneous (Remove Lidoderm Patch) 1 each N/A DAILY@1700 [facility] Stop: 11/25/23 16:59 Polyethylene Glycol (Polyethylene (Miralax) 17 Gm Pack) 17 gm PO DAILY PRN PRN Reason: Constipation Stop: 11/24/23 04:05 (6) Sternal fracture with retrosternal contusion Encounter type: initial encounter Fracture type: closed Qualified Code(s): S22.20XA - Unspecified fracture of sternum, initial encounter for closed fracture
[2023-10-26 09:35] LABS: Basophils # (auto) 0.01 K/uL (0.00-0.20); Basophils % (auto) 0.1 %; Eosinophils # (auto) 0.01 K/uL (0.00-0.50); Eosinophils % (auto) 0.1 %; Hematocrit (blood only) 32.1 % (42.0-52.0); Hemoglobin 11.2 g/dl (14.0-18.0); Immature Granulocytes # (auto) 0.04 K/uL (0.01-0.20); Immature Granulocytes % (auto) 0.5 %; Lymphocytes # (auto) 1.57 K/uL (1.20-3.40); Lymphocytes % (auto) 18.4 %; Mean Corpuscular Hemoglobin 30.6 pg (25.0-34.0); Mean Corpuscular Hgb Conc 34.9 g/dL (32.0-36.0); Mean Corpuscular Volume 87.7 fL (80.0-100.0); Mean Platelet Volume 12.9 fL (9.4-12.4); Monocytes # (auto) 0.72 K/uL (0.11-0.59); Monocytes % (auto) 8.5 %; Neutrophils # (auto) 6.16 K/uL (1.40-6.50); Neutrophils % (auto) 72.4 %; Platelet Count 99 K/uL (130-400); RDW Standard Deviation 41.4 fL (36.4-46.3); Red Blood Count 3.66 M/uL (4.70-6.10); White Blood Count 8.51 K/ul (4.8-10.8)
[2023-10-26] MEDS: LACTATED RINGER'S 1,000 ML IV ONE (09:47)
[2023-10-26 09:56] LABS: Albumin Globulin Ratio 1.2 (0.9-2); Albumin Level 2.9 gm/dl (3.4-5.0); BUN Creatinine Ratio 17.3 (10-20); Bilirubin,Total 1.1 mg/dl (0.2-1.0); Calcium 7.9 mg/dl (8.6-10.3); Creatinine Clr Calc Pharmacy 10.7 ml/min; Est GFR (African American) 8.2 ml/min; Est GFR (Non-African American) 7.1 ml/min; Globulin 2.5 gm/dl (2.5-4.0); Potassium 3.6 mmol/L (3.5-5.1); Total Protein 5.4 gm/dl (6.0-8.3)
[2023-10-26] MEDS: LACTATED RINGER'S 1,000 ML IV SCH (11:13)
--- NOTE | 2023-10-26 17:02 | XCELERA ---
[id number] [id number]
--- NOTE | 2023-10-26 18:19 | Billing Data ---
Date of Service October 26, 2023 Coding Level of Care Code 94755 SUB INP/OBS CARE MIN
[2023-10-26] MEDS: HYDROmorphone INJ 0.5 MG/0.5 ML SYR IV PRN (19:44)
--- NOTE | 2023-10-27 05:34 | Electrocardiogram Report ---
Test Reason : Blood Pressure : / mmHG Vent. Rate : 102 BPM Atrial Rate : 000 BPM P-R Int : 000 ms QRS Dur : 120 ms QT Int : 356 ms P-R-T Axes : 000 042 -08 degrees QTc Int : 463 ms Atrial fibrillation with rapid ventricular response with premature ventricular or aberrantly conducte d complexes Non-specific intra-ventricular conduction delay Nonspecific T wave abnormality Abnormal ECG When compared with ECG of 20-JAN-2022 14:10, Atrial fibrillation has replaced Sinus rhythm QRS duration has increased Nonspecific T wave abnormality now evident in Inferior leads Nonspecific T wave abnormality, worse in Anterolateral leads Confirmed by Cristopher Caballero ([id number]) on 10/27/2023 5:34:18 AM Referred By: REFERRED SELF Confirmed By:Cristopher Caballero
[2023-10-27 07:47] LABS: Hematocrit (blood only) 33.8 % (42.0-52.0); Mean Corpuscular Hgb Conc 35.5 g/dL (32.0-36.0); Mean Corpuscular Volume 87.3 fL (80.0-100.0); Mean Platelet Volume 12.5 fL (9.4-12.4); Platelet Count 131 K/uL (130-400); RDW Coefficient of Variation 13.2 % (11.5-14.5); RDW Standard Deviation 41.4 fL (36.4-46.3); Red Blood Count 3.87 M/uL (4.70-6.10); White Blood Count 7.36 K/ul (4.8-10.8)
[2023-10-27 08:04] LABS: Albumin Level 2.8 gm/dl (3.4-5.0); BUN Creatinine Ratio 17.8 (10-20); Bilirubin,Total 1.4 mg/dl (0.2-1.0); Calcium 8.1 mg/dl (8.6-10.3); Creatinine Clr Calc Pharmacy 10.8 ml/min; Est GFR (African American) 8.3 ml/min; Est GFR (Non-African American) 7.2 ml/min; Globulin 2.8 gm/dl (2.5-4.0); Potassium 3.8 mmol/L (3.5-5.1); Total Protein 5.6 gm/dl (6.0-8.3)
[2023-10-27] MEDS ORDERED: STAT IV/IM STA (08:22)
[2023-10-27] MEDS: ACETAMINOPHEN 325 MG TAB PO SCH (09:27)
[2023-10-27] MEDS: SODIUM BICARBONATE 8.4% 75 MEQ in SODIUM CHLORIDE 0.45 % 1,000 ML IV SCH (09:27)
[2023-10-27] MEDS: ENOXAPARIN 100 MG/1ML SYR SQ SCH (09:27)
[2023-10-27 10:31] LABS: Acanthocytes 1+; Basophils # (auto) 0.01 K/uL (0.00-0.20); Basophils % (auto) 0.1 %; Echinocytes 1+; Eosinophils # (auto) 0.07 K/uL (0.00-0.50); Immature Granulocytes # (auto) 0.06 K/uL (0.01-0.20); Immature Granulocytes % (auto) 0.8 %; Lymphocytes # (auto) 1.47 K/uL (1.20-3.40); Monocytes # (auto) 0.52 K/uL (0.11-0.59); Monocytes % (auto) 7.1 %; Neutrophils # (auto) 5.23 K/uL (1.40-6.50); Ovalocytes 1+; Polychromasia 1+
--- NOTE | 2023-10-27 14:20 | Hospitalist Progress Note ---
Date of Service October 27, 2023 Assessment & Plan (1) Anaplasmosis: (2) Hypotension: (3) ELANA (acute kidney injury): (4) Atrial fibrillation with rapid ventricular response: (5) Metabolic acidosis, increased anion gap: (6) Sternal fracture with retrosternal contusion: (7) Hemiparesis affecting left side as late effect of cerebrovascular accident: (8) Hypercholesterolemia: (9) Hypertension: (10) Transaminitis: (11) Anemia: Plan Anaplasmosis - Acute, improving - Clinically much improved. Afebrile, cytopenias have improved. Transaminitis remainsslightly worse today, but well within the same range. Continue doxycycline. Acute Kidney Injury - likely pre-renal insult leading to ATN -Prior creatinine 08/2022 was 1.47. unfortunately holding steady in the mid 6 range. Fortunately is having good urine output, no dyspnea, and no hyp erkalemia. To that end no indications for acute dialysis. Continue supportive caredue to persistent metabolic acidosis will switch IV fluids to bicarb drip. As his p.o. intake improves, we can reduce the rate of the fluidshe is intravascularly resuscitated, but we are mostly utilizing the fluids to keep him from getting dehydrated as an added insult. The longer his creatinine remains elevated, may need to consider nephrology consult, but again given that there is no acute indication for dialysis at this time, ongoing watchful waiting. Sternal fracture with retrosternal contusion - Due to fallalso has retrosternal contusion. Pain control improvinglidocaine patch/scheduled Tylenol/as needed hydrocodone Anemia - initially was concerning due to hemoglobin being quite low on ut recheck send overall trend suggest that he really did not have much of any acute anemiarather mostly dilution effect and a little bit from phlebotomycontinue to follow but fortunately not concerning at this time. Hypotension -Presumed hypovolemic hypotension with compensatory tachycardia. - Now resolved AFIB with RVR -Reportedly patient in a fib about 25 years ago that self resolved, no blood thinners -Had a CVA about 2 years ago - echo noted, TSH normal. Rates have been easy to control. Now that his thrombocytopenia is clearly improvedinitiate Lovenox (due to his renal function)depending on his renal function, hopefully at time of discharge we can switch him to a DOAC Metabolic Acidosis, increase anion gap - due to his acute renal failuresee above History of CVA with Hemiparesis affecting left side -Stable -Continue plavix 75 mg -PT/OT Hyperlipidemia -Continue rosuvastatin 40 mg PO and ezetimibe 10 mg PO Hypertension -Most recent - antihypertensives (including an KATY and a thiazide) are on hold FEN: heart healthy diet Code status: full code DVT ppx: Lovenox Consults: None PT/OT: Ordered Dispo: PCU/Tele for ongoing close monitoring due to his acute renal failure. Admission and Anticipated Discharge Date Admission Date: October 25, 2023 Subjective Chest pain under good controlneeding Dilaudid frequently. But pain under better control now, feels that control is adequate. Has not been out of bed yet. Poor appetite but able to eat ice cream. Updated on working diagnoses and plans to the best my ability and to his satisfaction. Answered all questions to his satisfaction. Review of Systems Review of Systems: All systems reviewed & are unremarkable except as noted in HPI & below Physical Exam Physical Exam: In general he is awake and alert fatigued but no distress. HEENT normocephalic atraumatic mucous membranes moist. Breathing unlabored no accessory muscle uselungs are quiet, partly due to moderate effort and partly due to positioning (both of which really relate back to his sternal fracture) but no rales rhonchi or wheezes no accessory muscle use good effort. Skin without rashes pallor or icterus. Neuro without focal deficits. Results & Data Results & Data Vital Signs (Past 12 Hours) Vital Signs Temp Pulse Pulse Resp BP BP Pulse Ox 10/27/23 12:00 97.7 F 90 18 113/66 97 10/27/23 10:55 10/27/23 08:00 92 H 10/27/23 07:00 97.7 F 88 20 121/71 96 10/27/23 03:01 97.5 F L 94 H 18 105/68 93 O2 Del Method 10/27/23 12:00 Room Air 10/27/23 10:55 Room Air 10/27/23 08:00 10/27/23 07:00 Room Air 10/27/23 03:01 Room Air PG Care Time/CCT Total # of Minutes Spent Total Time Spent with Patient: Total time spent is greater than 50% in coordination of care (as documented) at patient's floor/unit and/or counseling patient: Coding Level of Care Code 73502 SUB INP/OBS CARE 50MIN Diagnoses Anaplasmosis A77.49 Hypotension I95.9 ELANA (acute kidney injury) N17.9 Atrial fibrillation with rapid ventricular response I48.91 Metabolic acidosis, increased anion gap E87.29 Sternal fracture with retrosternal contusion S22.20XA Encounter type: initial encounter Fracture type: closed Hemiparesis affecting left side as late effect of cerebrovascular accident I69.354 Hypercholesterolemia E78.00 Hypertension I10 Transaminitis R74.01 Anemia D64.9 (6) Sternal fracture with retrosternal contusion Encounter type: initial encounter Fracture type: closed Qualified Code(s): S22.20XA - Unspecified fracture of sternum, initial encounter for closed fracture
[2023-10-27] MEDS: HYDROmorphone INJ 0.5 MG/0.5 ML SYR IV PRN (20:04)
[2023-10-28 03:12] LABS: Babesia microti DNA Not Detected (Not Detected)
[2023-10-28 07:00] LABS: Basophils # (auto) 0.02 K/uL (0.00-0.20); Basophils % (auto) 0.3 %; Eosinophils # (auto) 0.13 K/uL (0.00-0.50); Eosinophils % (auto) 1.7 %; Hematocrit (blood only) 33.6 % (42.0-52.0); Hemoglobin 11.7 g/dl (14.0-18.0); Immature Granulocytes # (auto) 0.07 K/uL (0.01-0.20); Immature Granulocytes % (auto) 0.9 %; Lymphocytes # (auto) 1.45 K/uL (1.20-3.40); Mean Corpuscular Hemoglobin 30.5 pg (25.0-34.0); Mean Corpuscular Hgb Conc 34.8 g/dL (32.0-36.0); Mean Corpuscular Volume 87.7 fL (80.0-100.0); Mean Platelet Volume 11.9 fL (9.4-12.4); Monocytes # (auto) 0.64 K/uL (0.11-0.59); Monocytes % (auto) 8.4 %; Neutrophils # (auto) 5.33 K/uL (1.40-6.50); Neutrophils % (auto) 69.7 %; Platelet Count 166 K/uL (130-400); RDW Coefficient of Variation 13.2 % (11.5-14.5); RDW Standard Deviation 42.4 fL (36.4-46.3); Red Blood Count 3.83 M/uL (4.70-6.10); White Blood Count 7.64 K/ul (4.8-10.8)
[2023-10-28 07:22] LABS: Albumin Globulin Ratio 0.9 (0.9-2); Albumin Level 2.8 gm/dl (3.4-5.0); BUN Creatinine Ratio 18.7 (10-20); Calcium 8.3 mg/dl (8.6-10.3); Creatinine Clr Calc Pharmacy 11.5 ml/min; Est GFR (Non-African American) 7.8 ml/min; Potassium 3.4 mmol/L (3.5-5.1); Total Protein 5.8 gm/dl (6.0-8.3)
[2023-10-28] MEDS: MAGNESIUM HYDROXIDE SUSP 30 ML UDC PO PRN (10:11)
--- NOTE | 2023-10-28 10:44 | Hospitalist Progress Note ---
Date of Service October 28, 2023 Assessment & Plan (1) Anaplasmosis: Plan: Anaplasmosis - Acute, improving - Clinically much improved. Afebrile, cytopenias have improved. Transaminitis remainsslightly worse today, but well within the same range. -Continue doxycycline 100 mg twice daily x 10 days. 11/07 total doses completed as of this morning. Acute Kidney Injury - likely pre-renal insult leading to ATN -Prior creatinine 08/2022 was 1.47. unfortunately holding steady in the mid 6 range. Fortunately is having good urine output, no dyspnea, and no hyperkalemia. To that end no indications for acute dialysis. Continue supportive caredue to persistent metabolic acidosis will switch IV fluids to bicarb drip. As his p.o. intake improves, we can reduce the rate of the fluidshe is intravascularly resuscitated, but we are mostly utilizing the fluids to keep him from getting dehydrated as an added insult. The longer his creatinine remains elevated, may need to consider nephrology consult, but again given that there is no acute indication for dialysis at this time, ongoing watchful waiting. Sternal fracture with retrosternal contusion - Due to fallalso has retrosternal contusion. Pain control improvinglidocaine patch/scheduled Tylenol/as needed hydrocodone Anemia - initially was concerning due to hemoglobin being quite low on ut recheck send overall trend suggest that he really did not have much of any acute anemiarather mostly dilution effect and a little bit from phlebotomycontinue to follow but fortunately not concerning at this time. Hypotension -Presumed hypovolemic hypotension with compensatory tachycardia. - Now resolved AFIB with RVR -Reportedly patient in a fib about 25 years ago that self resolved, no blood thinners -Had a CVA about 2 years ago -Echo noted, TSH normal. Rates have been easy to control. Now that his thrombocytopenia is clearly improvedinitiate Lovenox (due to his renal function)depending on his renal function, hopefully at time of discharge we can switch him to a DOAC Metabolic Acidosis, increase anion gap - due to his acute renal failuresee above History of CVA with Hemiparesis affecting left side -Stable -Continue Plavix 75 mg -PT/OT Hyperlipidemia -Continue rosuvastatin 40 mg PO and ezetimibe 10 mg PO Hypertension -Most recent - antihypertensives (including an KATY and a thiazide) are on hold FEN: heart healthy diet Code status: full code DVT ppx: Lovenox Consults: None PT/OT: Ordered Dispo: PCU/Tele for ongoing close monitoring due to his acute renal failure. (2) Hypotension: (3) ELANA (acute kidney injury): (4) Atrial fibrillation with rapid ventricular response: (5) Metabolic acidosis, increased anion gap: (6) Sternal fracture with retrosternal contusion: (7) Hemiparesis affecting left side as late effect of cerebrovascular accident: (8) Hypercholesterolemia: (9) Hypertension: (10) Transaminitis: (11) Anemia: Plan Anaplasmosis - Acute, improving - Clinically much improved. Afebrile, cytopenias have improved. Transaminitis remainsslightly worse today, but well within the same range. Continue doxyc ycline. Acute Kidney Injury - likely pre-renal insult leading to ATN -Prior creatinine 08/2022 was 1.47. unfortunately holding steady in the mid 6 range. Fortunately is having good urine output, no dyspnea, and no hyperkalemia. To that end no indications for acute dialysis. Continue supportive caredue to persistent metabolic acidosis will switch IV fluids to bicarb drip. As his p.o. intake improves, we can reduce the rate of the fluidshe is intravascularly resuscitated, but we are mostly utilizing the fluids to keep him from getting dehydrated as an added insult. The longer his creatinine remains elevated, may need to consider nephrology consult, but again given that there is no acute indication for dialysis at this time, ongoing watchful waiting. Sternal fracture with retrosternal contusion - Due to fallalso has retrosternal contusion. Pain control improvinglidocaine patch/scheduled Tylenol/as needed hydrocodone Anemia - initially was concerning due to hemoglobin being quite low on ut recheck send overall trend suggest that he really did not have much of any acute anemiarather mostly dilution effect and a little bit from phlebotomycontinue to follow but fortunately not concerning at this time. Hypotension -Presumed hypovolemic hypotension with compensatory tachycardia. - Now resolved AFIB with RVR -Reportedly patient in a fib about 25 years ago that self resolved, no blood thinners -Had a CVA about 2 years ago - echo noted, TSH normal. Rates have been easy to control. Now that his thrombocytopenia is clearly improvedinitiate Lovenox (due to his renal function)depending on his renal function, hopefully at time of discharge we can switch him to a DOAC Metabolic Acidosis, increase anion gap - due to his acute renal failuresee above History of CVA with Hemiparesis affecting left side -Stable -Continue plavix 75 mg -PT/OT Hyperlipidemia -Continue rosuvastatin 40 mg PO and ezetimibe 10 mg PO Hypertension -Most recent - antihypertensives (including an KATY and a thiazide) are on hold FEN: heart healthy diet Code status: full code DVT ppx: Lovenox Consults: None PT/OT: Ordered Dispo: PCU/Tele for ongoing close monitoring due to his acute renal failure. Admission and Anticipated Discharge Date Admission Date: October 25, 2023 Supervising Physician Co-Signing Physician Notes I personally examined the patient and verified all reyes points of history and exam, discussed case, and agree with decision making with Dr Gross Overall doing better. Still has chest painalleviated nicely with medications, is a bit worse whenever he is uprightbut is trying to get out of bed more. Nursing noted that his IV pain medicines do seem to cause a degree of somnolence at times, and with that in mind, we have added p.o. as needed pain meds as well. Still no shortness of breath. Still good urine output. No other new complaints. anaplasmosis/sepsis - doxy, supportive care, time. This appears to be improving. Alk phos is rising, but liver appeared normal on imaging before, and from his fall/trauma he had a rather diffuse imaging of his skeletal system without any concerning findings beyond the sternal fracturecontinue to follow, but seems to be nonspecific (possibly related to the sternal fracture and the anaplasmosis) ARF - unfortunately appears to have been predominantly ATNthe improvement in his creatinine earlier in the hospital stay was likely dilution. Fortunately no hyperkalemia, good urine output and no dyspnea/other signs of pulmonary edematherefore no acute indication for dialysis. Continue to follow closely. anticipate resolution over time. Repeated UAstill has granular casts/etc., hematuria improved somewhatand certainly did not progress or have other findings that would suggest any other renal process is at play. Would periodically follow hematuria to resolution to be thorough. fall/sternal fracture - pain control, supportive care, time afib - Rate controlled, anticoagulated (currently with once daily Lovenox due to his renal function) DVT proph - anticoagulation for A-fib will more than suffice for this otherwise as above Subjective Patient resting comfortably on arrival. He does report slight improvement in his sternal chest pain ("9.0 pain out of 10.") Yesterday was 9.5 out of 10. He reported ambulating with assistance yesterday, which he tolerated well. He would like to ambulate for an hour today if possible. If he is unable to ambulate, he would like to at least sit up in the chair for some time today. Review of Systems Review of Systems: All systems reviewed & are unremarkable except as noted in HPI & below Physical Exam Physical Exam: General: No acute distress HEENT: PERRLA. Normal conjunctiva, anicteric sclera. Oropharynx normal. Respiratory: Normal respiratory effort, CTABL. Cardiovascular: RRR without murmurs, gallops, or rubs. No pedal edema. GI: Soft abdomen with normal bowel sounds heard on auscultation. Nontender x4 quadrants Neuro: Alert and oriented x3. Results & Data Results & Data Vital Signs (Past 12 Hours) Vital Signs Temp Pulse Pulse Resp BP Pulse Ox O2 Del Method 10/28/23 08:00 36.5 C 98 H 20 121/66 96 Room Air 10/28/23 07:31 Room Air 10/28/23 07:06 85 10/28/23 02:57 36.4 C L 96 H 19 100/62 95 Room Air 10/27/23 22:52 36.5 C 95 H 18 108/73 95 Room Air Resident Activity Tracking Resident Involvement: Resident Care Provided Care Provided: Adult Hospital Medicine (6) Sternal fracture with retrosternal contusion Encounter type: initial encounter Fracture type: closed Qualified Code(s): S22.20XA - Unspecified fracture of sternum, initial encounter for closed fracture
[2023-10-28 12:12] LABS: Appearance Urine Cloudy (Clear); Bacteria Urine Automated None Seen (None Seen); Bilirubin Urine Negative (Negative); Blood Urine 2+ (Negative); Color Urine Yellow; Glucose Urine UA Negative (Negative); Ketones Urine Negative (Negative); Leukocyte Esterase Urine Trace (Negative); Nitrite Urine Negative (Negative); Protein Urine 1+ (Negative); Specific Gravity Urine 1.012 (1.000-1.030); Urobilinogen Urine Negative (Negative); WBC Urine Automated 0-5 /hpf (0-5); pH Urine 5.5 (4.5-7.5)
[2023-10-28] MEDS: oxyCODONE HCL IR 5 MG TAB (IMMEDIATE RELEASE) PO PRN (12:29)
[2023-10-28 12:36] LABS: Cast Urine Automated 0-2 /lpf (0-2); Granular Casts Urine Present /lpf (None Prsent)
[2023-10-28 12:37] LABS: Amorphous Sediment Urine Present (None Prsent)
--- NOTE | 2023-10-28 16:19 | Billing Data ---
Date of Service October 28, 2023 Coding Level of Care Code 61705 SUB INP/OBS CARE MIN
[2023-10-29 06:50] LABS: Basophils # (auto) 0.02 K/uL (0.00-0.20); Basophils % (auto) 0.3 %; Eosinophils # (auto) 0.14 K/uL (0.00-0.50); Eosinophils % (auto) 2.2 %; Hematocrit (blood only) 34.1 % (42.0-52.0); Immature Granulocytes # (auto) 0.05 K/uL (0.01-0.20); Immature Granulocytes % (auto) 0.8 %; Lymphocytes # (auto) 1.17 K/uL (1.20-3.40); Lymphocytes % (auto) 18.5 %; Mean Corpuscular Hgb Conc 35.2 g/dL (32.0-36.0); Mean Corpuscular Volume 88.1 fL (80.0-100.0); Mean Platelet Volume 11.6 fL (9.4-12.4); Monocytes # (auto) 0.59 K/uL (0.11-0.59); Monocytes % (auto) 9.3 %; Neutrophils # (auto) 4.35 K/uL (1.40-6.50); Neutrophils % (auto) 68.9 %; Platelet Count 184 K/uL (130-400); RDW Coefficient of Variation 13.2 % (11.5-14.5); RDW Standard Deviation 42.2 fL (36.4-46.3); Red Blood Count 3.87 M/uL (4.70-6.10); White Blood Count 6.32 K/ul (4.8-10.8)
[2023-10-29 07:36] LABS: BUN Creatinine Ratio 17.9 (10-20); Bilirubin,Total 1.1 mg/dl (0.2-1.0); Calcium 8.8 mg/dl (8.6-10.3); Creatinine Clr Calc Pharmacy 11.8 ml/min; Est GFR (African American) 9.3 ml/min; Globulin 3.1 gm/dl (2.5-4.0); Potassium 3.6 mmol/L (3.5-5.1); Total Protein 6.1 gm/dl (6.0-8.3)
--- NOTE | 2023-10-29 08:39 | Hospitalist Progress Note ---
Date of Service October 29, 2023 Assessment & Plan (1) Anaplasmosis: (2) Hypotension: (3) ELNAA (acute kidney injury): (4) Atrial fibrillation with rapid ventricular response: (5) Metabolic acidosis, increased anion gap: (6) Sternal fracture with retrosternal contusion: (7) Hemiparesis affecting left side as late effect of cerebrovascular accident: (8) Hypercholesterolemia: (9) Hypertension: (10) Transaminitis: (11) Anemia: Plan Assessment: Yakov Davis is a 78 year old male with a PMHx of CVA (x2) with residual left sided weakness (first one was 2 years ago, second one was 2 months ago), HLD, and HTN who was admitted on 10/25/23 for concerns of generalized weakness and malaise for 4 days (starting on 10/21/23). Acute Kidney Injury - ATN in origin -Prior creatinine 08/2022 was 1.47. -Most recent creatinine 6.20 (10/28), trending downward. -Patient is perfusing well -Strict Is and Os -Zazueta in place -If creatinine is not 5 by Sunday, will consider nephrology consult -Continue to trend labs Anaplasmosis -Recent tick bite and 4 days of generally feeling unwell -BioFire negative. Lyme negative. Edilia smear negative. Patient positive for anaplasmosis. -Started on doxy in the ED on 10/25/23. Continue 100 mg BID for 7-10 days -BCx/UCx: pending -Tick borne panel: pending -Appears to be improving (see anemia, thrombocytopenia, and transaminitis) -Discontinued doxycycline IV. Ordered doxycycline 100 mg PO BID Sternal fracture with retrosternal contusion -Post traumatic sternal fracture with retrosternal contusion Mild soft tissue swelling seen on CT -Repeat trop: 15.8 -Avoid opioids while hypotensive and acidotic -Continue with lidocaine patches -Continue Hydromorphone Inj 0.5 Mg/0.5 and 0.25 mg IV Q3H PRN and Hydromorphone Inj 0.5 Mg/0.5 Ml Syr) 0.5 mg IV Q3H PRN Anemia - Resolving -Likely in the setting of Anaplasmosis +/- concurrent babesiosis infection (results pending) and fluids. No signs of active bleeding, hemodynamically stable -Most recent: 11.2 -Hgb 7.2 on 10/25/23, likely lab error. Hgb today was 11.9 and 11.2 on repeat -Reticulocyte count wnl -Stable -Most recent Hbg 12.0 (10/28) -Trend with [employer]TERNAL [employer]UDITOR AFIB with RVR -Reportedly patient in a fib about 25 years ago that self resolved, no blood thinners. Had a CVA about 2 years ago -In the setting of acute illness -TSH wnl -Ventricular rate 90-100s at present -CHADS-VASc = 9.8% -Echo: TTE on 10/26/23: -Normal LV side with low-normal systolic function. -EF 50-55%. No visualized regional wall motion abnormalities. -Moderate concentric left ventricular hypertrophy. -Sclerotic aortic valve without significant stenosis. -Normal estimated right ventricular systolic pressure. -Rate control: Amlodipine 10 mg PO daily -Anticoagulation: Lovenox 90 mg SQ daily (due to renal function) -Monitor on tele -Consider sleep study as outpatient Transaminitis - resolving -In the context of anaplasmosis -Appears to have peaked on 10/26, has continued to trend downward -Most recent: -Total bilirubin: 1.1 -AST: 58 -ALT 77 -Alk phos: 315 -Continue to trend History of CVA with Hemiparesis affecting left side, chronic -Stable -Continue plavix 75 mg -PT/OT Hyperlipidemia, chronic -Continue rosuvastatin 40 mg PO and ezetimibe 10 mg PO Hypertension, chronic -Continue lisinopril 40 mg PO, chlorthalidone 25 mg PO, amlodipine 10 mg PO Metabolic Acidosis, increase anion gap - resolved -Acute metabolic acidosis with partial respiratory compensation -Likely in the setting of significant EALNA. Thrombocytopenia - resolved -In the context of anaplasmosis -On admission: 70 -Most current: 184 (10/28) Hypotension - resolved -Presumed hypovolemic hypotension with compensatory tachycardia -Blood pressure stable FEN: heart healthy diet Code status: full code DVT ppx: SCDs, ambulation, plavix 75 mg Held home meds: None Consults: None PT/OT: Ordered Dispo: PCU/Tele Admission and Anticipated Discharge Date Admission Date: October 25, 2023 Supervising Physician Co-Signing Physician Notes ATTESTATION I also saw the patient and confirmed reyes portions of the history and exam. I agree with the impression and plan in the resident documentation, and as summarized below. Upon our exam late morning, seated in bed side chair having just completed OT. No new complaints today. EXAM VSS A/O. Conversational. NAD Heart I/I Lungs clear with non labored respirations DATA Labs HgB 12.0 Sodium 140, Potassium 3.6, BUN 111, Cr 6.20 AST 58, ALT 77, AP 315 IMPRESSION & PLAN Anaplasmosis/sepsis, improving ARF/ATN Fall with sternal fracture Afib PT/OT Primarily ATN so renal recovery will take time; fortunately, trending improvement in Cr and normal electrolytes Complete course of Doxycycline; trend LFTs Daily renal function Renally dosed Lovenox Additional per resident documentation Subjective Yakov Davis is a 78 year old male with a PMHx of CVA (x2) with residual left sided weakness (first one was 2 years ago, second one was 2 months ago), HLD, and HTN who was admitted on 10/25/23 for concerns of generalized weakness and malaise for 4 days (starting on 10/21/23). He states that the pain medication regime has been effective for the sternum pain. He reports a slight improvement in his sternal chest pain. When he moves, it can get up to a 9/10, but when he is resting, there are times when it is a 0/10. The pain is worse with hiccuping. He does not have headache, chest pain, shortness of breath, nausea, vomiting, diarrhea, constipation, or dysuria. He has not been able to walk yet, as his legs feel weak from being in bed for so long. He is currently working with PT. He reports that his appetite is a little decreased, but he is also only trying to eat foods that will be easy to pass. He would like to take a shower soon. Review of Systems Review of Systems: See HPI, otherwise negative Physical Exam Physical Exam: Constitutional: well-appearing, no acute distress HEENT: NCAT, no conjunctival injection CV: regular rhythm, no murmur appreciated, extremities, well-perfused, no LE edema Resp: CTABL, no wheezes/rales/rhonchi appreciated,no increased work of breathing GI: soft, nondistended, nontender, BS normoactive MSK: no gross deformities appreciated Skin: warm, dry, no rash appreciated Neuro: alert, oriented, no focal neurologic deficit appreciated Results & Data Results & Data Vital Signs (Past 12 Hours) Vital Signs Temp Pulse Pulse Resp BP BP Pulse Ox 10/29/23 08:03 97.3 F L 100 H 16 135/85 92 10/29/23 03:02 98.2 F 82 18 113/75 92 10/28/23 22:55 88 10/28/23 22:28 97.7 F 92 H 18 107/73 93 O2 Del Method 10/29/23 08:03 Room Air 10/29/23 03:02 Room Air 10/28/23 22:55 10/28/23 22:28 Room Air Laboratory Results Abnormal Lab Results 10/29/23 06:10 WBC 6.32 RBC 3.87 L Hgb 12.0 L Hct 34.1 L MCV 88.1 MCH 31.0 MCHC 35.2 RDW Std Deviation 42.2 RDW Coeff of Tam 13.2 Plt Count 184 MPV 11.6 Immature Gran % (Auto) 0.8 Neut % (Auto) 68.9 Lymph % (Auto) 18.5 Ashley % (Auto) 9.3 Eos % (Auto) 2.2 Baso % (Auto) 0.3 Neut # (Auto) 4.35 Lymph # (Auto) 1.17 L Ashley # (Auto) 0.59 Eos # (Auto) 0.14 Baso # (Auto) 0.02 Immature Gran # (Auto) 0.05 Sodium 140 Potassium 3.6 Chloride 103 Carbon Dioxide 26 Anion Gap 11 BUN 111 H Creatinine 6.20 H* Est Cr Clr Drug Dosing 11.8 Est GFR ( Amer) 9.3 Est GFR (Non-Af Amer) 8.0 BUN/Creatinine Ratio 17.9 Glucose 103 H Calcium 8.8 Total Bilirubin 1.1 H AST 58 H ALT 77 H Alkaline Phosphatase 315 H Total Protein 6.1 Albumin 3.0 L Globulin 3.1 Albumin/Globulin Ratio 1.0 Diagnostic Findings TTE on 10/26/23: -Normal LV side with low-normal systolic function. -EF 50-55%. No visualized regional wall motion abnormalities. -Moderate concentric left ventricular hypertrophy. -Sclerotic aortic valve without significant stenosis. -Normal estimated right ventricular systolic pressure. Medications Administered Current Inpatient Medications Acetaminophen (Acetaminophen 325 Mg Tab) 650 mg PO Q4H PRN PRN Reason: Pain or Fever Stop: 11/24/23 04:05 Last Admin: 10/27/23 06:39 Dose: 650 mg Acetaminophen (Acetaminophen 325 Mg Tab) 650 mg PO TID [facility] Stop: 11/26/23 08:59 Last Admin: 10/29/23 09:06 Dose: 650 mg Al Hydrox/Mg Hydrox/Simethicone (Aluminum/Magnesium Susp 30 Ml Udc) 15 ml PO Q4H PRN PRN Reason: Dyspepsia Stop: 11/24/23 04:05 Doxycycline Hyclate (Doxycycline Hyclate 100 Mg Cap) 100 mg PO BID [facility] Stop: 11/12/23 20:59 Enoxaparin Sodium (Enoxaparin 100 Mg/1ml Syr) 90 mg SQ DAILY [facility] Stop: 11/26/23 08:59 Last Admin: 10/29/23 09:07 Dose: 90 mg Hydromorphone HCl (Hydromorphone Inj 0.5 Mg/0.5 Ml Syr) 0.25 mg IV Q2H PRN PRN Reason: Pain (1,2,3,4,5) & Pre PT Stop: 11/08/23 07:13 Last Admin: 10/29/23 09:11 Dose: 0.25 mg Hydromorphone HCl (Hydromorphone Inj 0.5 Mg/0.5 Ml Syr) 0.5 mg IV Q2H PRN PRN Reason: Pain (6,7,8,9,10) Stop: 11/08/23 07:13 Last Admin: 10/27/23 18:02 Dose: 0.5 mg Lidocaine (Lidocaine 5% 1 Patch) 1 patch TD DAILY@0500 [facility] Stop: 11/25/23 04:59 Last Admin: 10/29/23 06:16 Dose: 1 patch Magnesium Hydroxide (Magnesium Hydroxide Susp 30 Ml Udc) 30 ml PO Q12H PRN PRN Reason: Constipation Stop: 11/24/23 04:05 Last Admin: 10/28/23 10:11 Dose: 30 ml Miscellaneous (Remove Lidoderm Patch) 1 each N/A DAILY@1700 [facility] Stop: 11/25/23 16:59 Last Admin: 10/28/23 17:58 Dose: 1 each Oxycodone HCl (Oxycodone Hcl Ir 5 Mg Tab (Immediate Release)) 5 mg PO Q4H PRN PRN Reason: Pain Stop: 11/11/23 12:07 Last Admin: 10/29/23 12:24 Dose: 5 mg Polyethylene Glycol (Polyethylene (Miralax) 17 Gm Pack) 17 gm PO DAILY PRN PRN Reason: Constipation Stop: 11/24/23 04:05 Resident Activity Tracking Resident Involvement: Resident Care Provided Care Provided: Adult Hospital Medicine Resident Supervision Co-Signing Physician Notes I personally spoke to and examined the patient and then discussed the findings/assessment and plan with the medical student and attending physician. Pt overall doing well. No new concerns. Pt is well appearing and in no acute distress. RRR, no murmur, no LE edema. CTA bilaterally. No rhonchi, wheezing, or crackles noted. ATN: secondary to pre renal insult and anaplasmosis. Stable. Will continue to monitor. If worsens, electrolyte abnormalities develop, or pt becomes oliguric, will consult nephro. Anaplasmosis: transition doxy from IV to PO 100 mg BID for total 10 day course Pt will likely need rehab placement prior to return home. Sarita Hallman, DO Family Medicine, PGY-2 (6) Sternal fracture with retrosternal contusion Encounter type: initial encounter Fracture type: closed Qualified Code(s): S22.20XA - Unspecified fracture of sternum, initial encounter for closed fracture
--- NOTE | 2023-10-29 09:00 | Hospitalist Progress Note ---
Date of Service October 29, 2023 Assessment & Plan (1) Anaplasmosis: Plan: Anaplasmosis - Acute, improving - Clinically much improved. Afebrile, cytopenias have improved. Transaminitis remainsslightly worse today, but well within the same range. -Continue doxycycline 100 mg twice daily x 10 days. 11/07 total doses completed as of this morning. Acute Kidney Injury - likely pre-renal insult leading to ATN -Prior creatinine 08/2022 was 1.47. unfortunately holding steady in the mid 6 range. Fortunately is having good urine output, no dyspnea, and no hyperkalemia. To that end no indications for acute dialysis. Continue supportive caredue to persistent metabolic acidosis will switch IV fluids to bicarb drip. As his p.o. intake improves, we can reduce the rate of the fluidshe is intravascularly resuscitated, but we are mostly utilizing the fluids to keep him from getting dehydrated as an added insult. The longer his creatinine remains elevated, may need to consider nephrology consult, but again given that there is no acute indication for dialysis at this time, ongoing watchful waiting. Sternal fracture with retrosternal contusion - Due to fallalso has retrosternal contusion. Pain control improvinglidocaine patch/scheduled Tylenol/as needed hydrocodone Anemia - initially was concerning due to hemoglobin being quite low on ut recheck send overall trend suggest that he really did not have much of any acute anemiarather mostly dilution effect and a little bit from phlebotomycontinue to follow but fortunately not concerning at this time. Hypotension -Presumed hypovolemic hypotension with compensatory tachycardia. - Now resolved AFIB with RVR -Reportedly patient in a fib about 25 years ago that self resolved, no blood thinners -Had a CVA about 2 years ago -Echo noted, TSH normal. Rates have been easy to control. Now that his thrombocytopenia is clearly improvedinitiate Lovenox (due to his renal function)depending on his renal function, hopefully at time of discharge we can switch him to a DOAC Metabolic Acidosis, increase anion gap - due to his acute renal failuresee above History of CVA with Hemiparesis affecting left side -Stable -Continue Plavix 75 mg -PT/OT Hyperlipidemia -Continue rosuvastatin 40 mg PO and ezetimibe 10 mg PO Hypertension -Most recent - antihypertensives (including an KATY and a thiazide) are on hold FEN: heart healthy diet Code status: full code DVT ppx: Lovenox Consults: None PT/OT: Ordered Dispo: PCU/Tele for ongoing close monitoring due to his acute renal failure. (2) Hypotension: (3) ELANA (acute kidney injury): (4) Atrial fibrillation with rapid ventricular response: (5) Metabolic acidosis, increased anion gap: (6) Sternal fracture with retrosternal contusion: (7) Hemiparesis affecting left side as late effect of cerebrovascular accident: (8) Hypercholesterolemia: (9) Hypertension: (10) Transaminitis: (11) Anemia: Admission and Anticipated Discharge Date Admission Date: October 25, 2023 Review of Systems Review of Systems: As per HPI Results & Data Results & Data Vital Signs (Past 12 Hours) Vital Signs Temp Pulse Pulse Resp BP BP Pulse Ox 10/29/23 08:03 36.3 C L 100 H 16 135/85 92 10/29/23 03:02 36.8 C 82 18 113/75 92 10/28/23 22:55 88 10/28/23 22:28 36.5 C 92 H 18 107/73 93 O2 Del Method 10/29/23 08:03 Room Air 10/29/23 03:02 Room Air 10/28/23 22:55 10/28/23 22:28 Room Air (6) Sternal fracture with retrosternal contusion Encounter type: initial encounter Fracture type: closed Qualified Code(s): S22.20XA - Unspecified fracture of sternum, initial encounter for closed fracture
[2023-10-29] MEDS: DOXYCYCLINE HYCLATE 100 MG CAP PO SCH (20:18)
[2023-10-29] MEDS: POLYETHYLENE (MIRALAX) 17 GM PACK PO PRN (20:23)
--- NOTE | 2023-10-30 07:00 | Hospitalist Progress Note ---
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 Acute Kidney Injury - ATN in origin -Patient is perfusing well -Prior creatinine 08/2022 was 1.47. -Creatinine trending downward. -Zazueta removed * Continue to trend labs Anaplasmosis -Recent tick bite and 4 days of generally feeling unwell -Appears to be improving (see anemia, thrombocytopenia, and transaminitis) -BioFire, lyme, shobha smear negative. Positive for anaplasmosis. -Started on doxy in the ED on 10/25/23. Continue 100 mg BID for 7-10 days * BCx/UCx: pending * Tick borne panel: pending * Continue Doxycycline 100 mg PO BID Sternal fracture with retrosternal contusion -Post traumatic sternal fracture with retrosternal contusion. Mild soft tissue swelling. Repeat trop: 15.8 * Continue lidocaine patches * Continue opioid pain regimen Anemia - Resolving -Likely in the setting of Anaplasmosis +/- concurrent babesiosis infection (results pending) and fluids. No signs of active bleeding, hemodynamically stable -Trending upward * Trend with CBC AFIB -Reportedly patient in a fib ~25 years ago, self resolved, wasn't started on blood thinners. Had a second CVA 2 months ago. -In the setting of acute illness -CHADS-VASc = 9.8% -TSH wnl -Echo: TTE on 10/26/23: EF 50-55%. No visualized regional wall motion abnormalitie s. * Continue Lovenox 90 mg SQ daily (due to renal function) * Monitor on tele * Consider sleep study as outpatient Transaminitis - resolving -In the context of anaplasmosis -Appears to have peaked on 10/26, has continued to trend downward History of CVA with Hemiparesis affecting left side, chronic -Stable * PT/OT * Hold plavix 75 mg Hyperlipidemia, chronic -Stable * Hold rosuvastatin 40 mg PO and ezetimibe 10 mg PO Hypertension, chronic -Stable * Hold lisinopril 40 mg PO, chlorthalidone 25 mg PO, amlodipine 10 mg PO Metabolic Acidosis, increase anion gap - resolved -Acute metabolic acidosis with partial respiratory compensation -Likely in the setting of significant ELANA Thrombocytopenia - resolved -In the context of anaplasmosis Hypotension - resolved -Presumed hypovolemic hypotension with compensatory tachycardia -Blood pressure stable FEN: heart healthy diet Code status: full code DVT ppx: Enoxaparin 90 mg Held home meds: plavix 75 mg, rosuvastatin 40 mg PO, ezetimibe 10 mg PO, lisinopril 40 mg PO, chlorthalidone 25 mg PO, amlodipine 10 mg PO Consults: None PT/OT: Ordered Dispo: PCU/Tele Admission and Anticipated Discharge Date Admission Date: October 25, 2023 Supervising Physician Co-Signing Physician Notes ATTESTATION I also saw the patient and confirmed reyes portions of the history and exam. I agree with the impression and plan in the resident and student documentation, and as clarified/corrected and summarized below. Zazueta has been removed. Patient without new complaints today. EXAM 121/76, 77, 18, 36.9, 90% room air A/O. Conversational. NAD Heart irregularly irregular Lungs clear with non labored respirations DATA Labs HgB 13.0 Sodium 141, Potassium 3.6, BUN 99, Cr 5.15 AST 55, ALT 73, AP 355 IMPRESSION & PLAN Anaplasmosis/sepsis, improving ARF/ATN Fall with sternal fracture Afib with controlled ventricular response PT/OT Primarily ATN so renal recovery will take time; fortunately, continues to trend towards improvement in Cr with normal electrolytes Complete course of Doxycycline; trend LFTs Daily renal function Renally dosed Lovenox Additional per resident documentation Subjective No overnight events. The patient states that the pain medication regime has been effective for the sternum pain. He reports a slight improvement in his sternal chest pain - when he moves, it can get up to a 8.5/10. At rest, it is 0/10. He reports that his catheter was removed this morning without any pain or complications. He denies dysuria and hematuria. He reports that he would ideally like to stay in the hospital until and would prefer not to go to a rehabilitation facility. He is willing to reevaluate his needs on . Review of Systems Review of Systems: See HPI, otherwise negative Physical Exam Physical Exam: Constitutional: well-appearing, no acute distress HEENT: NCAT, no conjunctival injection CV: regular rhythm, no murmur appreciated, extremities, well-perfused, no LE edema Resp: CTABL, no wheezes/rales/rhonchi appreciated,no increased work of breathing GI: soft, nondistended, nontender, BS normoactive MSK: no gross deformities appreciated Skin: warm, dry, no rash appreciated Neuro: alert, oriented, no focal neurologic deficit appreciated Results & Data Results & Data Vital Signs (Past 12 Hours) Vital Signs Temp Pulse Resp BP BP Pulse Ox O2 Del Method 10/30/23 03:22 97.5 F L 88 18 125/84 93 Room Air 10/29/23 22:25 98.1 F 86 16 128/70 95 Room Air 10/29/23 19:49 98.6 F 75 18 129/83 92 Room Air Laboratory Results Abnormal Lab Results 10/25/23 10/30/23 02:49 07:18 WBC 5.39 RBC 4.25 L Hgb 13.0 L Hct 38.1 L MCV 89.6 MCH 30.6 MCHC 34.1 RDW Std Deviation 43.2 RDW Coeff of Tam 13.1 Plt Count 208 MPV 11.1 Sodium 141 Potassium 3.6 Chloride 100 Carbon Dioxide 31 Anion Gap 10 BUN 99 H Creatinine 5.15 H* D Est Cr Clr Drug Dosing 14.2 Est GFR ( Amer) 11.6 Est GFR (Non-Af Amer) 10.0 BUN/Creatinine Ratio 19.2 Glucose 107 H Calcium 9.4 Total Bilirubin 1.3 H AST 55 H ALT 73 H Alkaline Phosphatase 355 H Total Protein 6.4 Albumin 3.1 L Globulin 3.3 Albumin/Globulin Ratio 0.9 A. phagocytophilum DNA Positive A Medications Administered Current Inpatient Medications Acetaminophen (Acetaminophen 325 Mg Tab) 650 mg PO Q4H PRN PRN Reason: Pain or Fever Stop: 11/24/23 04:05 Last Admin: 10/27/23 06:39 Dose: 650 mg Acetaminophen (Acetaminophen 325 Mg Tab) 650 mg PO TID [facility] Stop: 11/26/23 08:59 Last Admin: 10/30/23 08:28 Dose: 650 mg Al Hydrox/Mg Hydrox/Simethicone (Aluminum/Magnesium Susp 30 Ml Udc) 15 ml PO Q4H PRN PRN Reason: Dyspepsia Stop: 11/24/23 04:05 Doxycycline Hyclate (Doxycycline Hyclate 100 Mg Cap) 100 mg PO BID [facility] Stop: 11/12/23 20:59 Last Admin: 10/30/23 08:27 Dose: 100 mg Enoxaparin Sodium (Enoxaparin 100 Mg/1ml Syr) 90 mg SQ DAILY [facility] Stop: 11/26/23 08:59 Last Admin: 10/30/23 08:27 Dose: 90 mg Hydromorphone HCl (Hydromorphone Inj 0.5 Mg/0.5 Ml Syr) 0.25 mg IV Q2H PRN PRN Reason: Pain (1,2,3,4,5) & Pre PT Stop: 11/08/23 07:13 Last Admin: 10/29/23 09:11 Dose: 0.25 mg Hydromorphone HCl (Hydromorphone Inj 0.5 Mg/0.5 Ml Syr) 0.5 mg IV Q2H PRN PRN Reason: Pain (6,7,8,9,10) Stop: 11/08/23 07:13 Last Admin: 10/29/23 15:27 Dose: 0.5 mg Lidocaine (Lidocaine 5% 1 Patch) 1 patch TD DAILY@0500 [facility] Stop: 11/25/23 04:59 Last Admin: 10/30/23 06:07 Dose: 1 patch Magnesium Hydroxide (Magnesium Hydroxide Susp 30 Ml Udc) 30 ml PO Q12H PRN PRN Reason: Constipation Stop: 11/24/23 04:05 Last Admin: 10/28/23 10:11 Dose: 30 ml Miscellaneous (Remove Lidoderm Patch) 1 each N/A DAILY@1700 [facility] Stop: 11/25/23 16:59 Last Admin: 10/29/23 19:46 Dose: 1 each Oxycodone HCl (Oxycodone Hcl Ir 5 Mg Tab (Immediate Release)) 5 mg PO Q4H PRN PRN Reason: Pain Stop: 11/11/23 12:07 Last Admin: 10/30/23 10:22 Dose: 5 mg Polyethylene Glycol (Polyethylene (Miralax) 17 Gm Pack) 17 gm PO DAILY PRN PRN Reason: Constipation Stop: 11/24/23 04:05 Last Admin: 10/29/23 20:23 Dose: 17 gm Resident Supervision Co-Signing Physician Notes I personally spoke to and examined the patient and then discussed the findings/assessment and plan with the medical student and attending physician. Pt doing well today. No new concerns. He does not want to go to rehab and would prefer to go home upon discharge. Pt appears well, clinically well perfused, nonlabored breathing. ATN: Resolving. Cr continues to improve. Afib w/ RVR: Appears that pt has distant hx of afib with recurrence upon admission. Pt high risk for falls d/t weakness but also high risk for stroke d/t prior hx of CVA. Will discuss risks and benefits with pt about residential anticoagulation prior to discharge. Anaplasmosis: doxy 100 mg BID x10 days total course Sarita Hallman DO Family Medicine, PGY-2 Resident Activity Tracking Resident Involvement: Resident Care Provided Care Provided: Adult Hospital Medicine (6) Sternal fracture with retrosternal contusion Encounter type: initial encounter Fracture type: closed Qualified Code(s): S22.20XA - Unspecified fracture of sternum, initial encounter for closed fracture
[2023-10-30 08:08] LABS: Hematocrit (blood only) 38.1 % (42.0-52.0); Mean Corpuscular Hemoglobin 30.6 pg (25.0-34.0); Mean Corpuscular Hgb Conc 34.1 g/dL (32.0-36.0); Mean Corpuscular Volume 89.6 fL (80.0-100.0); Mean Platelet Volume 11.1 fL (9.4-12.4); Platelet Count 208 K/uL (130-400); RDW Coefficient of Variation 13.1 % (11.5-14.5); RDW Standard Deviation 43.2 fL (36.4-46.3); Red Blood Count 4.25 M/uL (4.70-6.10); White Blood Count 5.39 K/ul (4.8-10.8)
[2023-10-30 08:22] LABS: Albumin Globulin Ratio 0.9 (0.9-2); Albumin Level 3.1 gm/dl (3.4-5.0); BUN Creatinine Ratio 19.2 (10-20); Bilirubin,Total 1.3 mg/dl (0.2-1.0); Calcium 9.4 mg/dl (8.6-10.3); Creatinine Clr Calc Pharmacy 14.2 ml/min; Est GFR (African American) 11.6 ml/min; Globulin 3.3 gm/dl (2.5-4.0); Potassium 3.6 mmol/L (3.5-5.1); Total Protein 6.4 gm/dl (6.0-8.3)
[2023-10-31 06:45] LABS: Hematocrit (blood only) 34.7 % (42.0-52.0); Mean Corpuscular Hemoglobin 30.8 pg (25.0-34.0); Mean Corpuscular Hgb Conc 34.6 g/dL (32.0-36.0); Mean Platelet Volume 11.3 fL (9.4-12.4); Platelet Count 196 K/uL (130-400); RDW Coefficient of Variation 12.7 % (11.5-14.5); RDW Standard Deviation 41.3 fL (36.4-46.3); White Blood Count 6.42 K/ul (4.8-10.8)
--- NOTE | 2023-10-31 07:03 | Hospitalist Progress Note ---
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 Acute Kidney Injury secondary to ATN -Patient is perfusing well -Prior creatinine 08/2022 was 1.47. -Creatinine continuing to trending downward. -s/p Zazueta removal * Continue to trend labs Anaplasmosis -Recent tick bite and 4 days of generally feeling unwell -Appears to be improving (see anemia, thrombocytopenia, and transaminitis) -BioFire, lyme, Babesiosis, negative Positive for anaplasmosis. -Started on doxy in the ED on 10/25/23. Continue 100 mg BID for 10 days * BCx/UCx and tick borne panel are pending * On Day 7 of Doxycycline 100 mg PO BID Sternal fracture with retrosternal contusion -Post traumatic sternal fracture with retrosternal contusion. * Continue lidocaine patches and opioid regimen Afib -Reportedly patient in a fib ~25 years ago, self resolved, wasn't started on blood thinners. Had a second CVA 2 months ago. -In the setting of acute illness -CHADS-VASc = 6, 9.7% -TSH wnl -Echo: TTE on 10/26/23: EF 50-55%. No visualized regional wall motion abnormalities. * Continue to monitor on tele * Discussed potential need for anticoagulation with patient. Discussed risks and benefits. Patient prefers to start anticoagulation. * Discontinued Lovenox 90 mg. Ordered Eliquis 2.5 mg po BID * Ordered 12.5 mg of metoprolol PM * Consider following up with cardiology outpatient and outpatient sleep study Anemia - Resolving -Likely in the setting of Anaplasmosis and fluids. No signs of active bleeding, hemodynamically stable -Hbg downtreding slightly * Trend with CBC in AM Transaminitis - Resolving -In the context of anaplasmosis -Appears to have peaked on 10/26, has continued to trend downward History of CVA with Hemiparesis affecting left side, chronic -Stable * PT/OT * See Afib for plan * Hold plavix 75 mg Hyperlipidemia, chronic -Stable * Hold rosuvastatin 40 mg PO and ezetimibe 10 mg PO Hypertension, chronic -Stable * Hold lisinopril 40 mg PO, chlorthalidone 25 mg PO, amlodipine 10 mg PO Metabolic Acidosis, increase anion gap - resolved -Acute metabolic acidosis with partial respiratory compensation -Likely in the setting of significant ELANA Thrombocytopenia - resolved -In the context of anaplasmosis Hypotension - resolved -Presumed hypovolemic hypotension with compensatory tachycardia -Blood pressure stable FEN: heart healthy diet Code status: full code DVT ppx: Eliquis 2.5 mg po BID Held home meds: plavix 75 mg, rosuvastatin 40 mg PO, ezetimibe 10 mg PO, lisinopril 40 mg PO, chlorthalidone 25 mg PO, amlodipine 10 mg PO Consults: None PT/OT: Consulted Dispo: PCU/Tele Admission and Anticipated Discharge Date Admission Date: October 25, 2023 Supervising Physician Co-Signing Physician Notes ATTESTATION I also saw the patient and confirmed reyes portions of the history and exam. I agree with the impression and plan in the resident and student documentation, and as clarified/corrected and summarized below. Patient has increased strength with ambulation todday/ EXAM 108/66, 89, 18, 36.6, 96% on room air Review of telemetry shows Atrial fibrillation, mostly in the 80s90s, spikes to the [id number] with activity A/O. Conversational. NAD Heart irregularly irregular Lungs clear with non labored respirations DATA Labs HgB 12 Potassium 3.2, creatinine 4.12, BUN 94 AST 48, ALT 64, alk phos 314 IMPRESSION & PLAN Anaplasmosis/sepsis, improving ARF/ATN Fall with sternal fracture Afib with controlled ventricular response Continue PT/OT Second day in a row with substantial improvement in renal function Daily BMP Complete course of Doxycycline; trend LFTs Add low dose beta kristyn and titrate; suspect heart rate may elevate with increased activity Renally dosed Lovenox, transition to low-dose apixaban; may need full dose once renal function Additional per resident documentation Subjective No overnight events. The patient states that the pain medication regime has been effective for the sternum pain. He is trying to decrease the amount of opioids he is using PRN in preparation for discharge. He reports his sternum pain is a 7.5/10. The patient has been able to ambulate to the bathroom and sink without issue. He denies dysuria and hematuria. He states that feels stronger and less dizzy. He worked with PT yesterday. He denies a history of blood transfusion or GI bleed. Review of Systems Review of Systems: See HPI, otherwise negative Physical Exam Physical Exam: Constitutional: Well-appearing, no acute distress HEENT: NCAT, no conjunctival injection CV: Lidocaine patch placed over sternum. Extremities well-perfused Resp: No increased work of breathing, on room air. GI: Nondistended. MSK: No gross deformities appreciated Skin: Warm, dry, no rash appreciated Neuro: Alert, oriented, no focal neurologic deficit appreciated Results & Data Results & Data Vital Signs (Past 12 Hours) Vital Signs Temp Pulse Pulse Resp BP Pulse Ox O2 Del Method 10/31/23 06:53 96 H 10/31/23 02:45 97.5 F L 85 18 137/81 94 Room Air 10/31/23 00:00 87 10/30/23 23:07 97.7 F 67 17 123/73 95 Room Air 10/30/23 19:02 97.7 F 85 18 131/75 95 Room Air Laboratory Results Abnormal Lab Results 10/31/23 06:01 WBC 6.42 RBC 3.90 L Hgb 12.0 L Hct 34.7 L MCV 89.0 MCH 30.8 MCHC 34.6 RDW Std Deviation 41.3 RDW Coeff of Tam 12.7 Plt Count 196 MPV 11.3 Sodium 140 Potassium 3.2 L Chloride 101 Carbon Dioxide 28 Anion Gap 11 BUN 94 H Creatinine 4.12 H D Est Cr Clr Drug Dosing 17.7 Est GFR ( Amer) 15.2 Est GFR (Non-Af Amer) 13.1 BUN/Creatinine Ratio 22.8 H Glucose 103 H Calcium 9.4 Total Bilirubin 1.4 H AST 48 H ALT 64 H Alkaline Phosphatase 314 H Total Protein 6.3 Albumin 3.1 L Globulin 3.2 Albumin/Globulin Ratio 1.0 Medications Administered Current Inpatient Medications Acetaminophen (Acetaminophen 325 Mg Tab) 650 mg PO Q4H PRN PRN Reason: Pain or Fever Stop: 11/24/23 04:05 Last Admin: 10/27/23 06:39 Dose: 650 mg Acetaminophen (Acetaminophen 325 Mg Tab) 650 mg PO TID [facility] Stop: 11/26/23 08:59 Last Admin: 10/31/23 07:27 Dose: 650 mg Al Hydrox/Mg Hydrox/Simethicone (Aluminum/Magnesium Susp 30 Ml Udc) 15 ml PO Q4H PRN PRN Reason: Dyspepsia Stop: 11/24/23 04:05 Apixaban (Apixaban 2.5 Mg Tab) 2.5 mg PO BID [facility] Stop: 12/01/23 08:59 Doxycycline Hyclate (Doxycycline Hyclate 100 Mg Cap) 100 mg PO BID [facility] Stop: 11/12/23 20:59 Last Admin: 10/31/23 07:28 Dose: 100 mg Hydromorphone HCl (Hydromorphone Inj 0.5 Mg/0.5 Ml Syr) 0.25 mg IV Q2H PRN PRN Reason: Pain (1,2,3,4,5) & Pre PT Stop: 11/08/23 07:13 Last Admin: 10/29/23 09:11 Dose: 0.25 mg Hydromorphone HCl (Hydromorphone Inj 0.5 Mg/0.5 Ml Syr) 0.5 mg IV Q2H PRN PRN Reason: Pain (6,7,8,9,10) Stop: 11/08/23 07:13 Last Admin: 10/29/23 15:27 Dose: 0.5 mg Lidocaine (Lidocaine 5% 1 Patch) 1 patch TD DAILY@0500 [facility] Stop: 11/25/23 04:59 Last Admin: 10/31/23 05:44 Dose: 1 patch Magnesium Hydroxide (Magnesium Hydroxide Susp 30 Ml Udc) 30 ml PO Q12H PRN PRN Reason: Constipation Stop: 11/24/23 04:05 Last Admin: 10/28/23 10:11 Dose: 30 ml Miscellaneous (Remove Lidoderm Patch) 1 each N/A DAILY@1700 [facility] Stop: 11/25/23 16:59 Last Admin: 10/30/23 16:33 Dose: 1 each Oxycodone HCl (Oxycodone Hcl Ir 5 Mg Tab (Immediate Release)) 5 mg PO Q4H PRN PRN Reason: Pain Stop: 11/11/23 12:07 Last Admin: 10/30/23 17:40 Dose: 5 mg Polyethylene Glycol (Polyethylene (Miralax) 17 Gm Pack) 17 gm PO DAILY PRN PRN Reason: Constipation Stop: 11/24/23 04:05 Last Admin: 10/31/23 07:30 Dose: 17 gm Resident Supervision Co-Signing Physician Notes I personally spoke to and examined the patient and then discussed the findings/assessment and plan with the medical student and attending physician. Pt doing well this AM. No new concerns. His sternal pain continues to improve. He is able to move more and is gaining some strength. Pt appears well. Clinically well perfused- afib w/o RVR on tele. Non labored breathing. Conversant- mood and affect appropriate. ATN: Cr continues to improve. Recommended outpatient BMP f/u to ensure return to baseline. Anaplasmosis: Continue doxy for 10 day course (day 7) Afib w/ RVR: Resolved; however, pt still in afib. Recommended anticoagulation with eliquis (reduced dosing secondary to ELANA)- benefits and risks explained to pt. Anticipate renal function recovery and eventual full dosing of eliquis as an outpatient. Will also trial low dose metoprolol in the event to control spikes in pt's HR with activity. Sarita Hallman DO Family Medicine, PGY-2 Resident Activity Tracking Resident Involvement: Resident Care Provided Care Provided: Adult Hospital Medicine (6) Sternal fracture with retrosternal contusion Encounter type: initial encounter Fracture type: closed Qualified Code(s): S22.20XA - Unspecified fracture of sternum, initial encounter for closed fracture
[2023-10-31 07:05] LABS: Albumin Level 3.1 gm/dl (3.4-5.0); BUN Creatinine Ratio 22.8 (10-20); Bilirubin,Total 1.4 mg/dl (0.2-1.0); Calcium 9.4 mg/dl (8.6-10.3); Creatinine Clr Calc Pharmacy 17.7 ml/min; Est GFR (African American) 15.2 ml/min; Est GFR (Non-African American) 13.1 ml/min; Globulin 3.2 gm/dl (2.5-4.0); Potassium 3.2 mmol/L (3.5-5.1); Total Protein 6.3 gm/dl (6.0-8.3)
[2023-10-31] MEDS: POTASSIUM CHLORIDE CRTAB 20 MEQ TABCR PO STA (07:30)
[2023-10-31] MEDS: METOPROLOL TARTRATE 25 MG TAB PO ONE ×2 (12:52→20:20)
[2023-10-31 14:10] LABS: Ehrlichia chaff DNA Bld Negative (Negative)
[2023-11-01 07:03] LABS: Hematocrit (blood only) 35.5 % (42.0-52.0); Mean Corpuscular Hemoglobin 30.6 pg (25.0-34.0); Mean Corpuscular Hgb Conc 33.8 g/dL (32.0-36.0); Mean Corpuscular Volume 90.6 fL (80.0-100.0); Mean Platelet Volume 11.3 fL (9.4-12.4); Platelet Count 206 K/uL (130-400); RDW Coefficient of Variation 12.7 % (11.5-14.5); RDW Standard Deviation 42.4 fL (36.4-46.3); Red Blood Count 3.92 M/uL (4.70-6.10); White Blood Count 6.49 K/ul (4.8-10.8)
[2023-11-01 07:17] LABS: Albumin Globulin Ratio 1.1 (0.9-2); Albumin Level 3.3 gm/dl (3.4-5.0); BUN Creatinine Ratio 24.3 (10-20); Bilirubin,Total 1.4 mg/dl (0.2-1.0); Calcium 9.5 mg/dl (8.6-10.3); Creatinine Clr Calc Pharmacy 21.4 ml/min; Est GFR (African American) 19.1 ml/min; Est GFR (Non-African American) 16.5 ml/min; Globulin 3.1 gm/dl (2.5-4.0); Potassium 3.7 mmol/L (3.5-5.1); Total Protein 6.4 gm/dl (6.0-8.3)
--- NOTE | 2023-11-01 08:40 | Hospitalist Progress Note ---
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 ELANA secondary to ATN - Cr prior WNL; Cr peaked at 6.86 (10/25) - Cr continuing to trend downward - recommended outpatient BMP f/u to ensure continued downtrend Anaplasmosis - recent tick bite and 4 days of generally feeling unwell prior to admission - lyme, ehrlichia, and babesiosis negative; positive for anaplasmosis - lab work continues to improve in terms of anemia, thrombocytopenia, and transaminitis - blood cx negative, urine cx negative - started doxy in the ED on 10/25/23; continue 100 mg BID for 10 days (end date 11/03/23) Sternal fracture with retrosternal contusion - post traumatic sternal fracture with retrosternal contusion - continue lidocaine patches, tylenol, and opioid regimen PRN - PT/OT following; recommending home with home PT Afib - reportedly patient in afib ~25 years ago- self resolved- wasn't started on blood thinners. Had a CVA 2 yrs ago and second CVA 2 months ago - CHADs-VASc = 6 - TSH WNL - Echo: TTE on 10/26/23: EF 50-55%. No visualized regional wall motion abnormalities - discussed need for anticoagulation with patient; discussed risks and benefits; pt prefers to start anticoagulation - start eliquis 2.5 mg BID while hospitalized which will be continued upon discharge; as kidney function recovers, expect pt will need dose increase - began metoprolol 12.5 mg which was tolerated well (even with slightly elevated HR this AM); will increase to 25 mg tonight - recommend close outpatient f/u; consider sleep study Anemia - in the setting of Anaplasmosis and fluids; no signs of active bleeding; hemodynamically stable - monitor for stability Transaminitis- resolving - in the context of anaplasmosis -appears to have peaked on 10/26; has continued to trend downward History of CVA with residual hemiparesis affecting left side - restart daily plavix Hyperlipidemia - continue to hold rosuvastatin 40 mg PO and ezetimibe 10 mg PO in the setting of transaminitis from anaplasma Hypertension - continue to hold lisinopril 40 mg PO, chlorthalidone 25 mg PO, and amlodipine 10 mg PO - upon discharge, will plan to restart amlodipine prior to restarting his diuretics for BP control Metabolic Acidosis, increase anion gap - resolved - acute metabolic acidosis with partial respiratory compensation - in the setting of significant ELANA Thrombocytopenia - resolved - in the context of anaplasmosis Hypotension - resolved - presumed hypovolemic hypotension with compensatory tachycardia - blood pressure stable FEN: heart healthy diet Code status: full code DVT ppx: Eliquis 2.5 mg po BID Dispo: PCU/Tele; plan to discharge home with home PT when medications stable Admission and Anticipated Discharge Date Admission Date: October 25, 2023 Supervising Physician Co-Signing Physician Notes ATTESTATION I also saw the patient and confirmed reyes portions of the history and exam. I agree with the impression and plan in the resident and student documentation, and as clarified/corrected and summarized below. He again notes that he is feeling better in terms of strength. Friends are visiting at bedside. EXAM 116/77, 89, 18, 36.5, 96% room air Review of telemetry again shows atrial fibrillation, mostly in the 80s90s, spikes to the 110s with activity; no bradycardia A/O. Conversational. NAD Heart irregularly irregular Lungs clear with non labored respirations DATA Labs HgB 12 Potassium 3.7, sodium 141, creatinine 3.41, BUN 83 AST 50, ALT 64, alkaline phosphatase 301 IMPRESSION & PLAN Anaplasmosis/sepsis, improving ARF/ATN Fall with sternal fracture Afib with controlled ventricular response Continue PT/OT Continued evidence of renal recovery Daily BMP Complete course of Doxycycline Increase Toprol to 25 mg q PM Low-dose apixaban; may need full dose once renal function completely recovers Additional per resident documentation Subjective Pt doing well this morning. Still with some sternal pain but pain relieved with tylenol. He is progressing well with PT. Otherwise, no new concerns. Review of Systems Review of Systems: As per HPI Physical Exam Physical Exam: Constitutional: well appearing, no acute distress HEENT: normocephalic, no conjunctival injection CV: irregular rhythm, regular rate, no murmur, no LE edema Respiratory: Clear to auscultation bilaterally. No rhonchi, wheezes, or crackles. No increased work of breathing MSK: no gross deformities noted Skin: warm, dry, no rashes Neuro: alert, oriented, no FND noted Results & Data Results & Data Vital Signs (Past 12 Hours) Vital Signs Temp Pulse Pulse Resp BP Pulse Ox O2 Del Method 11/01/23 07:51 36.5 C 95 H 18 129/80 96 Room Air 11/01/23 07:28 85 11/01/23 02:42 36.4 C L 79 17 119/77 97 Room Air 10/31/23 22:52 36.7 C 74 18 136/90 96 Room Air 10/31/23 22:00 84 Resident Activity Tracking Resident Involvement: Resident Care Provided Care Provided: Adult Hospital Medicine (6) Sternal fracture with retrosternal contusion Encounter type: initial encounter Fracture type: closed Qualified Code(s): S22.20XA - Unspecified fracture of sternum, initial encounter for closed fracture
[2023-11-01] MEDS: APIXABAN 2.5 MG TAB PO SCH (09:00)
[2023-11-01] MEDS: CLOPIDOGREL BISULFATE 75 MG TAB PO SCH (09:43)
[2023-11-01] MEDS: LIDOCAINE 5% 1 PATCH TD STA (17:42)
[2023-11-01 17:53] LABS: Q Fever IgG, Phase I NEGATIVE; Q Fever Phase I IgM Antibody NEGATIVE; Q Fever Phase II IgG Antibody NEGATIVE; Q Fever Phase II IgM Antibody NEGATIVE; R. typhi IgG Ab NOT DETECTED; R. typhi IgM Ab NOT DETECTED; RMSF IgG Ab NOT DETECTED; RMSF IgM Ab NOT DETECTED
[2023-11-01] MEDS: METOPROLOL TARTRATE 25 MG TAB PO SCH (19:37)
[2023-11-02 06:46] LABS: Hematocrit (blood only) 35.4 % (42.0-52.0); Mean Corpuscular Hemoglobin 31.1 pg (25.0-34.0); Mean Corpuscular Hgb Conc 33.9 g/dL (32.0-36.0); Mean Corpuscular Volume 91.7 fL (80.0-100.0); Mean Platelet Volume 11.5 fL (9.4-12.4); Platelet Count 177 K/uL (130-400); RDW Coefficient of Variation 12.7 % (11.5-14.5); RDW Standard Deviation 42.1 fL (36.4-46.3); Red Blood Count 3.86 M/uL (4.70-6.10); White Blood Count 6.58 K/ul (4.8-10.8)
[2023-11-02 06:50] LABS: Albumin Globulin Ratio 1.1 (0.9-2); Albumin Level 3.4 gm/dl (3.4-5.0); BUN Creatinine Ratio 25.6 (10-20); Bilirubin,Total 1.3 mg/dl (0.2-1.0); Calcium 9.8 mg/dl (8.6-10.3); Creatinine Clr Calc Pharmacy 24.9 ml/min; Est GFR (Non-African American) 19.8 ml/min; Potassium 3.5 mmol/L (3.5-5.1); Total Protein 6.4 gm/dl (6.0-8.3)
--- NOTE | 2023-11-02 09:43 | Hospitalist Progress Note ---
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 Acute Tubular Necrosis - Cr prior WNL; Cr peaked at 6.86 (10/25) - Cr continuing to trend downward - recommended outpatient BMP f/u to ensure continued downtrend Anaplasmosis - recent tick bite and 4 days of generally feeling unwell prior to admission - lyme, ehrlichia, and babesiosis negative; positive for anaplasmosis - lab work continues to improve in terms of anemia, thrombocytopenia, and transaminitis - blood cx negative, urine cx negative - started doxy in the ED on 10/25/23; continue 100 mg BID for 10 days (end date 11/03/23) Sternal Fracture with Retrosternal Contusion - post traumatic sternal fracture with retrosternal contusion - continue lidocaine patches, tylenol, and opioid regimen PRN - PT/OT following; recommending home with home PT Atrial Fibrillation - reportedly patient in afib ~25 years ago- self resolved- wasn't started on blood thinners. Had a CVA 2 yrs ago and second CVA 2 months ago - CHADs-VASc = 6 - TSH WNL - Echo: TTE on 10/26/23: EF 50-55%. No visualized regional wall motion abnormalities - discussed need for anticoagulation with patient; discussed risks and benefits; pt prefers to start anticoagulation - start eliquis 2.5 mg BID while hospitalized which will be continued upon discharge; as kidney function recovers, expect pt will need dose increase -Continue metoprolol 25 mg nightly - recommend close outpatient f/u; consider sleep study Anemia - in the setting of Anaplasmosis and fluids; no signs of active bleeding; hemodynamically stable - monitor for stability Transaminitis- resolving - in the context of anaplasmosis -appears to have peaked on 10/26; has continued to trend downward History of CVA with Residual Hemiparesis Affecting Left Side - restart daily plavix Hyperlipidemia - continue to hold rosuvastatin 40 mg PO and ezetimibe 10 mg PO in the setting of transaminitis from anaplasma Hypertension - continue to hold lisinopril 40 mg PO, chlorthalidone 25 mg PO, and amlodipine 10 mg PO - upon discharge, will plan to restart amlodipine prior to restarting his diuretics for BP control Metabolic Acidosis, increase anion gap - resolved - acute metabolic acidosis with partial respiratory compensation - in the setting of significant ELANA Thrombocytopenia - resolved - in the context of anaplasmosis Hypotension - resolved - presumed hypovolemic hypotension with compensatory tachycardia - blood pressure stable FEN: heart healthy diet Code status: full code DVT ppx: Eliquis 2.5 mg po BID Dispo: PCU/Tele; plan to discharge home with home PT when medications stable (2) Hypotension: (3) ELANA (acute kidney injury): (4) Atrial fibrillation with rapid ventricular response: (5) Metabolic acidosis, increased anion gap: (6) Sternal fracture with retrosternal contusion: (7) Hemiparesis affecting left side as late effect of cerebrovascular accident: (8) Hypercholesterolemia: (9) Hypertension: (10) Transaminitis: (11) Anemia: Admission and Anticipated Discharge Date Admission Date: October 25, 2023 Supervising Physician Co-Signing Physician Notes I personally examined the patient and verified reyes points of history and exam, discussed case, and agree with decision making and plan documented by Dr. Gross. On exam, patient states that he feels much better from admission, renal function continues to show improvement, and rest of labs are normalizing. Vital signs are stable, rate controlled on metoprolol. Patient states that sternal fracture pain is tolerable, he has a lidocaine patch on. Patient had a bowel movement, no longer on opiates. No bleeding on Eliquis, will need dose adjustment with improvement of kidney function. Anticipate discharge home tomorrow with PCP follow-up. Subjective No acute events overnight. Patient managing his sternal pain well without as needed Dilaudid. Has been ambulating to and from the toilet without difficulty. He does not want to go home today, as he lives alone. His neighbors, who check on him, will not be around until tomorrow. He denies headache, chest pain, shortness of breath, nausea, vomiting, or diarrhea. Review of Systems Review of Systems: All systems reviewed & are unremarkable except as noted in HPI & below Physical Exam Physical Exam: General: no acute distress, speaking in full sentences Resp: good inspiratory effort, no labored breathing HEENT: conjunctivae appear clear, no audible congestion, no swelling noted face or lips Skin: skin appears dry, normal coloration, no rash visible on exposed skin areas Neuro: alert and oriented x3, no focal deficits appreciated Psych: euthymic affect, pleasant and interactive, logical thought process Results & Data Results & Data Vital Signs (Past 12 Hours) Vital Signs Temp Pulse Resp BP Pulse Ox O2 Del Method 11/02/23 08:01 36.3 C L 71 16 129/82 95 Room Air 11/02/23 03:04 36.4 C L 79 18 127/81 91 Room Air 11/01/23 23:14 36.5 C 77 18 124/76 95 Room Air Resident Activity Tracking Resident Involvement: Resident Care Provided Care Provided: Adult Hospital Medicine (6) Sternal fracture with retrosternal contusion Encounter type: initial encounter Fracture type: closed Qualified Code(s): S22.20XA - Unspecified fracture of sternum, initial encounter for closed fracture
[2023-11-03 06:48] LABS: Hematocrit (blood only) 35.8 % (42.0-52.0); Hemoglobin 12.1 g/dl (14.0-18.0); Mean Corpuscular Hemoglobin 30.9 pg (25.0-34.0); Mean Corpuscular Hgb Conc 33.8 g/dL (32.0-36.0); Mean Corpuscular Volume 91.3 fL (80.0-100.0); Mean Platelet Volume 11.3 fL (9.4-12.4); Platelet Count 178 K/uL (130-400); RDW Coefficient of Variation 12.6 % (11.5-14.5); RDW Standard Deviation 41.5 fL (36.4-46.3); Red Blood Count 3.92 M/uL (4.70-6.10); White Blood Count 6.18 K/ul (4.8-10.8)
--- NOTE | 2023-11-03 07:34 | Hospitalist Progress Note ---
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 Acute Tubular Necrosis - Cr prior WNL; Cr peaked at 6.86 (10/25) - Cr continuing to trend downward - recommended outpatient BMP f/u to ensure continued downtrend Anaplasmosis - recent tick bite and 4 days of generally feeling unwell prior to admission - lyme, ehrlichia, and babesiosis negative; positive for anaplasmosis - lab work continues to improve in terms of anemia, thrombocytopenia, and transaminitis - blood cx negative, urine cx negative - started doxy in the ED on 10/25/23; continue 100 mg BID for 10 days (end date 11/03/23) Sternal Fracture with Retrosternal Contusion - post traumatic sternal fracture with retrosternal contusion - continue lidocaine patches, tylenol, and opioid regimen PRN - PT/OT following; recommending home with home PT Atrial Fibrillation - reportedly patient in afib ~25 years ago- self resolved- wasn't started on blood thinners. Had a CVA 2 yrs ago and second CVA 2 months ago - CHADs-VASc = 6 - TSH WNL - Echo: TTE on 10/26/23: EF 50-55%. No visualized regional wall motion abnormalities - discussed need for anticoagulation with patient; discussed risks and benefits; pt prefers to start anticoagulation - start eliquis 2.5 mg BID while hospitalized which will be continued upon discharge; as kidney function recovers, expect pt will need dose increase -Continue metoprolol 25 mg nightly - recommend close outpatient f/u; consider sleep study Anemia - in the setting of Anaplasmosis and fluids; no signs of active bleeding; hemodynamically stable - monitor for stability Transaminitis- resolving - in the context of anaplasmosis -appears to have peaked on 10/26; has continued to trend downward History of CVA with Residual Hemiparesis Affecting Left Side - restart daily plavix Hyperlipidemia - continue to hold rosuvastatin 40 mg PO and ezetimibe 10 mg PO in the setting of transaminitis from anaplasma Hypertension - continue to hold lisinopril 40 mg PO, chlorthalidone 25 mg PO, and amlodipine 10 mg PO - upon discharge, will plan to restart amlodipine prior to restarting his diuretics for BP control Metabolic Acidosis, increase anion gap - resolved - acute metabolic acidosis with partial respiratory compensation - in the setting of significant ELANA Thrombocytopenia - resolved - in the context of anaplasmosis Hypotension - resolved - presumed hypovolemic hypotension with compensatory tachycardia - blood pressure stable FEN: heart healthy diet Code status: full code DVT ppx: Eliquis 2.5 mg po BID Dispo: PCU/Tele; plan to discharge home with home PT when medications stable (2) Hypotension: (3) ELANA (acute kidney injury): (4) Atrial fibrillation with rapid ventricular response: (5) Metabolic acidosis, increased anion gap: (6) Sternal fracture with retrosternal contusion: (7) Hemiparesis affecting left side as late effect of cerebrovascular accident: (8) Hypercholesterolemia: (9) Hypertension: (10) Transaminitis: (11) Anemia: Admission and Anticipated Discharge Date Admission Date: October 25, 2023 Review of Systems Review of Systems: As per HPI Results & Data Results & Data Vital Signs (Past 12 Hours) Vital Signs Temp Pulse Pulse Resp BP BP Pulse Ox 11/03/23 07:05 36.5 C 71 18 123/69 98 11/03/23 02:35 36.4 C L 84 16 117/78 94 11/03/23 00:00 61 11/02/23 22:41 36.8 C 57 L 18 113/75 94 11/02/23 20:05 O2 Del Method 11/03/23 07:05 Room Air 11/03/23 02:35 Room Air 11/03/23 00:00 11/02/23 22:41 Room Air 11/02/23 20:05 Room Air (6) Sternal fracture with retrosternal contusion Encounter type: initial encounter Fracture type: closed Qualified Code(s): S22.20XA - Unspecified fracture of sternum, initial encounter for closed fracture
[2023-11-03 07:46] LABS: Albumin Globulin Ratio 1.2 (0.9-2); Albumin Level 3.5 gm/dl (3.4-5.0); BUN Creatinine Ratio 27.1 (10-20); Bilirubin,Total 1.2 mg/dl (0.2-1.0); Calcium 9.9 mg/dl (8.6-10.3); Est GFR (African American) 29.9 ml/min; Est GFR (Non-African American) 25.8 ml/min; Globulin 2.9 gm/dl (2.5-4.0); Potassium 3.6 mmol/L (3.5-5.1); Total Protein 6.4 gm/dl (6.0-8.3)
--- NOTE | 2023-11-03 11:25 | Discharge Summary ---
Date of Service November 03, 2023 Admission HPI Per Admitting Provider 78 y/o male with a PMHx of CVA with residual left sided weakness, HLD, and HTN presents with generalized weakness and malaise. Patient with MSK complaints started 3-4 days ago describes as lower back pain. Decreased appetite and PO intake. Did have some dizziness throughout the day and very slight shortness of breath. When getting out of bed today he felt dizzy and "collapsed" striking his chest on the bedside table. Did not strike his head. No LOC. Patient with significant pain in that area since the incident. No CP, nausea, vomiting, abdominal pain. Has not been eating much so he has not been moving his bowels. No pain or burning with urination. No blood in his urine. Admission Exam Per Admitting Provider Gen: ill appearing, non-toxic patient in NAD HEENT: AT NC MMM OP clear no lymphadenopathy Resp: CTAB no wheezing no increased work of breathing CV: tachycardic, regular rate, no m/r/g clinically well perfused, TTP over the sternum with some swelling and light ecchymosis Abd: +BS, soft, non-tender, non-distended MSK: no obvious deformities Skin: no rashes or bruising Neuro: alert and oriented Psych: appropriate mood and affect Principal Diagnosis Acute tubular necrosis, Anaplasmosis, Atrial fibrillation, Sternal fracture Discharge Exam Constitutional WD/WN, vitals as above Eyes PERRL, conjunctivae normal, anicteric sclerae Respiratory normal respiratory effort, lungs clear to auscultation Cardiovascular Rate/Rhythm: + irregularly irregular Heart Sounds: normal S1 and normal S2 Gastrointestinal (Abdomen) normal bowel sounds, soft, nontender, no hepatosplenomegaly Psychiatric A+Ox3, euthymic affect Discharge Data Allergies Allergy/AdvReac Type Severity Reaction Status Date / Time No Known Allergies Allergy Verified 10/25/23 01:10 Consultations 10/25/23 03:17 ED Decision to Admit Stat Ordered Studies 10/25/23 00:51 CT cervical spine wo con Stat IMPRESSION: Degenerative disease as described with no acute fracture or subluxation. CT head/brain wo con Stat IMPRESSION: Chronic changes as described with no acute intracranial hemorrhage or space-occupying lesion. 10/25/23 01:37 CT abd pelvis wo con Stat IMPRESSION: 1. No evidence of visceral or intra-abdominal injury. 2. Tiny calcifications along the posterior right bladder wall suggestive of previously passed small calculi. 3. Splenic granulomata suggestive of old blood in vomitus infection. Nonspecific bilateral perinephric stranding. Otherwise unremarkable abdominal viscera. CT chest diagnostic wo con Stat IMPRESSION: 1. Fracture involving the lower aspect of the sternum with mild separation through the fracture line and mild retrosternal swelling/hematoma. 2. Mild bilateral lower lobe atelectasis, otherwise no acute cardiopulmonary disease. 3. No pleural effusion or pneumothorax. Hospital Course (1) Anaplasmosis: (2) Hypotension: (3) ELANA (acute kidney injury): (4) Atrial fibrillation with rapid ventricular response: (5) Metabolic acidosis, increased anion gap: (6) Sternal fracture with retrosternal contusion: (7) Hemiparesis affecting left side as late effect of cerebrovascular accident: (8) Hypercholesterolemia: (9) Hypertension: (10) Transaminitis: (11) Anemia: Flavia Yakov Davis is a 78 year old male with a PMHx of CVA (x2) with residual left sided weakness, HLD, and HTN who was admitted on 10/25/23 for concerns of generalized weakness and malaise for 4 days [employer]. 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 Acute Tubular Necrosis - Cr prior WNL; Cr peaked at 6.86 (10/25) - Possibly due to anaplasmosis infection. - Cr continued to trend downward during stay. - Cr 2.36 on day of discharge. - Placed outpatient BMP order and told patient to get blood work done Sunday or Sunday. - F/u with PCP next few weeks. Atrial Fibrillation - reportedly patient in afib ~25 years ago- self resolved- wasn't started on blood thinners. Had a CVA 2 yrs ago and second CVA 2 months ago - CHADs-VASc = 6 - TSH WNL - Echo: TTE on 10/26/23: EF 50-55%. No visualized regional wall motion abnormalities - discussed need for anticoagulation with patient; discussed risks and benefits; pt prefers to start anticoagulation - started eliquis 2.5 mg BID while hospitalized which will be continued upon discharge; as kidney function recovers, expect pt will need dose increase to 5mg BID. - Started on metoprolol tartrate 25mg nightly for rate control. Sent script for continuation on discharge. - recommend close outpatient f/u; consider sleep study - Patient will likely need cardiology evaluation outpatient since he is on Eliquis and clopidogrel. Anaplasmosis - recent tick bite and 4 days of generally feeling unwell prior to admission - lyme, ehrlichia, and babesiosis negative; positive for anaplasmosis - lab work continues to improve in terms of anemia, thrombocytopenia, and transaminitis - blood cx negative, urine cx negative - started doxy in the ED on 10/25/23; continue 100 mg BID for 10 days total (end date 11/03) Sternal Fracture with Retrosternal Contusion - post traumatic sternal fracture with retrosternal contusion - continue lidocaine patches, tylenol, and opioid regimen PRN - PT/OT following; recommending home with home PT Anemia - in the setting of Anaplasmosis and fluids; no signs of active bleeding; hemodynamically stable - Stable at 12. Transaminitis- resolving - in the context of anaplasmosis -appears to have peaked on 10/26; has continued to trend downward Hypertension - continue to hold lisinopril 40 mg PO, chlorthalidone 25 mg PO, and amlodipine 10 mg PO - Added metoprolol tartrate 25mg qPM for rate control for A. fib as above. Thrombocytopenia - resolved - in the context of anaplasmosis Total Time Total Time Spent Total Time Spent (In Minutes): 34. Total Time Includes: Examination of the Patient, Discharge Planning, Medication Reconciliation and Communication With Other Providers Discharge Plan Discharge Items Patient Disposition: Home - Self-Care Reason For Visit: malaise Discharge Diagnosis: Anaplasma Activity: Per Instructions section Non-emergency contact: Primary Care Provider Call non-emergency contact if: your symptoms worsen, your pain is worsening and your temperature is above 101 Follow-up/Referrals: Vadim Wang MD [Primary Care Provider] - 11/13/23 3:00 pm (Hospital follow up scheduled November 12 at 3:00 with Sierra Chun) Diet: Regular Ambulatory Orders: Basic Metabolic Panel (Routine) Timeframe: 4 Days Location: Determined by Patient Ordered By: Bruno Hill Attending Provider Instructions: Dear Yakov, You came to the hospital due to back pain, decreased appetite, dizziness, and a fall. You were found to have an infection with the tick borne illness Anaplasma. You were treated with the antibiotic doxycycline throughout your stay with good improvement. You were also quite dehydrated when you arrived, which resulted in an acute kidney injury (ELANA) so severe that it, in turn, resulted in an intrinsic kidney injury known as acute tubular necrosis (ATN). You were given IV fluids and were watched with daily labs, until your kidney function gradually improved, which it has. After consulting with our kidney specialists, we decided that you are now ready to be safely discharged home, with physical therapy. Additionally, during your stay, we discovered that your heart rhythm was irregularly irregular, a condition known as atrial fibrillation. We started you on a blood thinner to protect you, and also started you on a beta kristyn, to help reduce your heart rate slightly enough to help improve your heart rhythm. 1. We are sending you home with your 3 more doses of doxycycline before you leave. Take doxycycline 100 mg this evening, tomorrow morning, and tomorrow evening. Do not take on an empty stomach. 2. We started you on a medication called Eliquis (or apixaban) to your pharmacy. Take Eliquis 2.5 mg twice a day until you follow up with your primary care provider (PCP). This medication is an anticoagulant meant to protect you from blood clots, for which you are increased risk because of your atrial fibrillation. Your PCP will decide to either continue at that dose or adjust it. (We provided you with 2 coupons for at least 2 months' worth of Eliquis for free. Present each coupon to your pharmacist when you show up to obtain your prescription) 3. We are also sending a medication called metoprolol succinate to your pharmacy. Please take metoprolol succinate 25 mg each night before bedtime. Continue to take as directed unless otherwise instructed to by your PCP. 4. A follow-up appointment with your PCP, Dr. Vadim Wang, will be made for you by our hospital swimming pool serviceperson. It is incredibly important that you go to this follow-up appointment so that your PCP is aware of your recent hospital stay. If you have not heard from his clinic after 3 business days, you can call his clinic at [phone] to schedule an appointment. If you are unable to contact his office, you should call this hospital at [phone] and ask to speak with the hospital swimming pool serviceperson. The swimming pool serviceperson will help you make an appointment with one of our outpatient providers. It has been our pleasure to care for you here at [facility]. If you have any questions about your stay, please call us at [phone]. Pending Studies at Discharge: No Stand-Alone Forms: My [facility], Smoking Cessation Medications and DC Order Prescriptions: New Eliquis 2.5 mg tablet 2.5 mg PO BID Qty: 60 1RF metoprolol tartrate 25 mg Tablet 25 mg PO QPM 30 Days Qty: 30 0RF doxycycline hyclate 100 mg capsule 100 mg PO BID Qty: 3 0RF Rx Instructions: Take 3 more doses of doxycycline (11/02 evening, 11/03 AM and evening). Take after food, do not take on empty stomach. Continued mecobalamin (vitamin B12) 1,000 mcg tablet,chewable 1,000 mcg PO DAILY Qty: 30 0RF clopidogrel [Plavix] 75 mg tablet 75 mg PO DAILY Qty: 90 3RF amoxicillin 500 mg tablet 2,000 mg PO UD PRN (Reason: prior to dental procedures) Qty: 16 2RF amlodipine 10 mg tablet 10 mg PO DAILY Qty: 90 3RF acetaminophen [Tylenol Extra Strength] 500 mg Tablet 1,000 mg PO Q6H PRN (Reason: Pain) triamcinolone acetonide 0.025 % cream 1 applic topical BID PRN (Reason: Skin Irritation) ezetimibe [Zetia] 10 mg tablet 10 mg PO HS rosuvastatin 40 mg tablet 40 mg PO HS Held lisinopril 40 mg tablet 40 mg PO DAILY Qty: 90 3RF Hold Instructions: Resume on 11/14/23. chlorthalidone 25 mg tablet 25 mg PO HS Hold Instructions: Resume on 11/14/23. Discharge Orders: Discharge Order (Routine); Ordered 11/03/23 Ordered By: Bruno Villela Admission Data Admit Date/Time: 10/25/23 04:07 Attending Provider: Samia Jalloh Admit Provider: Jesusita Ruiz Primary Care Provider: Vadim Wang Other Providers: Delmis De León; Moore,Home [facility] Other Interventions: Discharge Summary Assessment (RN) Last Done: 11/03/23 11:27 Supervising Physician Co-Signing Physician Notes I personally examined the patient and verified reyes points of history and exam, discussed case, and agree with decision making and plan documented by Dr. Villela. Acute presentation of anaplasmosis with associated ATN and posttraumatic sternal fracture. Patient with new onset of atrial fibrillation, was started on Eliquis, will be recommended follow-up with PCP for monitoring of renal function and appropriately titrating dose. Patient also initiated on metoprolol succinate. 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 Patient advised to restart antihypertensives slowly and under the supervision of his PCP. Recommendation to complete doxycycline course as prescribed. Patient appears comfortable, lungs clear b/l to auscultation, regular rate and rhythm, no acute distress. He will have home PT on discharge. Resident Activity Tracking Resident Involvement: Resident Care Provided Care Provided: Adult Hospital Medicine
--- NOTE | 2023-11-06 08:55 | Coding Query ---
CODING QUERY To promote full compliance with coding requirements relating to patient care, provider participation is requested in all cases of superintendent compressor stations uncertainty. Please assist us with the question(s) below: Clinical Indicators: Emergency Department Note: * WBC within normal limits. H/H similar to prior. Platelets low at 70 K. VBG with pH of 7.3 with component of respiratory compensation with pCO2 of 30. Chemistry demonstrates increased anion gap metabolic acidosis with anion gap of 16 and bicarbonate of 17. Creatinine is acutely elevated at 6.4 with BUN of 118. Lactic acid 1.2, within normal limits. H&P: * Anaplasmosis * ELANA (acute kidney injury) * Metabolic acidosis, increased anion gap * Vitals: Pulse - 92; Resp - 20; BP - 108/53; Pulse Ox - 95 Hospitalist Note (10/24, 10/25, 10/27): * anaplasmosis/sepsis - doxy, supportive care, time Hospitalist Note (10/28 - 10/31): * Anaplasmosis/sepsis, improving * started doxy in the ED on 10/25/23; continue 100 mg BID for 10 days (end date 11/03/23) Coding Question(s): Without further mention of sepsis in the Discharge Summary, are you able to clarify if sepsis was: * Ruled in XXX ruled in / present on admission * Ruled out * Other (please specify) * Unable to determine. Physician's Response(s): Thank you Dinora Ferreira Principal Diagnosis: "that condition established after study, to be chiefly responsible for occasioning the admission of the patient to the hospital for care." Co-Existing Principal Diagnosis: "when two or more diagnoses equally meet the criteria for principal diagnosis as determined by the circumstances of admission, diagnostic work up, and/or therapy provided, and the Alphabetic Index, Tabular List, or another coding guideline does not provide sequencing direction, any one of the diagnoses may be sequenced first." "When the physician has documented what appears to be a current diagnosis in the body of the record, but has not included the diagnosis in the final diagnostic statement, the physician should be asked whether the diagnosis should be added." (Source Coding Clinic 2 QTR90. p3-4) ELIJAH
== END 2023-11-03 11:58 | disposition home or self-care (01) | DRG 871 ==
LOC: SUATTDRO → ED 00:20 → 2S 04:07 → SUATTDRO 04:07 → 2S 08:09